=== PATIENT | female | born 1955 | race Caucasian/White ===

== ENCOUNTER 2019-11-13 14:15 | Outpatient (AMBR) | payer MEDICAID, SELFPAY ==
--- NOTE | 2019-11-13 14:25 | PT.OIERPT ---
PT OP Initial Eval Patient Information Visit Reasons: polyarthritis Medical Diagnosis: M13.0 Treatment Dx #1: B LE pain Start of Care: 11/13/19 Date of Onset: progressive Initial Assessment Subjective Pt is 63 yr old female with c/o multiple sites of pain R ankle and foot, L/S, R hip and neck pain. The L knee is numb and she reports B hand OA. The main concern are the back, R hip and foot. Increased pain with walking on uneven ground, prolonged standing, sitting and bending. Her balance feels off and she has trouble standing up from seated position. PMH: C-sections, HTN, allergies, thyroidism, Hx of falls with LOC, mini-stroke Imaging: in EMR Pt goal: to walk straighter with better balance, she would like to stand up easier. 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 Pt has R LE weakness compared to the L and difficulty with SLR attributed to bursitis and LBP. Pt has decreased R LE advancement and step length compared to the L and decreased foot clearance. Pt requires skilled therapy in order to improve R LE strength, decrease pain and she has fair rehab potential. 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 Ind with HEP 2. Improved R LE strength to at least 4-/5 quads and HS 3. Pt will SLR to at least 50 deg on R 4. Pt will ambulate with symmetrical step length and B feet will clear the floor for 100' Treatment Plan 1. Manual therapy 2. Therex 3. Modalities as indicated, moist heat, ice, estim Frequency and Duration 2x a week for 6 weeks Certification Dates: 11/13/19 to 02/13/20 Office Procedures PT Procedures PT Date of Service: 11/13/19 OP PT Eval Mod Complex 30 minutes: Yes
--- NOTE | 2019-11-18 17:32 | PT.ODAYNRPT ---
PT Outpatient Daily Note Date of Service: 11/18/19 OP Daily Note Visit Reasons: polyarthritis Outpatient Physical Therapy Treatment Date: 11/18/19 Subjective: Same as time of evaluation Objective: See F/S for therex MHP L knee x5' Assessment: Good response to therex with low tissue irritability and no significant increase in L knee pain or LBP. Plan: Continue per POC Length of Time (minutes) of Treatment: 30 Minutes Office Procedures PT Procedures PT Date of Service: 11/13/19 OP PT Eval Mod Complex 30 minutes: Yes PT Procedures PT Date of Service: 11/18/19 Therapeutic Exercise 30 minutes: Yes
--- NOTE | 2019-11-20 18:43 | PT.ODAYNRPT ---
PT Outpatient Daily Note Date of Service: 11/20/19 OP Daily Note Pediatric or Adult Patient: Adult PT >13 Visit Reasons: polyarthritis Outpatient Physical Therapy Treatment Date: 11/20/19 Subjective: My legs have been wanting to give out today she points to the L LE and says it cramps and then wants to give out Objective: See F/S for therex Assessment: Pt was not feeling like her LE's were strong today so she did supine therex instead. Pt has genu valgus knee biomechanics in standing and seems to be moving constantly nervously. Good response to supine therex with low tissue irritability and no significant increase in L knee pain or LBP. Plan: Continue per POC Length of Time (minutes) of Treatment: 30 Minutes Office Procedures PT Procedures PT Date of Service: 11/13/19 OP PT Eval Mod Complex 30 minutes: Yes PT Procedures PT Date of Service: 11/18/19 Therapeutic Exercise 30 minutes: Yes PT Procedures PT Date of Service: 11/20/19 Therapeutic Exercise 30 minutes: Yes
== END 2019-11-21 23:59 | disposition home or self-care (01) ==
PROVIDERS: PCP Physician Assistant; Referring Provider Physician Assistant; Visit Provider Physician Assistant
DX: M13.0 Polyarthritis, unspecified (principal); M25.571 Pain in right ankle and joints of right foot; M25.551 Pain in right hip; M54.2 Cervicalgia; M54.5 Low back pain; R53.1 Weakness; R20.0 Anesthesia of skin; I10 Essential (primary) hypertension
CPT/HCPCS: 97110; 97162

== ENCOUNTER 2019-12-03 14:40 | Outpatient (AMBR) | payer MEDICAID, SELFPAY ==
--- NOTE | 2019-12-03 15:53 | PT.ODAYNRPT ---
PT Outpatient Daily Note Date of Service: 12/03/19 OP Daily Note Visit Reasons: polyarthritis Outpatient Physical Therapy Treatment Date: 12/03/19 Subjective: Pt reports high LBP level on Sunday and Sunday this week with dizziness and unsteady balance that has resolved. Objective: See F/S for therex Assessment: Pt is sometimes impulsive with her movements and she rocks back and forth in standing. She stands with B knee valgus. Able to perform the therex in supine and the recumbent bike without significant pain. Plan: Continue per POC Length of Time (minutes) of Treatment: 30 Minutes Office Procedures PT Procedures PT Date of Service: 12/03/19 Therapeutic Exercise 30 minutes: Yes
== END 2019-12-22 23:59 | disposition home or self-care (01) ==
PROVIDERS: PCP Physician Assistant; Referring Provider Physician Assistant; Visit Provider Physician Assistant
DX: M13.0 Polyarthritis, unspecified (principal); M79.662 Pain in left lower leg; M79.661 Pain in right lower leg; M25.572 Pain in left ankle and joints of left foot; M25.571 Pain in right ankle and joints of right foot; M54.2 Cervicalgia; M54.5 Low back pain; M25.551 Pain in right hip; R20.0 Anesthesia of skin; I10 Essential (primary) hypertension
CPT/HCPCS: 97110

== ENCOUNTER 2019-12-26 13:29 | Outpatient (AMBR) | payer MEDICARE, MEDICAID, SELFPAY ==
--- NOTE | 2019-12-26 14:41 | PT.ODAYNRPT ---
PT Outpatient Daily Note Date of Service: 12/26/2019 OP Daily Note Visit Reasons: polyarthritis Outpatient Physical Therapy Treatment Date: 12/26/19 Subjective: pt stated she fell a weeks ago and landed on her buttocks and does have bruise on the L side. the fall has caused more pain and difficulty with sitting and laying down. Objective: see flow sheet. Assessment: pt needed extra time to adjust her sitting and supine position due to her pain of the buttocks. pt ambulates with antalgic gait pattern. her concern during therapy was to add balance exercises as she feels unsteady. assisted pt with bed mobility supine>sit. she was able to complete the exercises in supine with no complaints. Plan: continue POC per PT. add balance exercises next visit per pt request. Length of Time (minutes) of Treatment: 30 Minutes Office Procedures PT Procedures PT Date of Service: 12/26/19 Therapeutic Exercise 30 minutes: Yes
--- NOTE | 2020-01-08 16:23 | PT.ODAYNRPT ---
PT Outpatient Daily Note Date of Service: 01/08/20 OP Daily Note Visit Reasons: polyarthritis Outpatient Physical Therapy Treatment Date: 01/08/20 Subjective: Pt has variable LE pain that affects her balance. Objective: See F/S for therex Assessment: Balance challenged in tandem stance and on uneven surfaces. Plan: Continue per POC Length of Time (minutes) of Treatment: 30 Minutes Office Procedures PT Procedures PT Date of Service: 12/26/19 Therapeutic Exercise 30 minutes: Yes PT Procedures PT Date of Service: 01/08/20 Therapeutic Exercise 30 minutes: Yes
--- NOTE | 2020-01-20 19:03 | PT.ODAYNRPT ---
PT Outpatient Daily Note Date of Service: 01/20/20 OP Daily Note Pediatric or Adult Patient: Adult PT >13 Visit Reasons: polyarthritis Outpatient Physical Therapy Treatment Date: 01/20/20 Subjective: Pt has variable LE pain that affects her balance. Objective: See F/S for therex Assessment: Balance challenged in tandem stance and on uneven surfaces. Plan: Continue per POC Length of Time (minutes) of Treatment: 30 Minutes Office Procedures PT Procedures PT Date of Service: 01/20/20 Therapeutic Exercise 30 minutes: Yes PT Procedures PT Date of Service: 12/26/19 Therapeutic Exercise 30 minutes: Yes PT Procedures PT Date of Service: 01/08/20 Therapeutic Exercise 30 minutes: Yes
== END 2020-01-21 23:59 | disposition home or self-care (01) ==
PROVIDERS: PCP Physician Assistant; Referring Provider Physician Assistant; Visit Provider Physician Assistant
DX: M13.0 Polyarthritis, unspecified (principal); M25.572 Pain in left ankle and joints of left foot; M25.571 Pain in right ankle and joints of right foot; M54.5 Low back pain; M25.551 Pain in right hip; M54.2 Cervicalgia; R20.0 Anesthesia of skin; R53.1 Weakness; Z91.81 History of falling; I10 Essential (primary) hypertension
CPT/HCPCS: 97110

== ENCOUNTER 2024-03-20 16:27 | Inpatient (IN) | payer MEDICARE, MEDICAID, SELFPAY ==
[2024-03-20] VITALS (8 sets, daily range): BP systolic 117–178; BP diastolic 74–96; PULSE 82–100; RESP 16–23; TEMP 36.6–36.8; O2SAT 86–100; BMI 31.0
--- NOTE | 2024-03-20 16:29 | XR_ITS ---
Examination:Left hip AP, lateral, AP pelvis 3 views Technique: Hip AP lateral, AP pelvis, 3 views Exam date and time:The 24 1712 hrs. Indications: Patient fell today with into the left hip, left hip pain. Findings: Acute impacted fracture subcapital left hip Moderate to advanced bilateral hip osteoarthritis Severe osteopenia Right hip bones of the pelvis intact Impression: Acute impacted left subcapital hip fracture.
--- NOTE | 2024-03-20 16:32 | PD.EDLOWEX ---
Lower Extremity Injury RME/HPI General Chief Complaint: Fall Stated Complaint: FALL Time Seen by Provider: 03/20/24 16:28 Source: patient and EMS Arrival date/time: 03/20/24 16:27 Limitations: no limitations RME / HPI RME / HPI Narrative: History of Present Illness (HPI): The patient was brought in by ambulance (BIBA) after a ground-level fall (GLF). Her foot got tangled in a cord, causing her to fall onto her left hip. She did not sustain any other injuries from this fall. The patient was able to get up and walk despite experiencing pain. 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 The patient has a history of asthma and does not take any blood thinners. Related Data Home Medications ?Medication ?Instructions ?Recorded ?Confirmed amlodipine 5 mg tablet 5 mg PO QDAY 09/30/19 08/30/20 citalopram 40 mg tablet 40 mg PO QDAY 09/30/19 08/30/20 montelukast 10 mg tablet 10 mg PO QPM 09/30/19 08/30/20 omeprazole 20 mg tablet,delayed 20 mg PO QDAY 09/30/19 08/30/20 release oxybutynin chloride 5 mg tablet 5 mg PO TID 09/30/19 08/30/20 hydrochlorothiazide 12.5 mg capsule 12.5 mg PO QDAY 07/26/20 08/30/20 quetiapine 100 mg tablet (Seroquel) 100 mg PO HS 07/26/20 08/30/20 duloxetine 30 mg capsule,delayed 30 mg PO BID 08/30/20 08/30/20 release gabapentin 300 mg capsule 300 mg PO BID 08/30/20 08/30/20 valsartan 320 1 tab PO QDAY 08/30/20 08/30/20 mg-hydrochlorothiazide 25 mg tablet Previous Rx's ?Medication ?Instructions ?Recorded albuterol sulfate 90 mcg/actuation 2 puff inhalation Q6H PRN 07/28/20 aerosol inhaler shortness of breath or wheezing #8.5 grams amoxicillin 875 mg-potassium 1 tab PO BID #6 tabs 09/01/20 clavulanate 125 mg tablet prednisone 20 mg tablet 20 mg PO QDAY #2 tabs 09/01/20 Allergies Allergy/AdvReac Type Severity Reaction Status Date / Time Sulfa (Sulfonamide Allergy Unknown Verified 03/20/24 16:44 Antibiotics) Review of Systems Review of Systems Systems Reviewed: All systems reviewed, normal except as documented ED Exam General Limitations: Present no limitations General appearance: Present alert Head Head exam: Present atraumatic Eye Eye exam: Present normal appearance ENT ENT exam: Present normal exam Neck Neck exam: Present normal inspection Chest Chest inspection: Present normal inspection Respiratory Respiratory exam: Present normal lung sounds bilaterally Cardiovascular Cardiovascular exam: Present regular rate and normal rhythm Abdominal Exam Abdominal exam: Present soft and normal bowel sounds Rectal Exam Rectal exam: Present deferred External exam: Present other (Patient has diffuse tinea cruris ) Expanded Lower Extremity Exam Hip/Pelvis exam: Present normal inspection and tenderness (Diffuse L hip without bruise. Normal bony structure of the entire leg. distal neurovascular is intact) Leg image: 1. Back Exam Back exam: Present normal inspection Course Quality Measures none Orders Category Date Time Status COVID-19 Screening Questionnaire NOW Care 03/20/24 21:[address] Screening NOW Care 03/20/24 17:26 Active Receiver Stocker Q4H START 00 Care 03/20/24 18:37 Active Continuous Pulse Oximetry NOW Care 03/20/24 18:36 Completed Decision to Admit X1 Care 03/20/24 21:20 Completed EKG (ED ONLY) *Do not use* NOW Care 03/20/24 17:26 Completed Dorsey [Urinary Catheter] QS Care 03/20/24 18:33 Active Miscellaneous Nursing Order NOW Care 03/20/24 19:47 Completed NPO NOW Care 03/20/24 18:36 Active Consult to Cardiology Stat Cons 03/20/24 19:[address] angio chest Stat Exams 03/20/24 17:[address] pelvis wo con Stat Exams 03/20/24 17:27 Completed EKG (ED Only) Stat Exams 03/20/24 17:26 Draft XR chest 1V portable Stat Exams 03/20/24 20:48 Completed XR hip LT w pelvis 2-3V Stat Exams 03/20/24 16:29 Completed Alcohol, Blood Medical Stat Lab 03/20/24 18:49 Completed Arterial Blood Gas Stat Lab 03/20/24 18:37 Ordered B-Type Natriuretic Peptide Stat Lab 03/20/24 18:46 Completed Blood Culture (Lab) Stat Lab 03/20/24 18:49 Received CBC Stat Lab 03/20/24 16:48 Completed CMP [Comprehensive Metabolic Panel] Stat Lab 03/20/24 16:48 Completed Creatine Kinase Stat Lab 03/20/24 16:48 Completed Drug Screen,Urine Stat Lab 03/20/24 19:42 Completed LDH (Lactate Dehydrogenase) Stat Lab 03/20/24 18:49 Completed Lactate (Lactic Acid) Stat Lab 03/20/24 18:49 Completed Lipase Stat Lab 03/20/24 18:49 Completed Magnesium Stat Lab 03/20/24 18:49 Completed Partial Thromboplastin Time Stat Lab 03/20/24 18:49 Completed Phosphorous Stat Lab 03/20/24 18:49 Completed Procalcitonin Stat Lab 03/20/24 18:49 Completed Prothrombin Time with INR Stat Lab 03/20/24 18:49 Completed Troponin I Stat Lab 03/20/24 16:48 Completed UA, C/S IF [Urinalysis, C/S if Indicated] Stat Lab 03/20/24 19:42 Completed Urine Culture Stat Lab 03/20/24 19:42 Received Albuterol/Ipratr Rt Pooja [Duoneb Rt Pooja] Med 03/20/24 16:29 Discontinued 3 ml INH X1 ONE DiphenhydrAMINE INJ [Benadryl Inj] Med 03/20/24 22:08 Discontinued 25 mg IVP X1 ONE HYDROmorphone INJ [Dilaudid Inj] Med 03/20/24 18:29 Discontinued 1 mg IVP X1 ONE LORazepam [Ativan Inj] Med 03/20/24 18:29 Discontinued 0.5 mg IVP X1 ONE LORazepam [Ativan Inj] Med 03/20/24 21:57 Discontinued 1 mg IVP X1 ONE Morphine Inj Med 03/20/24 21:55 Discontinued 2 mg IVP X1 ONE Morphine Inj Med 03/20/24 17:15 Discontinued 4 mg IV X1 ONE Ondansetron Inj [Zofran Inj] Med 03/20/24 18:29 Discontinued 4 mg IV X1 ONE Sodium Chloride 0.9% 500 ml [Ns] 500 ml Med 03/20/24 18:36 Discontinued IV 999 mls/hr cefTRIAXone/D5w 1gm IV premix [Rocephin/D5w 1gm IV Med 03/20/24 20:38 Discontinued premix] 50 ml IV X1 Oxygen Delivery NOW RT 03/20/24 17:32 Active Oxygen Delivery NOW RT 03/20/24 18:36 Completed Vital Signs Vital signs: Vital Signs Temperature 98.2 F 03/20/24 16:32 Pulse Rate 96 03/20/24 16:32 Respiratory Rate 17 03/20/24 16:32 Blood Pressure 178/85 H 03/20/24 16:32 Pulse Oximetry (%) 86 L 03/20/24 16:32 Oxygen Delivery Method Room Air 03/20/24 16:32 Extremity Injury, Lower MDM Narrative MDM Narrative:: The preliminary x-ray showed a compacted fracture of the left hip. The patient was discussed with Dr. Craven, who will see the patient here in the emergency department. Also, patient is hypoxic and the cardiac workup including his CT angiogram was ordered. My shift has ended and the patient's care is transitioned to Dr. Headley Patient data External records reviewed:: [facility] previous records and EMS form Clinical information provided by:: patient Social determinants that could affect healthcare access:: none Patient has the following chronic illnesses:: COPD How is presenting disease/condition affected by chronic disease/condition?: no chronic disease Evaluation data The following diagnostics were reviewed and interpreted by me:: other (specify) Lab and/or radiology exams considered but not ordered:: not applicable Interpretation Summary: Not applicable Medications / Prescriptions Medications or Prescriptions considered but not ordered:: Not applicable Medication administrations:: Medication Administration History Acetaminophen (Acetaminophen 325 Mg Tablet) 650 mg PO Q6H PRN PRN Reason: PAIN OR FEVER > 101 Stop: 04/19/24 22:10 Albuterol/Ipratropium (Albuterol/Ipratropium (Duoneb) Rt Pooja 3 Ml Nebu) 3 ml INH Q4HR MARY BETH Stop: 04/20/24 03:44 Last Admin: 03/21/24 03:57 Dose: 3 ml Documented By: GB Furosemide (Furosemide Inj 10 Mg/Ml 4ml Vial) 40 mg IVP QDAY MARY BETH Stop: 04/20/24 08:59 Piperacillin/Tazobactam/Dextrose (Zosyn) 3.375 gm in 50 mls @ 12.5 mls/hr IV Q8HR MARY BETH Stop: 03/28/24 04:03 Last Admin: 03/21/24 04:12 Dose: 12.5 mls/hr Documented By: RB Potassium Chloride (Kcl Ivpb) 10 meq in 100 mls @ 100 mls/hr IV Q1H MARY BETH Stop: 03/21/24 08:15 Last Admin: 03/21/24 04:29 Dose: 75 mls/hr Documented By: JOSE Lorazepam (Lorazepam 2 Mg/Ml Vial) 2 mg IVP X1 PRN PRN Reason: AGITATION (MODERATE) Stop: 03/26/24 03:36 Last Admin: 03/21/24 03:50 Dose: 2 mg Documented By: JOSE Morphine Sulfate (Morphine Sulf Inj 10 Mg/Ml Vial) 2 mg IVP Q3H PRN PRN Reason: PAIN SCALE 7-10 (Severe Stop: 03/25/24 22:10 Last Admin: 03/21/24 01:21 Dose: 2 mg Documented By: JEREMY Ondansetron HCl (Ondansetron Inj 2 Mg/Ml Inj 2 Ml) 4 mg IV Q6H PRN; Protocol PRN Reason: NAUSEA OR VOMITING Stop: 04/19/24 22:10 Last Admin: 03/21/24 01:22 Dose: 4 mg Documented By: JEREMY Oxycodone/Acetaminophen (Oxycodone/Apap 5/325 Tablet) 1 tab PO Q6H PRN PRN Reason: PAIN SCALE 4-6 (Moderate Stop: 03/25/24 22:10 Pantoprazole Sodium (Pantoprazole 40 Mg Tablet) 40 mg PO QDAY [facility] Stop: 04/20/24 08:59 Prednisone (Prednisone 20 Mg Tablet) 40 mg PO QDAY [facility] Stop: 03/28/24 03:39 Discontinued Medications Albuterol/Ipratropium (Albuterol/Ipratropium (Duoneb) Rt Pooja 3 Ml Nebu) 3 ml INH X1 ONE Stop: 03/20/24 16:30 Last Admin: 03/20/24 17:22 Dose: 3 ml Documented By: MARIANNE Albuterol/Ipratropium (Albuterol/Ipratropium (Duoneb) Rt Pooja 3 Ml Nebu) 3 ml INH Q4H PRN PRN Reason: SHORTNESS OF BREATH OR WHEEZE Stop: 04/19/24 22:14 Last Admin: 03/20/24 23:00 Dose: 3 ml Documented By: TRAVIS Diphenhydramine HCl (Diphenhydramine Inj 50 Mg/Ml Vial) 25 mg IVP X1 ONE Stop: 03/20/24 22:09 Last Admin: 03/20/24 22:12 Dose: 25 mg Documented By: JEREMY Furosemide (Furosemide Inj 10 Mg/Ml 4ml Vial) 40 mg IVP X1 ONE Stop: 03/21/24 00:56 Last Admin: 03/21/24 01:17 Dose: 40 mg Documented By: JEREMY Haloperidol Lactate (Haloperidol Lact Inj 5 Mg/Ml Vial) 2 mg IV X1 ONE Stop: 03/21/24 00:57 Last Admin: 03/21/24 01:16 Dose: 2 mg Documented By: JEREMY Hydromorphone HCl (Hydromorphone Inj 2 Mg/Ml Vial) 1 mg IVP X1 ONE Stop: 03/20/24 18:30 Last Admin: 03/20/24 18:36 Dose: 1 mg Documented By: REY Sodium Chloride (Ns) 500 mls @ 999 mls/hr IV .Q31M ONE Stop: 03/20/24 19:06 Last Infusion: 03/20/24 21:02 Dose: Infused Documented By: Admin: 03/20/24 18:45 Dose: 999 mls/hr Documented By: ALICIA Ceftriaxone Sodium/Dextrose (Rocephin/D5w 1gm Iv Premix) 50 mls @ 100 mls/hr IV X1 ONE Stop: 03/20/24 21:07 Last Infusion: 03/20/24 21:52 Dose: Infused Documented By: Admin: 03/20/24 21:04 Dose: 100 mls/hr Documented By: JEREMY Sodium Chloride (Ns) 1,000 mls @ 75 mls/hr IV .[id number] MARY BETH Stop: 03/21/24 11:34 Last Admin: 03/20/24 22:21 Dose: 75 mls/hr Documented By: JEREMY Ceftriaxone Sodium/Dextrose (Rocephin/D5w 1gm Iv Premix) 50 mls @ 100 mls/hr IV QDAY MARY BETH Stop: 03/28/24 08:59 Magnesium Sulfate (Magnesium Sulfate Ivpb) 2 gm in 50 mls @ 25 mls/hr IV X1 ONE Stop: 03/21/24 02:55 Last Admin: 03/21/24 01:25 Dose: 25 mls/hr Documented By: JEREMY Lorazepam (Lorazepam 2 Mg/Ml Vial) 0.5 mg IVP X1 ONE Stop: 03/20/24 18:30 Last Admin: 03/20/24 18:37 Dose: 0.5 mg Documented By: GM Lorazepam (Lorazepam 2 Mg/Ml Vial) 1 mg IVP X1 ONE Stop: 03/20/24 21:58 Last Admin: 03/20/24 22:05 Dose: 1 mg Documented By: JE Lorazepam (Lorazepam 2 Mg/Ml Vial) 2 mg IVP X1 ONE Stop: 03/21/24 03:34 Methylprednisolone Sodium Succinate (Methylprednisolone Sod Succ 40 Mg Vial) 125 mg IVP X1 ONE Stop: 03/21/24 03:37 Last Admin: 03/21/24 03:45 Dose: 125 mg Documented By: RB Morphine Sulfate (Morphine Sulf Inj 10 Mg/Ml Vial) 4 mg IV X1 ONE Stop: 03/20/24 17:16 Last Admin: 03/20/24 17:21 Dose: 4 mg Documented By: RD Morphine Sulfate (Morphine Sulf Inj 10 Mg/Ml Vial) 2 mg IVP X1 ONE Stop: 03/20/24 21:56 Last Admin: 03/20/24 22:04 Dose: 2 mg Documented By: JEREMY Morphine Sulfate (Morphine Sulf Inj 10 Mg/Ml Vial) 2 mg IVP Q4H PRN PRN Reason: PAIN SCALE 7-10 (Severe Stop: 03/25/24 22:10 Ondansetron HCl (Ondansetron Inj 2 Mg/Ml Inj 2 Ml) 4 mg IV X1 ONE; Protocol Stop: 03/20/24 18:30 Last Admin: 03/20/24 18:44 Dose: 4 mg Documented By: TM Noted Consultations Consultation(s) initiated? (list below): Yes Consultation #1 (Physician, Specialty, Details): Orthopedic surgery Diagnosis Extremity Injury, Lower Differential Diagnosis: other Most likely diagnosis given after review of the tests above:: Fracture of L hip Admission Indicated Admission indicated?: indicated Explain why admission is indicated or not indicated:: Evaluation is pending Admission Request Was there a request for admission?: Yes Admission Attestation Admission request attestation: Discussed case with [] from Hospitalist service regarding admission. Discussed patients ED course, exam findings, labs, and radiology results. The Hospitalist [agrees,declines] to accept the patient for admission. Disposition Plan Disposition Plan: Admit Discharge Plan Plan Patient Disposition: Admit Acute Care w/in Hospital Disposition Comment: med/surg Patient condition on transfer: Stable Problem List Clinical Impression: Fracture of hip, left, closed, Hypoxia
[2024-03-20] MEDS: MORPHINE SULF INJ 10 MG/ML VIAL 4 MG IV (17:21)
[2024-03-20] MEDS: ALBUTEROL/IPRATROPIUM (Duoneb) RT SOL 3 ML NEBU INH ×2 (17:22→23:00)
--- NOTE | 2024-03-20 17:26 | EKG_ITS ---
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
--- NOTE | 2024-03-20 17:26 | XR_ITS ---
Examination: CTA chest with intravenous contrast 2-D reconstructions 3-D reconstructions, vascular Date and time of exam: March 20, 2024 at 2040 hrs. Indications: Dyspnea hypoxia chest pain today, clinical diagnosis pulmonary emboli CTDI: vol (mGy) 12.3 DLP: (mGycm) 430 Technique: Multiple axial sections of the thorax have been obtained. 3 mm slice thickness, from below the hemidiaphragms to above the apices of the lungs. Mediastinal and lung density settings have been obtained. 2-D sagittal and coronal reconstructions. 3-D angiographic renderings, 3-D volume renderings, 3D post processing, vascular maximum intensity projections obtained. Contrast administered is 100 cc Isovue-370 intravenous. Low dose protocols were performed. One or more of the following dose reduction techniques were used; automated exposure control, adjustment of the mA and/or KV according to patient size, use of iterative reconstruction technique. Findings: No thoracic aortic aneurysmal dilatation Pulmonary artery segments are not enlarged No pulmonary artery emboli Enlarged cardiac contour with prominent vascular congestion and bilateral significant septal pulmonary edema No focal liver or splenic lesions No definite gallstones No pancreatic or adrenal mass No hydronephrosis Impression: Negative for pulmonary artery emboli Moderate CHF
--- NOTE | 2024-03-20 17:27 | XR_ITS ---
Examination: CT pelvis without intravenous contrast. 2-D sagittal and coronal reconstructions. Date and time of exam:March 18, 2024 2037 hrs. Indications: Patient fell today with injury to the left hip, left hip pain CTDI: vol (mGy) :11.6 DLP: (mGycm) : 428 Technique: Multiple 3 mm axial sections of the pelvis have been obtained with the 64 slice high resolution scanner. 2-D sagittal and coronal reconstructions. Low dose protocols were performed. One or more of the following dose reduction techniques were used; automated exposure control, adjustment of the mA and/or KV according to patient size, use of iterative reconstruction technique. Findings: Prominent osteopenia All of these images are severely degraded by patient motion The plain films left hip examination demonstrates an impacted left subcapital hip fracture Impression: The CT examination is essentially a nondiagnostic study
[2024-03-20 17:59] LABS: Basophils # (Auto) 0.1 Thou/mm3 (0.0-0.2); Basophils % (Auto) 0 % (0-2.5); Eosinophils # (Auto) 0.1 Thou/mm3 (0.0-0.5); Eosinophils % (Auto) 1 % (0-10); Hematocrit 37.9 % (36.0-46.0); Hemoglobin 12.8 g/dL (12.0-16.0); Immature Granulocytes % (Auto) 0 % (0-0); Immature Granulocytes Auto 0.07 Thou/mm3 (0.00-0.00); Lymphocytes # (Auto) 1.2 Thou/mm3 (1.0-4.8); Lymphocytes % (Auto) 7 % (10-50); Mean Corpuscular HGB Conc 33.8 g/dl (31.0-37.0); Mean Corpuscular Hemoglobin 30.1 pg (25.0-35.0); Mean Corpuscular Volume 89 fL (80-100); Monocytes # (Auto) 0.9 Thou/mm3 (0.0-0.8); Monocytes % (Auto) 5 % (0-12); Neutrophils # (Auto) 14.6 Thou/mm3 (1.8-7.7); Neutrophils % (Auto) 86 % (37-80); Nucleated Red Blood Cell % 0 /100 WBC (0); Platelet Count 321 Thou/mm3 (140-440); RDW Standard Deviation 42.6 fL (36.4-46.3); Red Blood Count 4.25 Miln/mm3 (4.00-5.20); White Blood Count 16.9 Thou/mm3 (3.6-11.0)
[2024-03-20 18:17] LABS: Alanine Aminotransferase 14 U/L (10-49); Albumin, Serum 4.2 gm/dL (3.4-4.8); Albumin/Globulin Ratio 1.7 (1.2-2.2); Alkaline Phosphatase 70 U/L (46-116); Anion Gap 6 (7-16); Aspartate Amino Transferase 19 U/L (0-34); BUN/Creatinine Ratio 23 Ratio (12-20); Bilirubin,Total 0.5 mg/dL (0.3-1.2); Blood Urea Nitrogen 21 mg/dL (9-23); Calcium 9.4 mg/dL (8.3-10.6); Calcium (Corrected) 9.4 mg/dL (8.5-10.1); Chloride 103 mMol/L (98-107); Creatinine (Component) 0.9 mg/dL (0.6-1.3); Estimated Creatinine Clearance 61.2 mL/min (>60); Globulin 2.5 gm/dL (2.3-3.5); Glucose 105 mg/dL (74-106); Osmolality,Calculated 274 (275-295); Potassium 3.2 mMol/L (3.4-5.1); Sodium 136 mMol/L (136-145); Total Protein 6.7 gm/dL (5.7-8.2); eGFR > 60 See Note
[2024-03-20 18:20] LABS: Troponin I < 0.020 ng/mL (0.0-0.045)
[2024-03-20] MEDS: HYDROmorphone INJ 2 MG/ML VIAL 1 MG IVP (18:36)
[2024-03-20] MEDS: LORazepam 2 MG/ML VIAL 0.5 MG IVP (18:37)
--- NOTE | 2024-03-20 18:40 | PD.EDFALL ---
ED Fall Injury RME/HPI General Chief Complaint: Fall Stated Complaint: FALL Time Seen by Provider: 03/20/24 16:28 Source: patient and EMS Arrival date/time: 03/20/24 16:27 Limitations: no limitations RME / HPI RME / HPI Narrative: History of Present Illness (HPI): The patient was brought in by ambulance (BIBA) after a ground-level fall (GLF). Her foot got tangled in a cord, causing her to fall onto her left hip. She did not sustain any other injuries from this fall. The patient was able to get up and walk despite experiencing pain. Emergency Medical Services (EMS) administered 1 gram of acetaminophen prior to arrival (POLICE ARTIST). The patient has a history of asthma and does not take any blood thinners. 0 Took over care of the patient from Dr. Gibbons at 1800. Patient is a 68-year-old female who presented to the emergency department via EMS after ground-level fall at home. Patient states that her feet became tangled in the tubing from an oxygen tank and she tripped and fell off of a porch. Patient states she fell onto her left side and had immediate severe left hip pain. She was able to stand and walk although had severe pain to the left hip area. Patient denies striking head, LOC, symptoms before the stumble and fall such as lightheadedness, dizziness, chest pain. She denies neck pain, focal neurologic complaints. Patient denies abdominal pain, entire back pain, upper extremities pain, right lower extremity pain. Patient denies prior diarrhea, nausea, vomiting, diaphoresis. And route the patient received a gram of Ofirmev but arrived in 10/10 pain. Patient arrived with mild hypertension and a pulse ox of she was given 4 mg of morphine. When I arrived she stated that she was very much still in pain. She had severe choreoathetotic movements and states that she has a significant diagnosis secondary to taking psychiatric medications over a long number of years. She states she is on some kind of medicine for that but she does not remember the name. Patient stating she is in a lot of pain. I ordered 1 of Dilaudid, 0.5 Ativan, 4 of Zofran. Patient taken to CT EKG 18:30 sinus tachycardia at 103. Right axis deviation but T wave inversions in II, III and aVF no ectopy. No STEMI 1931 patient was brought over to the CT suite but her choreoathetotic movements were so severe they were unable to perform the study. I been informed by nursing staff that just prior to my arrival the patient was resting comfortably and playing on her phone. They did not note any movement disorder whatsoever. When I spoke to the patient about this and asked her why she was moving so severely now but was not just prior to my arrival she stated that she been moving like this since she was a kid . 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 I let her know that we would not be medicating her further with Ativan or narcotics as she has had a large dose. I asked her if she thought she can hold still for 60 seconds in order to get the CT of her chest to rule out a very serious lung problem and she stated that she thought she would be able to do so. Urine still has not been collected but I spoke with the nurse and asked him to use straight cath and send the urine TRACY. Will try to obtain the CT again and if unsuccessful will admit the patient [address] suite again. I called the equipment maintenance technician and he states that the patient was moving but they were able to get a suboptimal CT. Patient's labs are back now. She is positive for methamphetamine. This explains her extreme choreoathetotic movements. Unfortunately a chest x-ray was never ordered and I have added that. I doubt the CT chest is going to be of high enough quality for us to rule out infiltrate. Patient does have a urinary tract infection. Patient's leukocytosis and her initial heart rate of 96 represent 2 SIRS criteria. With her infection patient meets simple sepsis criteria. I spoke with Dr. Salazar and his residents who were here in the emergency department. We discussed patient's case in detail and they kindly agreed to admit the patient to the hospital. CTA chest is still pending Related Data Home Medications ?Medication ?Instructions ?Recorded ?Confirmed amlodipine 5 mg tablet 5 mg PO QDAY 09/30/19 08/30/20 citalopram 40 mg tablet 40 mg PO QDAY 09/30/19 08/30/20 montelukast 10 mg tablet 10 mg PO QPM 09/30/19 08/30/20 omeprazole 20 mg tablet,delayed 20 mg PO QDAY 09/30/19 08/30/20 release oxybutynin chloride 5 mg tablet 5 mg PO TID 09/30/19 08/30/20 hydrochlorothiazide 12.5 mg capsule 12.5 mg PO QDAY 07/26/20 08/30/20 quetiapine 100 mg tablet (Seroquel) 100 mg PO HS 07/26/20 08/30/20 duloxetine 30 mg capsule,delayed 30 mg PO BID 08/30/20 08/30/20 release gabapentin 300 mg capsule 300 mg PO BID 08/30/20 08/30/20 valsartan 320 1 tab PO QDAY 08/30/20 08/30/20 mg-hydrochlorothiazide 25 mg tablet Previous Rx's ?Medication ?Instructions ?Recorded albuterol sulfate 90 mcg/actuation 2 puff inhalation Q6H PRN 07/28/20 aerosol inhaler shortness of breath or wheezing #8.5 grams amoxicillin 875 mg-potassium 1 tab PO BID #6 tabs 09/01/20 clavulanate 125 mg tablet prednisone 20 mg tablet 20 mg PO QDAY #2 tabs 09/01/20 Allergies Allergy/AdvReac Type Severity Reaction Status Date / Time Sulfa (Sulfonamide Allergy Unknown Verified 03/20/24 16:44 Antibiotics) ED Exam General Limitations: Present no limitations General appearance: Present alert Course Orders Category Date Time Status CT Screening NOW Care 03/20/24 17:26 Active Timber Sizer NOW Care 03/20/24 18:37 Active Continuous Pulse Oximetry NOW Care 03/20/24 18:36 Active EKG (ED ONLY) *Do not use* NOW Care 03/20/24 17:26 Completed Dorsey [Urinary Catheter] QS Care 03/20/24 18:33 Active Miscellaneous Nursing Order NOW Care 03/20/24 19:47 Active NPO NOW Care 03/20/24 18:36 Active Consult to Cardiology Stat Cons 03/20/24 19:[address] angio chest Stat Exams 03/20/24 17:[address] pelvis wo con Stat Exams 03/20/24 17:27 Ordered EKG (ED Only) Stat Exams 03/20/24 17:26 Draft XR chest 1V portable Stat Exams 03/20/24 20:48 Ordered XR hip LT w pelvis 2-3V Stat Exams 03/20/24 16:29 Completed Alcohol, Blood Medical Stat Lab 03/20/24 18:49 Completed Arterial Blood Gas Stat Lab 03/20/24 18:37 Ordered B-Type Natriuretic Peptide Stat Lab 03/20/24 20:51 Ordered Blood Culture (Lab) Stat Lab 03/20/24 20:39 Ordered CBC Stat Lab 03/20/24 16:48 Completed CMP [Comprehensive Metabolic Panel] Stat Lab 03/20/24 16:48 Completed Creatine Kinase Stat Lab 03/20/24 16:48 Completed Drug Screen,Urine Stat Lab 03/20/24 19:42 Completed LDH (Lactate Dehydrogenase) Stat Lab 03/20/24 20:51 Ordered Lactate (Lactic Acid) Stat Lab 03/20/24 18:49 Completed Lipase Stat Lab 03/20/24 18:49 Completed Magnesium Stat Lab 03/20/24 20:51 Ordered Partial Thromboplastin Time Stat Lab 03/20/24 18:49 Completed Phosphorous Stat Lab 03/20/24 20:51 Ordered Procalcitonin Stat Lab 03/20/24 20:51 Ordered Prothrombin Time with INR Stat Lab 03/20/24 18:49 Completed Troponin I Stat Lab 03/20/24 16:48 Completed UA, C/S IF [Urinalysis, C/S if Indicated] Stat Lab 03/20/24 19:42 Completed Urine Culture Stat Lab 03/20/24 19:42 Received Urine Culture Stat Lab 03/20/24 20:51 Ordered Albuterol/Ipratr Rt Pooja [Duoneb Rt Pooja] Med 03/20/24 16:29 Discontinued 3 ml INH X1 ONE HYDROmorphone INJ [Dilaudid Inj] Med 03/20/24 18:29 Discontinued 1 mg IVP X1 ONE LORazepam [Ativan Inj] Med 03/20/24 18:29 Discontinued 0.5 mg IVP X1 ONE Morphine Inj Med 03/20/24 17:15 Discontinued 4 mg IV X1 ONE Ondansetron Inj [Zofran Inj] Med 03/20/24 18:29 Discontinued 4 mg IV X1 ONE Sodium Chloride 0.9% 500 ml [Ns] 500 ml Med 03/20/24 18:36 Discontinued IV 999 mls/hr cefTRIAXone/D5w 1gm IV premix [Rocephin/D5w 1gm IV Med 03/20/24 20:38 Active premix] 50 ml IV X1 Oxygen Delivery NOW RT 03/20/24 17:32 Active Oxygen Delivery NOW RT 03/20/24 18:36 Active Vital Signs Vital signs: Vital Signs Temperature 98.2 F 03/20/24 16:32 Pulse Rate 96 03/20/24 16:32 Respiratory Rate 17 03/20/24 16:32 Blood Pressure 178/85 H 03/20/24 16:32 Pulse Oximetry (%) 86 L 03/20/24 16:32 Oxygen Delivery Method Room Air 03/20/24 16:32 Fall Medications / Prescriptions Medication administrations:: Medication Administration History Ceftriaxone Sodium/Dextrose (Rocephin/D5w 1gm Iv Premix) 50 mls @ 100 mls/hr IV X1 ONE Stop: 03/20/24 21:07 Discontinued Medications Albuterol/Ipratropium (Albuterol/Ipratropium (Duoneb) Rt Pooja 3 Ml Nebu) 3 ml INH X1 ONE Stop: 03/20/24 16:30 Last Admin: 03/20/24 17:22 Dose: 3 ml Documented By: BJ Hydromorphone HCl (Hydromorphone Inj 2 Mg/Ml Vial) 1 mg IVP X1 ONE Stop: 03/20/24 18:30 Last Admin: 03/20/24 18:36 Dose: 1 mg Documented By: GM Sodium Chloride (Ns) 500 mls @ 999 mls/hr IV .Q31M ONE Stop: 03/20/24 19:06 Last Admin: 03/20/24 18:45 Dose: 999 mls/hr Documented By: TM Lorazepam (Lorazepam 2 Mg/Ml Vial) 0.5 mg IVP X1 ONE Stop: 03/20/24 18:30 Last Admin: 03/20/24 18:37 Dose: 0.5 mg Documented By: GM Morphine Sulfate (Morphine Sulf Inj 10 Mg/Ml Vial) 4 mg IV X1 ONE Stop: 03/20/24 17:16 Last Admin: 03/20/24 17:21 Dose: 4 mg Documented By: RD Ondansetron HCl (Ondansetron Inj 2 Mg/Ml Inj 2 Ml) 4 mg IV X1 ONE; Protocol Stop: 03/20/24 18:30 Last Admin: 03/20/24 18:44 Dose: 4 mg Documented By: ALICIA Discharge Plan Prescriptions/Referrals Prescriptions/Med Rec: No Action citalopram 40 mg Tablet 40 mg PO QDAY amlodipine 5 mg Tablet 5 mg PO QDAY montelukast 10 mg Tablet 10 mg PO QPM oxybutynin chloride 5 mg Tablet 5 mg PO TID omeprazole 20 mg Tablet,Delayed Release (Dr/Ec) 20 mg PO QDAY gabapentin 300 mg capsule 300 mg PO BID duloxetine 30 mg capsule,delayed release(DR/EC) 30 mg PO BID valsartan-hydrochlorothiazide 320-25 mg tablet 1 tab PO QDAY amoxicillin-pot clavulanate 875-125 mg tablet 1 tab PO BID Qty: 6 0RF prednisone 20 mg tablet 20 mg PO QDAY Qty: 2 0RF quetiapine [Seroquel] 100 mg Tablet 100 mg PO HS hydrochlorothiazide 12.5 mg Capsule 12.5 mg PO QDAY albuterol sulfate 90 mcg/actuation HFA aerosol inhaler 2 puff inhalation Q6H PRN (Reason: shortness of breath or wheezing) Qty: 8.5 0RF Referrals: Richi Abreu MD [Primary Care Provider] - In 1 week Patient/Caregiver Discharge Instructions Print Language: Uzbek
[2024-03-20] MEDS: ONDANSETRON INJ 2 MG/ML INJ 2 ML 4 MG IV (18:44)
[2024-03-20] MEDS: SODIUM CHLORIDE 0.9% 500 ML 500 ML 999 ML IV (18:45)
[2024-03-20 18:54] LABS: Creatine Kinase 53 U/L (34-171)
--- NOTE | 2024-03-20 19:25 | ESCONSULT_ITS ---
HPI Consult details Reason for consultation narrative: Pain left hip History of present illness: Patient was at her house and fell. After the fall she had pain in her left hip. She was able to ambulate with a cane. She had Thanksgiving with her daughter and was brought to the emergency room with severe pain left hip. No pain in her upper extremities left lower extremities. She does have pain in her left hip no pain left knee left ankle or foot Past Medical History Past Medical History NEUROLOGIC: Positive Neurological Disorders and Cerebrovascular Accident; Negative Alzheimer's Disease or Spinal Cord Injury CARDIAC: Positive Hypertension; Negative Cardiac Disorders, Myocardial Infarction, Congestive Heart Failure or Valvular Heart Disease RESPIRATORY: Positive Asthma, Pneumonia, Smoking and Tobacco Use; Negative Chronic Obstructive Pulmonary Disease (COPD) GASTROINTESTINAL: Negative Gastrointestinal Disorders GENITOURINARY: Negative Genitourinary Disorders or Renal Disease MUSCULOSKELETAL: Positive Musculoskeletal Disorders, Arthritis and Carpal Tunnel Syndrome; Negative Bone Cancer ENT: Positive Deafness; Negative Blind ENDOCRINE: Positive Endocrine Disorders, Hyperthyroidism, Hypothyroidism and Graves' Disease; Negative Diabetes Mellitus Type 1 or Diabetes Mellitus Type 2 HEMATOLOGIC: Negative Sickle Cell Disease PSYCHO/SOCIAL: Positive Psychiatric Problems, Bipolar Disorder, Depression and Anxiety OTHER HISTORY: Positive Falls; Negative Down Syndrome, Developmental Delay or Cancer Surgical History SURGICAL: Positive Abdominal Surgery, Hysterectomy and Section Social History SMOKING STATUS: Former smoker SUBSTANCE USE: former substance user, marijuana (current) and methamphetamine (former) Meds Home Medications and Allergies Home Medications ?Medication ?Instructions ?Recorded ?Confirmed ?Type amlodipine 5 mg tablet 5 mg PO QDAY 09/30/19 08/30/20 History citalopram 40 mg tablet 40 mg PO QDAY 09/30/19 08/30/20 History montelukast 10 mg tablet 10 mg PO QPM 09/30/19 08/30/20 History omeprazole 20 mg tablet,delayed 20 mg PO QDAY 09/30/19 08/30/20 History release oxybutynin chloride 5 mg tablet 5 mg PO TID 09/30/19 08/30/20 History hydrochlorothiazide 12.5 mg capsule 12.5 mg PO QDAY 07/26/20 08/30/20 History quetiapine 100 mg tablet (Seroquel) 100 mg PO HS 07/26/20 08/30/20 History duloxetine 30 mg capsule,delayed 30 mg PO BID 08/30/20 08/30/20 History release gabapentin 300 mg capsule 300 mg PO BID 08/30/20 08/30/20 History valsartan 320 1 tab PO QDAY 08/30/20 08/30/20 History mg-hydrochlorothiazide 25 mg tablet Allergies Allergy/AdvReac Type Severity Reaction Status Date / Time Sulfa (Sulfonamide Allergy Unknown Verified 03/20/24 16:44 Antibiotics) Exam Vital Signs Temp Pulse Resp BP Pulse Ox O2 Del Method O2 Flow Rate 98 F 100 16 144/81 H 96 Room Air 10 03/20/24 18:11 03/20/24 18:11 03/20/24 18:11 03/20/24 18:11 03/20/24 18:11 03/20/24 16:32 03/20/24 17:33 Vital signs blood pressure 144/81, pulse 100 Narrative Exam Patient is alert. Constantly moving both upper and lower extremities. She says this is normal for her and when I talked to her daughter this has been going on for a number of years. Daughter attributes this to her chronic methamphetamine use which she stopped in June of this year. Moving shoulders elbows wrist hands and fingers bilaterally without pain and without any restriction Noted to constantly being moving upper extremities and both lower extremities this is secondary to Thank movement disorder. No swelling or effusion of either right or left knee. No swelling ecchymosis of either right or left ankle with good active flexion extension of toes and feet bilaterally Results - Ortho Labs 03/20/24 16:48 03/20/24 16:48 Labs: Short CBC 03/20/24 Range/Units 16:48 WBC 16.9 H (3.6-11.0) Thou/mm3 Hgb 12.8 (12.0-16.0) g/dL Hct 37.9 (36.0-46.0) % Plt Count 321 (140-440) Thou/mm3 BMP 03/20/24 16:48 Sodium 136 Potassium 3.2 L Chloride 103 Carbon Dioxide 27.0 BUN 21 Creatinine 0.9 Glucose 105 Calcium 9.4 Cardiac Enzymes 03/20/24 Range/Units 16:48 Total Creatine Kinase 53 (34-171) U/L Troponin I < 0.020 (0.0-0.045) ng/mL Liver Function 03/20/24 Range/Units 16:48 Total Bilirubin 0.5 (0.3-1.2) mg/dL AST 19 (0-34) U/L ALT 14 (10-49) U/L Alkaline Phosphatase 70 (46-116) U/L Albumin 4.2 (3.4-4.8) gm/dL Potassium 3.2 Assessment & Plan Additional Assessment Additional comments: Patient has impacted left femoral neck fracture. It is in good position. Does have COPD secondary to chronic marijuana smoking. 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 Presently smoking marijuana. Plan Needs cardiology consult. Would have dissipate surgery Sunday morning if everything checks out okay tomorrow. I called her daughter Taryn Galarza and told her that her mother would need surgery. Her mother lives with friends and they will not be in a position of caring for her postoperatively. I told her daughter that she would need postoperative care in a detention facility. Her daughter works in our rehab center at [facility]
[2024-03-20 19:29] LABS: Partial Thromboplastin Time 27.3 Seconds (22.0-36.0); Prothrombin Time 10.9 Seconds (9.0-12.2)
[2024-03-20 19:31] LABS: Alcohol, Blood Medical < 3.0 mg/dL (0-10.0); Lipase 28 U/L (12-53)
[2024-03-20 20:03] LABS: Collection Type, Urine Clean Catch
[2024-03-20 20:13] LABS: Amphetamine/Methamp Scrn,U Positive (Negative); Barbiturate Screen,Urine Negative (Negative); Benzodiazepines Screen,Urine Negative (Negative); Benzoylecgonine Screen, Ur Negative (Negative); Fentanyl Screen,Urine Negative (Negative); Opiate Screen,Urine Positive (Negative); THC Screen,Urine Positive (Negative)
[2024-03-20 20:25] LABS: Bacteria,Urine Rare; Bilirubin,Urine Negative (Negative); Blood,Urine Negative (Negative); Clarity,Urine Turbid (Clear/Hazy); Color,Urine Yellow (Lt Yel-Yel); Glucose, Urine Negative (Negative); Ketones,Urine Negative (Negative); Leukocyte Esterase,Urine Negative (Negative); Nitrite,Urine Positive (Negative); Protein,Urine Negative (Neg - Trace); RBC,Urine 2 /hpf (0-3); Specific Gravity,Urine 1.027 (1.001-1.035); Squamous Epithelial Cell,Urine < 1 /hpf (0-5); Urobilinogen,Urine Negative mg/dL (0.0-1.0); WBC,Urine 4 /hpf (0-5)
[2024-03-20 20:26] LABS: Culture Indicated,Urine Yes
--- NOTE | 2024-03-20 20:48 | XR_ITS ---
Examination: AP chest single view Technique one AP portable semiupright chest single view Exam date and time: March 20, 20242053 hrs. Comparison May 03, 2021 Indications: Coughing today. Findings: Normal heart size Marked abnormal interstitial disease throughout the lungs with prominent central vascular engorgement Old fracture right clavicle Impression: Findings most consistent with heart failure with pulmonary edema, in spite of the normal heart size, clinical correlation advised
[2024-03-20] MEDS: cefTRIAXone/D5w 1gm IV premix 50 ML IV (21:04)
[2024-03-20 21:26] LABS: B-Type Natriuretic Peptide 68 pg/mL (0-100)
[2024-03-20 21:37] LABS: LDH (Lactate Dehydrogenase) 289 U/L (120-246); Magnesium 1.8 mg/dL (1.6-2.6); Phosphorous 3.3 mg/dL (2.4-5.1)
--- NOTE | 2024-03-20 21:38 | PC.NURSE ---
Pt is extreamly restless. Since my arrival, pt has been very restless, thrashing about in bed. is aware.
[2024-03-20 21:57] LABS: Procalcitonin < 0.04 ng/ml (0.0-0.49)
[2024-03-20] MEDS: MORPHINE SULF INJ 10 MG/ML VIAL 2 MG IVP (22:04)
[2024-03-20] MEDS: LORazepam 2 MG/ML VIAL 1 MG IVP (22:05)
[2024-03-20] MEDS: DiphenhydrAMINE INJ 50 MG/ML VIAL 25 MG IVP (22:12)
--- NOTE | 2024-03-20 22:15 | EDNOTE_ITS ---
Emergency Room Addendum Addendum Narrative: 1800: Care assumed from Dr. Gibbons. Past medical, surgical, social and family history reviewed. Vitals and home medications reviewed. Results and treatment plan discussed. I will assume the care of the patient at this time. Patient is a 68-year-old female who presented to the emergency department via EMS after ground-level fall at home. Patient states that her feet became tangled in the tubing from an oxygen tank and she tripped and fell off of a porch. Patient states she fell onto her left side and had immediate severe left hip pain. She was able to stand and walk although had severe pain to the left hip area. Patient denies striking head, LOC, symptoms before the stumble and fall such as lightheadedness, dizziness, chest pain. She denies neck pain, focal neurologic complaints. Patient denies abdominal pain, entire back pain, upper extremities pain, right lower extremity pain. Patient denies prior diarrhea, nausea, vomiting, diaphoresis. And route the patient received a gram of Ofirmev but arrived in 10/10 pain. Patient arrived with mild hypertension and a pulse ox of she was given 4 mg of morphine. When I arrived she stated that she was very much still in pain. She had severe choreoathetotic movements and states that she has a significant diagnosis secondary to taking psychiatric medications over a long number of years. She states she is on some kind of medicine for that but she does not remember the name. Patient stating she is in a lot of pain. I ordered 1 of Dilaudid, 0.5 Ativan, 4 of Zofran. Patient taken to CT EKG 18:30 sinus tachycardia at 103, right axis deviation, T wave inversions in II, III and aVF, no ectopy, no STEMI, according to my interpretation. COURSE: 193: Patient was brought over to the CT suite but her choreoathetotic movements were so severe that they were unable to perform the study. I was then informed by nursing staff that just prior to my arrival the patient was resting comfortably and playing on her phone. They did not note any movement disorder whatsoever. When I spoke to the patient about this and asked her why she was moving so severely now but was not just prior to my arrival she stated that she been moving like this since she was a kid . 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 I let her know that we would not be medicating her further with Ativan or narcotics as she has had a large dose. I asked her if she thought she can hold still for 60 seconds in order to get the CT of her chest to rule out a very serious lung problem and she stated that she thought she would be able to do so. Urine still has not been collected but I spoke with the nurse and asked him to use straight cath and send the urine TRACY. Will try to obtain the CT again and if unsuccessful will admit the patient 2046: Patient went to the CT suite again. I called the ophthalmic technician apprentice and he states that the patient was moving but they were able to get a suboptimal CT. Patient's labs are back now. She is positive for methamphetamine. This explains her extreme choreoathetotic movements. Unfortunately a chest x-ray was never ordered and I have added that. I doubt the CT chest is going to be of high enough quality for us to rule out infiltrate. Patient does have a urinary tract infection. Patient's leukocytosis and her initial heart rate of 96 represent 2 SIRS criteria. With her infection patient meets simple sepsis criteria. I spoke with Dr. Bergman and his residents who were here in the emergency department. We discussed patient's case in detail and they kindly agreed to admit the patient to the hospital. CTA chest is still pending. ------- RADIOLOGY RESULTS: [place] [facility] Report Signed Patient: MASOUD EDGE [facility]. Record#: [id number] Birthdate: 1955 Age/Sex: 68 / F Location: [facility] Attending Dr: Ordering Physician: Kiran Headley MD Date of Service: 03/20/24 Procedure(s): XR chest 1V portable Accession Number(s): [id number] cc: Richi Abreu MD; Pietro Araiza MD; Kiran Headley MD~ Examination: AP chest single view Technique one AP portable semiupright chest single view Exam date and time: March 20, 2024 2054 hrs. Comparison May 03, 2021 Indications: Coughing today. Findings: Normal heart size Marked abnormal interstitial disease throughout the lungs with prominent central vascular engorgement Old fracture right clavicle Impression: Findings most consistent with heart failure with pulmonary edema, in spite of the normal heart size, clinical correlation advised Dictated By: Pietro Araiza MD Signed By: <Electronically signed by Pietro Araiza MD in OV> 03/20/242136 ------ [place] [facility] Report Signed Patient: MASOUD EDGE. Record#: [id number] Birthdate: 1955 Age/Sex: 68 / F [facility] Attending Dr: Ordering Physician: Shan Gibbons MD Date of Service: 03/20/24 Procedure(s): CT pelvis wo con Accession Number(s): [id number] cc: Richi Abreu MD; Shan Gibbons MD; Pietro Araiza MD~ Examination: CT pelvis without intravenous contrast. 2-D sagittal and coronal reconstructions. Date and time of exam:March 18, 20242036 hrs. Indications: Patient fell today with injury to the left hip, left hip pain CTDI: vol (mGy) :11.6 DLP: (mGycm) : 428 Technique: Multiple 3 mm axial sections of the pelvis have been obtained with the 64 slice high resolution scanner. 2-D sagittal and coronal reconstructions. Low dose protocols were performed. One or more of the following dose reduction techniques were used; automated exposure control, adjustment of the mA and/or KV according to patient size, use of iterative reconstruction technique. Findings: Prominent osteopenia All of these images are severely degraded by patient motion The plain films left hip examination demonstrates an impacted left subcapital hip fracture Impression: The CT examination is essentially a nondiagnostic study Dictated By: Pietro Araiza MD Signed By: <Electronically signed by Pietro Araiza MD in OV> 03/20/242121 CRITICAL CARE TIME: 35 Minutes The high probability of sudden, clinically significant deterioration in the patient?s condition required the highest level of my preparedness to intervene urgently. The services I provided to this patient were to treat and/or prevent clinically significant deterioration. Services included the following: chart data review, reviewing nursing notes and/or old charts, documentation time, continuous improvement consultant collaboration regarding findings and treatment options, medication orders and management, direct patient care, vital sign assessments and ordering, interpreting and reviewing diagnostic studies and lab tests. Aggregate critical care time includes only time during which I was engaged in work directly related to the patient?s care, as described above, whether at bedside or elsewhere in the Emergency Department. It did not include time spent performing other reported procedures or the services of residents, students, nurses or physician assistants.
[2024-03-20] MEDS: SODIUM CHLORIDE 0.9% 1000 ML 1,000 ML 75 ML IV (22:21)
--- NOTE | 2024-03-20 22:29 | ESHP_ITS ---
Documentation for date of: 03/20/24 [facility] History of Present Illness History of present illness: The patient is a 68-year-old female with a history of methamphetamine use, hx of Asthma who presented to the emergency department via EMS after a ground-level fall at home. Per ED sign out the patient reports tripping on tubing and falling off a porch onto her left side, resulting in immediate severe left hip pain. Despite the injury, she was able to stand and walk but has since experienced severe, constant pain rated at 10/10. She denied head trauma, loss of consciousness, dizziness, lightheadedness, chest pain, abdominal pain, back pain, or focal neurological deficits. She also denied any associated symptoms such as nausea, vomiting, or diarrhea. The patient has a psychiatric history and has been on long-term antipsychotic medication, though she was unable to provide specific details. 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 upon my evaluation, patient was restless having choreiform movement, was nor able to focus and answer to questions.however she is AxOx4 On Presentation: she was hypertensive with BP of 178/85, Oxygen Saturation: 86% on room air, improved to 92% on 10 L via oxygen mask however she was moving a lot and O2 reading was not accurate. Significant Findings:Elevated leukocytosis: WBC 16.9 (left shift),Hypokalemia: Potassium 3.2, Urinalysis: Positive for urinary tract infection, Urine Toxicology: Positive for methamphetamine and marijuana. X-ray of the hip/pelvis: Acute impacted left subcapital hip fracture Orthopedic Surgery (Dr. Lr): Recommended cardiology consultation for surgical clearance. Surgery is planned for Sunday if the patient remains monisha, Of note Dr. Lr discussed the case and treatment options with the patient?s daughter Patient will be admitted for acute impacted left subcapital hip fracture, Sepsis and UtI treatment and management. Review of Systems Review of Systems ROS Unobtainable: unobtainable due to mental status and unobtainable due to medical condition Exam Vital Signs Temp Pulse Resp BP Pulse Ox O2 Del Method O2 Flow Rate 98 F 82 20 150/96 H 93 L Oxy Mask 4 03/20/24 18:11 03/20/24 21:34 03/20/24 21:34 03/20/24 21:34 03/20/24 21:34 03/20/24 21:34 03/20/24 21:34 Narrative Exam GENERAL: no acute distress, AAO x4, well nourished.restless, anable to focus, complaining of sever pain and involuntary movement. HEENT: Head AT/ NC. Mucous membranes dry NECK: Supple, no lymphadenopathy, no carotid bruits. CARDIOVASCULAR: No m/r/g. 1+ pitting edema of bilateral LEs. RESPIRATORY: mild wheezing,however limited due to patient was not cooperative with PE GASTROINTESTINAL: Abdomen soft, non tender no palpable masses. Bowel sounds present in all 4 quadrants. MUSCULOSKELETAL:? No cyanosis or edema, no visible joint swelling.sever pain and tenderness onlateral aspect of the Left hip NEUROLOGICAL: was not able to perform, no focal deficit noted INTEGUMENTARY: No obvious rashes, no jaundice, normal turgor. Results: Labs 03/20/24 16:48 03/20/24 16:48 Labs: Short CBC 03/20/24 Range/Units 16:48 WBC 16.9 H (3.6-11.0) Thou/mm3 Hgb 12.8 (12.0-16.0) g/dL Hct 37.9 (36.0-46.0) % Plt Count 321 (140-440) Thou/mm3 BMP 03/20/24 16:48 Sodium 136 Potassium 3.2 L Chloride 103 Carbon Dioxide 27.0 BUN 21 Creatinine 0.9 Glucose 105 Calcium 9.4 Cardiac Enzymes 03/20/24 Range/Units 16:48 Total Creatine Kinase 53 (34-171) U/L Troponin I < 0.020 (0.0-0.045) ng/mL Liver Function 03/20/24 Range/Units 16:48 Total Bilirubin 0.5 (0.3-1.2) mg/dL AST 19 (0-34) U/L ALT 14 (10-49) U/L Alkaline Phosphatase 70 (46-116) U/L Albumin 4.2 (3.4-4.8) gm/dL Urine 03/20/24 Range/Units 19:42 Urine Color Yellow (Lt Yel-Yel) Urine Clarity Turbid A (Clear/Hazy) Urine pH 6.0 (5.0-7.0) Ur Specific [place] 1.027 (1.001-1.035) Urine Protein Negative (Neg - Trace) Urine Glucose (UA) Negative (Negative) Quality Measures Quality Measures VTE prophylaxis Advance care planning discussed with:: patient Medications Home Medications and Allergies Home Medications ?Medication ?Instructions ?Recorded ?Confirmed ?Type amlodipine 5 mg tablet 5 mg PO QDAY 09/30/19 08/30/20 History citalopram 40 mg tablet 40 mg PO QDAY 09/30/19 08/30/20 History montelukast 10 mg tablet 10 mg PO QPM 09/30/19 08/30/20 History omeprazole 20 mg tablet,delayed 20 mg PO QDAY 09/30/19 08/30/20 History release oxybutynin chloride 5 mg tablet 5 mg PO TID 09/30/19 08/30/20 History hydrochlorothiazide 12.5 mg capsule 12.5 mg PO QDAY 07/26/20 08/30/20 History quetiapine 100 mg tablet (Seroquel) 100 mg PO HS 07/26/20 08/30/20 History duloxetine 30 mg capsule,delayed 30 mg PO BID 08/30/20 08/30/20 History release gabapentin 300 mg capsule 300 mg PO BID 08/30/20 08/30/20 History valsartan 320 1 tab PO QDAY 08/30/20 08/30/20 History mg-hydrochlorothiazide 25 mg tablet Allergies Allergy/AdvReac Type Severity Reaction Status Date / Time Sulfa (Sulfonamide Allergy Unknown Verified 03/20/24 16:44 Antibiotics) Visit Medications Acetaminophen (Acetaminophen 325 Mg Tablet) 650 mg PO Q6H PRN PRN Reason: PAIN OR FEVER > 101 Stop: 04/19/24 22:10 Albuterol/Ipratropium (Albuterol/Ipratropium (Duoneb) Rt Pooja 3 Ml Nebu) 3 ml INH Q4H PRN PRN Reason: SHORTNESS OF BREATH OR WHEEZE Stop: 04/19/24 22:14 Sodium Chloride (Ns) 1,000 mls @ 75 mls/hr IV .[id number] [facility] Stop: 03/21/24 11:34 Last Admin: 03/20/24 22:21 Dose: 75 mls/hr Ceftriaxone Sodium/Dextrose (Rocephin/D5w 1gm Iv Premix) 50 mls @ 100 mls/hr IV QDAY [facility] Stop: 03/28/24 08:59 Morphine Sulfate (Morphine Sulf Inj 10 Mg/Ml Vial) 2 mg IVP Q4H PRN PRN Reason: PAIN SCALE 7-10 (Severe Stop: 03/25/24 22:10 Ondansetron HCl (Ondansetron Inj 2 Mg/Ml Inj 2 Ml) 4 mg IV Q6H PRN; Protocol PRN Reason: NAUSEA OR VOMITING Stop: 04/19/24 22:10 Oxycodone/Acetaminophen (Oxycodone/Apap 5/325 Tablet) 1 tab PO Q6H PRN PRN Reason: PAIN SCALE 4-6 (Moderate Stop: 03/25/24 22:10 Pantoprazole Sodium (Pantoprazole 40 Mg Tablet) 40 mg PO QDAY WINNIE Stop: 04/20/24 08:59 Discontinued Medications Albuterol/Ipratropium (Albuterol/Ipratropium (Duoneb) Rt Pooja 3 Ml Nebu) 3 ml INH X1 ONE Stop: 03/20/24 16:30 Last Admin: 03/20/24 17:22 Dose: 3 ml Diphenhydramine HCl (Diphenhydramine Inj 50 Mg/Ml Vial) 25 mg IVP X1 ONE Stop: 03/20/24 22:09 Last Admin: 03/20/24 22:12 Dose: 25 mg Hydromorphone HCl (Hydromorphone Inj 2 Mg/Ml Vial) 1 mg IVP X1 ONE Stop: 03/20/24 18:30 Last Admin: 03/20/24 18:36 Dose: 1 mg Sodium Chloride (Ns) 500 mls @ 999 mls/hr IV .Q31M ONE Stop: 03/20/24 19:06 Last Infusion: 03/20/24 21:02 Dose: Infused Ceftriaxone Sodium/Dextrose (Rocephin/D5w 1gm Iv Premix) 50 mls @ 100 mls/hr IV X1 ONE Stop: 03/20/24 21:07 Last Infusion: 03/20/24 21:52 Dose: Infused Lorazepam (Lorazepam 2 Mg/Ml Vial) 0.5 mg IVP X1 ONE Stop: 03/20/24 18:30 Last Admin: 03/20/24 18:37 Dose: 0.5 mg Lorazepam (Lorazepam 2 Mg/Ml Vial) 1 mg IVP X1 ONE Stop: 03/20/24 21:58 Last Admin: 03/20/24 22:05 Dose: 1 mg Morphine Sulfate (Morphine Sulf Inj 10 Mg/Ml Vial) 4 mg IV X1 ONE Stop: 03/20/24 17:16 Last Admin: 03/20/24 17:21 Dose: 4 mg Morphine Sulfate (Morphine Sulf Inj 10 Mg/Ml Vial) 2 mg IVP X1 ONE Stop: 03/20/24 21:56 Last Admin: 03/20/24 22:04 Dose: 2 mg Ondansetron HCl (Ondansetron Inj 2 Mg/Ml Inj 2 Ml) 4 mg IV X1 ONE; Protocol Stop: 03/20/24 18:30 Last Admin: 03/20/24 18:44 Dose: 4 mg Assessment & Plan Plan 68-year-old female with past medical history of asthma and methamphetamine use, history of movement disorder on multiple antipsychotic medication pe patient was admitted for acute impacted left subcapital hip fracture requiring surgical intervention as well as for UTI treatment and management. #Acute impacted left subcapital hip fracture status post mechanical fall #History of multiple falls Patient stated that she had a ground-level fall at home and experienced severe left hip pain after rice X-ray of hip/pelvis revealed acute impacted left subcapital hip fracture -Admit to [facility] -Hold chemical anticoagulation -IVF and pain management -cardio consult for surgical clearance -Ortho is on board, plan to do surgery on Sunday -Consider PT after surgery -Continue monitor signs symptoms #AHRF 2/2 possible asthma exacerbation vs PNA vs CHF exacerbation after a couple hours of admission patient started desaturating, also she was very restless was not able to keep oxy mask on, ABG was done wich showed hypoxia with pO2 of 59 given the X ray findings patient was given -lasix 40 x1, start lasix 40 IVP qday start day (03/21- -solumedrol 125 -prednisone 40 qday -duobed treatment Winnie -was given Ativan so she can be placed on Oxy mask 15 , and if needed on hi flow -will repeat ABG and CXR -will follow with the results, future plan as per findings. -at 4:07 ABG: pO2 110, PH 7.38, pCo2 52 -repeat cxr showed worsening vasular congestion and probable PNA , final read still pending -will broaden abx to zosyn -currently she saturates 99 on 6L oxy mask -will follow with Echo -pt was transferred to telemetry for close abservation #Sepsis 2/2 UTI and/or ?PNA #SIRS positive 2 out of 4 #UTI UA + UTI, in ED patient recieved rocephin and IVF per sepsis protocol -Follows urine culture -follow blood culture -antibiotics -Dorsey #Choreiform movement Patient stated that she has been having this movement for a long time and endorses that this is side effect of the antipsychotic medication that he is taking at home Patient is not aware, and does not have a list of home medication However U tox is positive for methamphetamine which can also cause choreiform movement In ED patient was given Ativan, Benadryl which slightly revealed the symptoms DDx would include neurological disorder such as [place]'s disease, [place] chorea, Zoltan's disease versus metabolic or toxic causes such as hypothyroidism, medication induced, toxic exposure. in ED patient was given ativan , benadril, haldol. She is still restless -Close review home medication -further testing once patient is more stable # hypokalemia replaced -monitor , replace PRN #Methamphetamine use U tox positive -Consider social media specialist Disposition:tele DVT prophylaxis: scds, pending surgery GI prophylaxis: PPI Diet: NPO, currently patient is restless Lines: PIV CODE STATUS:Full code Patient care was discussed with attending physician Dr. Pacheco Vera MD PGY-2 I have carefully reviewed this document. Due to imperfections in the voice software, there could be grammatical errors including phonetic/typographic errors. This in no way compromises the medical care the patient is receiving Attending Provider Attestation/Addendum I reviewed labs, imaging, EKG, home medications and prior available records. Face to face evaluation was performed by me. I have personally examined the patient and discussed assessment and plan with the IM team. I reviewed the resident note and agree with the plan with exceptions as below. 68-year-old female with history of hypertension and polysubstance abuse who presented with a chief complaint of ground-level fall. She was found to have left hip impacted subcapital fracture. Left hip subcapital impacted fracture: In the setting of ground-level fall. Consulted orthopedic surgery: Will plan for OR. Consulted cardiology for clearance. Management of pain as needed. Acute hypoxic respiratory failure: Requiring oxygen via nasal cannula/oxygen mask. Possibly due to pulmonary edema from new onset CHF in the setting of methamphetamine use. Started IV diuresis. Monitor I's and O's. Ordered echocardiogram. Cardiology consulted. New onset CHF: Management as above. Methamphetamine abuse: Counseled the patient regarding the importance of stopping methamphetamine.
[2024-03-21] VITALS (19 sets, daily range): BP systolic 119–179; BP diastolic 67–85; PULSE 73–97; RESP 17–24; TEMP 36.1–37.3; O2SAT 94–100; BMI 31.7
--- NOTE | 2024-03-21 00:26 | ECHO_ITS ---
Transthoracic Echo Report Ht (in): 64 Wt (lb): 181 Exam Location: Portable Status: Inpatient Dramatic Coach: Elizabeth Pinon Indications: Procedure Performed: BP: 122 / 67 HR: 90 Rhythm: Sinus Technical Quality: Fair MEASUREMENTS (Male / Female) Normal Values 2D ECHO LV Diastolic Diameter PLAX 4.2 cm 4.2 - 5.9 / 3.9 - 5.3 cm LV Systolic Diameter PLAX 3.1 cm IVS Diastolic Thickness 0.8 cm 0.6 - 1.0 / 0.6 - 0.9 cm LVPW Diastolic Thickness 0.9 cm 0.6 - 1.0 / 0.6 - 0.9 cm LV Relative Wall Thickness 0.4 LVOT Diameter 1.6 cm LA Volume Index 23.9 cm?/m? 16 - 28 cm?/m? Ascending Aorta Diameter 2.5 cm M-MODE Aortic Root Diameter MM 2.7 cm LA Systolic Diameter MM 3.5 cm LA Ao Ratio MM 1.3 AV Cusp Separation MM 2.2 cm DOPPLER AV Peak Velocity 135.0 cm/s AV Peak Gradient 7.3 mmHg AV Mean Gradient 4.0 mmHg AV Velocity Time Integral 27.9 cm LVOT Peak Velocity 92.4 cm/s LVOT Peak Gradient 3.4 mmHg LVOT Velocity Time Integral 20.2 cm LVOT Cardiac Index 1870.5 cm?/min?m? AV Area Cont Eq vti 1.5 cm? AV Area Cont Eq pk 1.4 cm? MV Peak Velocity 86.1 cm/s MV Peak Gradient 3.0 mmHg MV Mean Velocity 55.4 cm/s MV Mean Gradient 1.0 mmHg MV Area PHT 4.6 cm? Mitral E Point Velocity 81.5 cm/s Mitral A Point Velocity 66.9 cm/s Mitral E to A Ratio 1.2 LV E' Lateral Velocity 12.7 cm/s Mitral E to LV E' Lateral Ratio 6.4 LV E' Septal Velocity 5.7 cm/s Mitral E to LV E' Septal Ratio 14.4 FINDINGS Left Ventricle Normal left ventricular size, wall thickness, systolic function. Mid anterior septal bounce. The ej ection fraction is visually estimated at 55%. Right Ventricle The right ventricle is normal in size and systolic function. Left Atrium The left atrium is normal by two-dimensional, color flow and Doppler imaging with no structural abnormalities, no thrombus formation present. Right Atrium The right atrium is normal by two-dimensional imaging, color flow and Doppler imaging with no struct ural abnormalities, no thrombus formation present. Atrial Septum The interatrial septum appears normal with no evidence of a shunt. Aorta The aorta is normal by two-dimensional, color flow and Doppler interrogation. Mitral Valve The mitral valve is normal by two-dimensional, color flow and Doppler interrogation. There is trace mitral valve regurgitation. Aortic Valve The aortic valve is trileaflet and normal by two-dimensional, color flow and Doppler interrogation. There is no significant aortic valve regurgitation. Tricuspid Valve The tricuspid valve is normal by two-dimensional, color flow and Doppler interrogation. There is tra ce tricuspid valve regurgitation. Pulmonic Valve The pulmonic valve is not well visualized. There is no significant pulmonic valve regurgitation. Vessels The pulmonary artery appears normal. The inferior vena cava pulmonary and hepatic veins appear shea l. Pericardium The pericardium is normal by two-dimensional imaging. There is no significant pericardial effusion. CONCLUSIONS Normal LV size and function. Mid anterior septal bounce. Estimated EF 55% Normal RV size and function. Trace MR, TR. Saige Smiley (Electronically Signed) Final Date: 23 March 2024 10:05
[2024-03-21 01:08] LABS: Base Excess 2 (-3-3); HCO3 28 mEq/L (20-26); Inspired O2, VO2 Liters 6 L/min; O2 Saturation 90 % (91-98); PCO2 48 mmHg (32.0-48.0); pH, Arterial 7.38 (7.35-7.45)
[2024-03-21 01:13] LABS: Allen Test Performed/OK; Puncture Site Right Radial
[2024-03-21] MEDS: HALOPERIDOL LACT INJ 5 MG/ML VIAL 2 MG IV (01:16)
[2024-03-21] MEDS: FUROSEMIDE INJ 10 MG/ML 4ML VIAL 40 MG IVP ×2 (01:17→08:49)
[2024-03-21] MEDS: MORPHINE SULF INJ 10 MG/ML VIAL 2 MG IVP (01:21)
[2024-03-21] MEDS: ONDANSETRON INJ 2 MG/ML INJ 2 ML 4 MG IV (01:22)
[2024-03-21 01:23] LABS: PO2 59 mmHg (83-108)
[2024-03-21] MEDS: Magnesium Sulfate 2 GM Ivpb 2 GM/50 ML BAG IV (01:25)
--- NOTE | 2024-03-21 01:30 | PC.NURSE ---
pt has been very restless thrashing about in bed since my arrival. mumbling and moaning. Pt responds imediatly to verbal commands, however her attention span has been very short. After several attempts at calming her by giveing her pain meds and ativan she continued the very restless behavior. When pt was given haldol, morphine, and ativan she finally was able to relax. was able to keep oxy mask oon at 4L. sats went up to 97%. and pt was able to fall asleep.
--- NOTE | 2024-03-21 02:19 | PC.NURSE ---
REPORT GIVEN TO TATIANNA NGUYỄN AT [facility].
--- NOTE | 2024-03-21 02:36 | PC.NURSE ---
KL02 sats throught the evening have been unreliable due to constant moveing about.
--- NOTE | 2024-03-21 03:34 | XR_ITS ---
Examination: AP chest single view Technique: AP portable semiupright chest single view Exam date and time: March 21, 2020 4053 hrs. Comparison March 20, 2024 Indications: Hypoxia today. Findings: Mild enlargement cardiac contour Extensive bilateral lung opacity Prominent osteopenia with old fracture right clavicle Impression: Worsening extensive bilateral pneumonia and possibly pulmonary edema
[2024-03-21 03:44] LABS: Base Excess 4 (-3-3); HCO3 31 mEq/L (20-26); Inspired Oxygen, FIO2 100 %; O2 Saturation 99 % (91-98); PCO2 52 mmHg (32.0-48.0); PO2 110 mmHg (83-108); pH, Arterial 7.38 (7.35-7.45)
[2024-03-21 03:46] LABS: Allen Test Performed/OK; Puncture Site Right Radial
[2024-03-21] MEDS: LORazepam 2 MG/ML VIAL IVP (03:50)
[2024-03-21] MEDS: ALBUTEROL/IPRATROPIUM (Duoneb) RT SOL 3 ML NEBU INH ×5 (03:57→22:08)
[2024-03-21] MEDS: PIPER/TAZO 3.375 GM 3.375 GM/50 ML BAG IV (04:12)
[2024-03-21] MEDS: POTASSIUM CHL 10 mEq IVPB 10 MEQ/100 ML BAG 75 MEQ IV ×4 (04:29→08:48)
[2024-03-21 05:03] LABS: Influenza A Ag Negative; Influenza B Ag Negative
[2024-03-21 05:23] LABS: COVID-19 Antigen (In-House) Negative (Negative)
[2024-03-21 06:55] LABS: Basophils # (Auto) 0.1 Thou/mm3 (0.0-0.2); Basophils % (Auto) 1 % (0-2.5); Eosinophils # (Auto) 0.2 Thou/mm3 (0.0-0.5); Eosinophils % (Auto) 2 % (0-10); Hematocrit 37.8 % (36.0-46.0); Hemoglobin 12.5 g/dL (12.0-16.0); Immature Granulocytes % (Auto) 1 % (0-0); Immature Granulocytes Auto 0.08 Thou/mm3 (0.00-0.00); Lymphocytes # (Auto) 0.4 Thou/mm3 (1.0-4.8); Lymphocytes % (Auto) 3 % (10-50); Mean Corpuscular HGB Conc 33.1 g/dl (31.0-37.0); Mean Corpuscular Volume 91 fL (80-100); Monocytes # (Auto) 0.5 Thou/mm3 (0.0-0.8); Monocytes % (Auto) 3 % (0-12); Neutrophils % (Auto) 92 % (37-80); Nucleated Red Blood Cell % 0 /100 WBC (0); Platelet Count 274 Thou/mm3 (140-440); RDW Standard Deviation 43.6 fL (36.4-46.3); Red Blood Count 4.17 Miln/mm3 (4.00-5.20); White Blood Count 16.4 Thou/mm3 (3.6-11.0)
[2024-03-21 07:15] LABS: Alanine Aminotransferase 13 U/L (10-49); Albumin, Serum 4.2 gm/dL (3.4-4.8); Albumin/Globulin Ratio 1.6 (1.2-2.2); Alkaline Phosphatase 68 U/L (46-116); Anion Gap 7 (7-16); Aspartate Amino Transferase 20 U/L (0-34); BUN/Creatinine Ratio 17 Ratio (12-20); Bilirubin,Total 0.9 mg/dL (0.3-1.2); Blood Urea Nitrogen 17 mg/dL (9-23); Calcium 9.1 mg/dL (8.3-10.6); Calcium (Corrected) 9.1 mg/dL (8.5-10.1); Carbon Dioxide 28.9 mMol/L (20.0-31.0); Cardiac Risk Estimate 2.7 RATIO (3.7-5.6); Chloride 100 mMol/L (98-107); Cholesterol 189 mg/dL (132-200); Estimated Creatinine Clearance 55.7 mL/min (>60); Globulin 2.6 gm/dL (2.3-3.5); Glucose 129 mg/dL (74-106); HDL Cholesterol 69 mg/dL (40-60); LDL Cholesterol,Calculated 110 mg/dL (0-130); Magnesium 1.9 mg/dL (1.6-2.6); Osmolality,Calculated 275 (275-295); Phosphorous 2.9 mg/dL (2.4-5.1); Potassium 3.4 mMol/L (3.4-5.1); Sodium 136 mMol/L (136-145); Total Protein 6.8 gm/dL (5.7-8.2); Triglycerides 49 mg/dL (30-150); eGFR > 60 See Note
[2024-03-21 07:32] LABS: Thyroid Stimulating Hormone 1.69 uIU/mL (0.55-4.78)
[2024-03-21] MEDS: PANTOPRAZOLE 40 MG TABLET PO (08:49)
[2024-03-21] MEDS: predniSONE 20 MG TABLET 40 MG PO (08:49)
--- NOTE | 2024-03-21 10:20 | PC.SS ---
Patient Luz Finnegan is a 68 Year old female admitted for Fall, Hip Fracture. SS spoke to patient's daughter Taryn Galarza via phone, she was able to confirm demographic information and reported patient lives at home with roommates. Taryn reports she is patients surrogate decision maker [phone]. She reports that prior to admission patient was ambulating with a Rollator walker and cane and was able to drive herself to her PCP appointments. Patient's PCP is Richi Abreu. At time of discharge Taryn reports patient will need SNF for PT. SS submitted SNF inquiry through [facility] plat form. First choice of facility is [facility]. SS will contact [facility] and see if they are able to accept patient. Discharge Plan: SNF Next of Kin: Daughter,Taryn Galarza [phone] PCP: Richi Abreu
--- NOTE | 2024-03-21 10:36 | XR_ITS ---
Examination: CT brain head without contrast. 2-D sagittal coronal reconstructions Date and time of exam:March 21, 2024 11:00 AM Comparison November 26, 2023 Indications: Patient fell today with injury to the head, head pain CTDI: vol (mGy):46.7 DLP: (mGycm):1043 Technique: Multiple CT axial sections of the brain have been obtained, 5 mm slice thickness. Contrast has not been administered. 2-D sagittal, coronal reconstructions have been obtained Low dose protocols were performed. One or more of the following dose reduction techniques were used; automated exposure control, adjustment of the mA and/or KV according to patient size, use of iterative reconstruction technique. Findings: No significant ventricular enlargement. 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 No mass effect or midline shift Basal cisterns are not remarkable. Fourth ventricle is midline. Cranial vault intact. Significant polypoid sphenoid sinus disease Impression: Negative for acute hemorrhage, mass effect or midline shift
[2024-03-21 10:40] LABS: Base Excess, Venous 5 (-3-3); O2 Saturation, Venous 97 % (96-97); PCO2, Venous 41 mmHg (36-56); PO2, Venous 87 mmHg (15-58); pH, Venous 7.47 (7.33-7.66)
--- NOTE | 2024-03-21 11:44 | PC.SS ---
SS was contacted by Taryn and she informed SS that she spoke to Clara from [facility] and patient's insurance is not contracted with [facility]. only facility in [place] that has accepted patient is [facility]. Patient's daughter agreeable to have patient discharge to [facility]. SS sent message through ralali to Karla from [facility]. SS will complete PASSR and sent to [facility].
[2024-03-21] MEDS: cefTRIAXone/D5w 1gm IV premix 50 ML IV (12:39)
[2024-03-21] MEDS: CITALOPRAM 20 MG TABLET 40 MG PO (12:39)
--- NOTE | 2024-03-21 13:10 | PD.RESPRO ---
Documentation for date of: 03/21/24 Subjective Subjective Interval history: Patient was seen at bedside this morning. Patient was very somnolent in the morning likely medication induced, but was able to respond to questions and follow commands. She was AO x 3. Did notice some abnormal movements in patient's extremities as well as face. She was complaining of some pain in her left hip. Orthopedic surgeon stated that they needed cardiac clearance for possible surgery on Sunday, cardiology was consulted and we are pending cardiac clearance as well as further orthopedic surgeons recommendations. Exam Vital Signs Temp Pulse Resp BP Pulse Ox O2 Del Method O2 Flow Rate 97.2 F 79 18 171/80 H 95 Oxy Mask 4 03/21/24 12:00 03/21/24 12:00 03/21/24 12:00 03/21/24 12:00 03/21/24 12:00 03/21/24 12:00 03/21/24 12:00 Narrative Exam General: A/O x3, somnolent Eyes: PERRL, EOMI. Anicteric, patient had eyes closed throughout assessment. Ears: No ear pain, no ear discharge, Hearing grossly intact. Nose: No nasal discharge. Mouth/Throat: dry mucous membranes, no redness, no lesions. Neck: Neck supple, non-tender, no cervical lymphadenopathy. Lungs: Clear NIKA to auscultation and percussion, No accessory muscle use. Cardio: Normal S1/S2, regular rhythm, no murmurs, no JVD Abdomen: Soft, non-tender, no palpable masses, peristalsis present, no guarding or rebound. Extremities: Symmetrical, no significant deformities, no peripheral edema , non-tender, peripheral pulses presents, slow unintentional movements of UE and LE. Skin: No rashes, no lesions, warm to touch. Neuro: Somnolent A/O x3, able to follow commands and able to move all extremities. Psych: somnolent Objective Labs 03/21/24 05:55 03/21/24 05:55 Labs: Laboratory Results - last 24 hr 03/20/24 03/20/24 03/20/24 16:48 18:46 18:49 WBC 16.9 H RBC 4.25 Hgb 12.8 Hct 37.9 MCV 89 MCH 30.1 MCHC 33.8 RDW Std Deviation 42.6 Plt Count 321 Neut % (Auto) 86 H Lymph % (Auto) 7 L [place] % (Auto) 5 Eos % (Auto) 1 Baso % (Auto) 0 Neut # (Auto) 14.6 H Lymph # (Auto) 1.2 [place] # (Auto) 0.9 H Eos # (Auto) 0.1 Baso # (Auto) 0.1 Immature Gran # (Auto) 0.07 H Absolute Nucleated RBC 0.00 Immature Gran % 0 Nucleated RBC % 0 PT 10.9 INR 1.0 APTT 27.3 Puncture Site ABG pH ABG pCO2 ABG pO2 ABG HCO3 ABG O2 Saturation ABG Base Excess VBG pH VBG pCO2 VBG pO2 VBG O2 Sat (Mihaela) VBG Base Excess Oxygen Liter Flow FiO2 Sodium 136 Potassium 3.2 L Chloride 103 Carbon Dioxide 27.0 Anion Gap 6 L BUN 21 Creatinine 0.9 Estim Creat Clear Calc 61.2 eGFR > 60 BUN/Creatinine Ratio 23 H Glucose 105 Calculated Osmolality 274 L Lactic Acid 1.0 Calcium 9.4 Corrected Calcium 9.4 Phosphorus 3.3 Magnesium 1.8 Total Bilirubin 0.5 AST 19 ALT 14 Alkaline Phosphatase 70 Lactate Dehydrogenase 289 H Total Creatine Kinase 53 Troponin I < 0.020 B-Natriuretic Peptide 68 Total Protein 6.7 Albumin 4.2 Globulin 2.5 Albumin/Globulin Ratio 1.7 Triglycerides Cholesterol LDL Cholesterol, Calc HDL Cholesterol Cholesterol/HDL Ratio Lipase 28 Procalcitonin < 0.04 TSH Ur Collection Type Urine Color Urine Clarity Urine pH Ur Specific [place] Urine Protein Urine Glucose (UA) Urine Ketones Urine Blood Urine Nitrite Urine Bilirubin Urine Urobilinogen (Auto) Ur Leukocyte Esterase Urine RBC Urine WBC Ur Squamous Epith Cells Urine Bacteria Ur Culture Indicated? Urine Opiates Screen Urine Fentanyl Screen Ur Barbiturates Screen U Amphetamin/Meth Scrn U Benzodiazepines Scrn U Cocaine Metab Screen U Marijuana (THC) Screen Ethyl Alcohol < 3.0 Influenza A (Rapid) Influenza B (Rapid) SARS-CoV-2 Ag (Rapid) 03/20/24 03/21/24 03/21/24 19:42 01:04 03:37 WBC RBC Hgb Hct MCV MCH MCHC RDW Std Deviation Plt Count Neut % (Auto) Lymph % (Auto) [place] % (Auto) Eos % (Auto) Baso % (Auto) Neut # (Auto) Lymph # (Auto) [place] # (Auto) Eos # (Auto) Baso # (Auto) Immature Gran # (Auto) Absolute Nucleated RBC Immature Gran % Nucleated RBC % PT INR APTT Puncture Site Right Radial Right Radial ABG pH 7.38 7.38 ABG pCO2 48 52 H ABG pO2 59 L* 110 H D ABG HCO3 28 H 31 H ABG O2 Saturation 90 L 99 H ABG Base Excess 2 4 H VBG pH VBG pCO2 VBG pO2 VBG O2 Sat (Mihaela) VBG Base Excess Oxygen Liter Flow 6 FiO2 100 Sodium Potassium Chloride Carbon Dioxide Anion Gap BUN Creatinine Estim Creat Clear Calc eGFR BUN/Creatinine Ratio Glucose Calculated Osmolality Lactic Acid Calcium Corrected Calcium Phosphorus Magnesium Total Bilirubin AST ALT Alkaline Phosphatase Lactate Dehydrogenase Total Creatine Kinase Troponin I B-Natriuretic Peptide Total Protein Albumin Globulin Albumin/Globulin Ratio Triglycerides Cholesterol LDL Cholesterol, Calc HDL Cholesterol Cholesterol/HDL Ratio Lipase Procalcitonin TSH Ur Collection Type Clean Catch Urine Color Yellow Urine Clarity Turbid A Urine pH 6.0 Ur Specific [place] 1.027 Urine Protein Negative Urine Glucose (UA) Negative Urine Ketones Negative Urine Blood Negative Urine Nitrite Positive Urine Bilirubin Negative Urine Urobilinogen (Auto) Negative Ur Leukocyte Esterase Negative Urine RBC 2 Urine WBC 4 Ur Squamous Epith Cells < 1 Urine Bacteria Rare Ur Culture Indicated? Yes Urine Opiates Screen Positive A Urine Fentanyl Screen Negative Ur Barbiturates Screen Negative U Amphetamin/Meth Scrn Positive A U Benzodiazepines Scrn Negative U Cocaine Metab Screen Negative U Marijuana (THC) Screen Positive A Ethyl Alcohol Influenza A (Rapid) Influenza B (Rapid) SARS-CoV-2 Ag (Rapid) 03/21/24 03/21/24 03/21/24 04:35 05:55 10:11 WBC 16.4 H RBC 4.17 Hgb 12.5 Hct 37.8 MCV 91 MCH 30.0 MCHC 33.1 RDW Std Deviation 43.6 Plt Count 274 D Neut % (Auto) 92 H Lymph % (Auto) 3 L [place] % (Auto) 3 Eos % (Auto) 2 Baso % (Auto) 1 Neut # (Auto) 15.0 H Lymph # (Auto) 0.4 L [place] # (Auto) 0.5 Eos # (Auto) 0.2 Baso # (Auto) 0.1 Immature Gran # (Auto) 0.08 H Absolute Nucleated RBC 0.00 Immature Gran % 1 H Nucleated RBC % 0 PT INR APTT Puncture Site ABG pH ABG pCO2 ABG pO2 ABG HCO3 ABG O2 Saturation ABG Base Excess VBG pH 7.47 VBG pCO2 41 VBG pO2 87 H VBG O2 Sat (Mihaela) 97 VBG Base Excess 5 H Oxygen Liter Flow FiO2 Sodium 136 Potassium 3.4 Chloride 100 Carbon Dioxide 28.9 Anion Gap 7 BUN 17 Creatinine 1.0 Estim Creat Clear Calc 55.7 L eGFR > 60 BUN/Creatinine Ratio 17 Glucose 129 H Calculated Osmolality 275 Lactic Acid Calcium 9.1 Corrected Calcium 9.1 Phosphorus 2.9 Magnesium 1.9 Total Bilirubin 0.9 AST 20 ALT 13 Alkaline Phosphatase 68 Lactate Dehydrogenase Total Creatine Kinase Troponin I B-Natriuretic Peptide Total Protein 6.8 Albumin 4.2 Globulin 2.6 Albumin/Globulin Ratio 1.6 Triglycerides 49 Cholesterol 189 LDL Cholesterol, Calc 110 HDL Cholesterol 69 H Cholesterol/HDL Ratio 2.7 L Lipase Procalcitonin TSH 1.69 Ur Collection Type Urine Color Urine Clarity Urine pH Ur Specific [place] Urine Protein Urine Glucose (UA) Urine Ketones Urine Blood Urine Nitrite Urine Bilirubin Urine Urobilinogen (Auto) Ur Leukocyte Esterase Urine RBC Urine WBC Ur Squamous Epith Cells Urine Bacteria Ur Culture Indicated? Urine Opiates Screen Urine Fentanyl Screen Ur Barbiturates Screen U Amphetamin/Meth Scrn U Benzodiazepines Scrn U Cocaine Metab Screen U Marijuana (THC) Screen Ethyl Alcohol Influenza A (Rapid) Negative Influenza B (Rapid) Negative SARS-CoV-2 Ag (Rapid) Negative ABG Interpretation ABG results: 03/21/24 03/21/24 03/21/24 01:04 03:37 10:11 ABG pH 7.38 7.38 ABG pCO2 48 52 H ABG pO2 59 L* 110 H D ABG HCO3 28 H 31 H ABG O2 Saturation 90 L 99 H ABG Base Excess 2 4 H VBG pH 7.47 VBG pCO2 41 VBG pO2 87 H VBG Base Excess 5 H Quality Measures Quality Measures VTE prophylaxis Advance care planning discussed with:: patient Assessment & Plan Assessment Current Active Medications: Generic Name Dose Route Start Last Admin Trade Name Freq PRN Reason Stop Dose Admin Acetaminophen 650 mg 03/21/24 08:48 Acetaminophen 325 Mg Tablet PO 04/19/24 22:10 Q6H PRN PAIN 1-3 OR FEVER > 101 Albuterol/Ipratropium 3 ml 03/21/24 03:45 03/21/24 10:28 Albuterol/Ipratropium (Duoneb) Rt Pooja 3 Ml Nebu INH 04/20/24 03:44 3 ml Q4HR MARY BETH Administration Azithromycin 500 mg 03/22/24 09:00 Azithromycin 250 Mg Tablet PO 03/29/24 08:59 QDAY MARY BETH Protocol Citalopram Hydrobromide 40 mg 03/21/24 10:45 03/21/24 12:39 Citalopram 20 Mg Tablet PO 04/20/24 10:44 40 mg QDAY MARY BETH Administration Furosemide 40 mg 03/21/24 09:00 03/21/24 08:49 Furosemide Inj 10 Mg/Ml 4ml Vial IVP 04/20/24 08:59 40 mg QDAY MARY BETH Administration Ceftriaxone Sodium/Dextrose 50 mls @ 100 mls/hr 03/21/24 10:42 03/21/24 12:39 Rocephin/D5w 1gm Iv Premix IV 03/28/24 10:41 100 mls/hr QDAY MARY BETH Administration Lorazepam 2 mg 03/21/24 03:37 03/21/24 03:50 Lorazepam 2 Mg/Ml Vial IVP 03/26/24 03:36 2 mg X1 PRN Administration AGITATION (MODERATE) Montelukast Sodium 10 mg 03/21/24 21:00 Montelukast Sodium 10 Mg Tablet PO 04/20/24 20:59 HS MARY BETH Morphine Sulfate 2 mg 03/21/24 00:59 03/21/24 01:21 Morphine Sulf Inj 10 Mg/Ml Vial IVP 03/25/24 22:10 2 mg Q3H PRN Administration PAIN SCALE 7-10 (Severe Ondansetron HCl 4 mg 03/20/24 22:11 03/21/24 01:22 Ondansetron Inj 2 Mg/Ml Inj 2 Ml IV 04/19/24 22:10 4 mg Q6H PRN Administration NAUSEA OR VOMITING Protocol Oxycodone/Acetaminophen 1 tab 03/20/24 22:11 Oxycodone/Apap 5/325 Tablet PO 03/25/24 22:10 Q6H PRN PAIN SCALE 4-6 (Moderate Pantoprazole Sodium 40 mg 03/21/24 09:00 03/21/24 08:49 Pantoprazole 40 Mg Tablet PO 04/20/24 08:59 40 mg QDAY MARY BETH Administration Quetiapine Fumarate 100 mg 03/21/24 21:00 Quetiapine Fumarate 100 Mg Tablet PO 04/20/24 20:59 HS MARY BETH Plan 68-year-old female with past medical history of meth use, asthma, psychiatric disorders, and HFrEF (50 to 55% EF 2020) was admitted to the hospital on 03/20/2024 due to left hip fracture secondary to mechanical fall and acute hypoxic respiratory failure likely secondary to acute decompensated heart failure exacerbation versus pneumonia versus asthma exacerbation. #Acute impacted left subcapital hip fracture #Mechanical fall ?Initially patient came in after mechanical fall from tripping in her house. ? Hip/pelvis x-ray showed acute impacted left subcapital hip fracture Plan: ?Holding chemical DVT prophylaxis given possibility of surgery tomorrow ?Pending cardiac clearance ?Patient is on pain management medication as needed ? Consulted orthopedics (Dr. Craven), appreciate recommendations ?Will continue to monitor #Acute hypoxic respiratory failure likely secondary to community-acquired pneumonia versus asthma exacerbation versus acute decompensated heart failure exacerbation #Acute decompensated heart failure exacerbation #HFpEF (50 to 55% EF 2020) #Community-acquired pneumonia #Asthma exacerbation ?Initially patient had some wheezing on physical exam as well as leukocytosis on blood work. ?DDx AHRF likely secondary to heart failure exacerbation in the setting of pulmonary edema versus community-acquired pneumonia given leukocytosis and most recent chest x-ray findings versus asthma exacerbation. ? Patient remains on oxy mask at 4 L and saturating at 95%. ?Chest CTA 03/12/2024 showed moderate CHF ? Chest x-ray 03/20/2024 showed pulmonary edema and HF ? Chest x-ray 03/21/2024 showed bilateral pneumonia and possible pulmonary edema ?Patient had a negative balance of 1600 mL today ?DC'd steroids as patient had no wheezing today Plan: ?Continue Rocephin and azithromycin [03/21/2024?] ?Continue Lasix 40 mg daily ?DuoNebs as needed ?Echo ordered, will follow-up ?Fluid restrictions daily 1500 ? Strict NIDHI's ?O2 administration as needed ? Cardio consulted, appreciate accommodations ?Will continue to monitor #Somnolence ?Patient was very somnolent this morning but was AO x 3 ?This is most likely due to medication as patient got multiple doses of Ativan, morphine, and haloperidol ?Head CT was unremarkable Plan: ?Will continue to monitor ?Will consider holding back on medication that can cause further somnolence #UTI ?UA was positive for bacteria and nitrates Plan: ?Continue Rocephin [03/20/2024?] ?Urine and blood cultures pending ?Will continue to monitor #Abnormal body movements #Hx of psychiatric disorders ?Given patient's history of psychiatric disorders on Seroquel and citalopram differential diagnoses include tardive dyskinesia versus [place]'s versus meth withdrawal Plan: ?Restarted patient's cervical and citalopram ?Will continue to monitor #Hx of meth use ?Patient U-Tox positive for meth ?Counseled the patient on abstaining from meth use given history of HFpEF Disposition: Patient seen in med surg, somnolent but A/Ox3, pending orthopedic surgeon recommendation, possible surgery tomorrow. Diet: Cardiac GI prophylaxis: protonix DVT prophylaxis: SCDs given possible surgery Code:Full Case disclosed with Attending Dr. Tom Macias PGY1 Attending Provider Attestation/Addendum I have examined the patient, reviewed labs and imaging findings, discussed the case with the resident(s), and reviewed entered orders. I agree with the plan of care as outlined in this note, with these additional summaries/recommendations: # Acute hypoxic respiratory failure # Community-acquired pneumonia #?CHF exacerbation # History of COPD Presented with shortness of breath, minimal wheezing, and productive cough Chest x-ray significant for bilateral pneumonia with possible component of pulmonary edema No previous history of heart failure per patient Continue strict I's and O's and fluid restriction Continue home Singulair and breathing treatments every 4 hours Continue IV Rocephin and azithromycin Continue IV diuresis and will initiate goal-directed medical therapy if echocardiogram confirms heart failure. Repeat hematology panel in AM & F/U blood cultures # Left hip fracture After ground-level mechanical fall X-ray revealed acute impacted left subcapital Cardiology consulted for preop clearance Continue pain management with oral [place] and IV morphine for breakthrough pain SCDs for now and physical therapy when able # Polysubstance abuse customer services coordinator consultation. Continue home Seroquel and citalopram # Primary hypertension Resume home antihypertensives as tolerated Dr. Santos
--- NOTE | 2024-03-21 14:14 | PC.SS ---
Rounding note; Patient is pending Surgery.
[2024-03-21] MEDS: AZITHROMYCIN INJ 500 MG in SODIUM CHLORIDE 0.9% 250 ML 250 ML 250 MG IV (15:11)
--- NOTE | 2024-03-21 19:04 | CONPN_ITS ---
Subjective Subjective Brief History: Patient was at her house and fell. After the fall she had pain in her left hip. She was able to ambulate with a cane. She had Thanksgiving with her daughter and was brought to the emergency room with severe pain left hip. No pain in her upper extremities left lower extremities. She does have pain in her left hip no pain left knee left ankle or foot Narrative: Patient having less pain. No new complaints. Still has pain in the left hip and is able to actively flex and extend her left hip today her movement disorder is much better Exam Vital Signs Temp Pulse Resp BP Pulse Ox O2 Del Method O2 Flow Rate 97.1 F 83 20 137/72 H 98 Nasal Cannula 4 03/21/24 16:00 03/21/24 18:53 03/21/24 18:53 03/21/24 16:00 03/21/24 18:53 03/21/24 16:00 03/21/24 18:53 Blood pressure 137/72. Pulse ox 98 on 4 L Narrative Exam Patient's extreme movement disorder that she had last night is significantly improved. Does have active flexion extension of left hip. No pain left knee left foot or ankle. Objective - Ortho Labs 03/21/24 05:55 03/21/24 05:55 Labs: Laboratory Results - last 24 hr 03/20/24 03/20/24 03/20/24 18:46 18:49 19:42 WBC RBC Hgb Hct MCV MCH MCHC RDW Std Deviation Plt Count Neut % (Auto) Lymph % (Auto) [place] % (Auto) Eos % (Auto) Baso % (Auto) Neut # (Auto) Lymph # (Auto) [place] # (Auto) Eos # (Auto) Baso # (Auto) Immature Gran # (Auto) Absolute Nucleated RBC Immature Gran % Nucleated RBC % PT 10.9 INR 1.0 APTT 27.3 Puncture Site ABG pH ABG pCO2 ABG pO2 ABG HCO3 ABG O2 Saturation ABG Base Excess VBG pH VBG pCO2 VBG pO2 VBG O2 Sat (Mihaela) VBG Base Excess Oxygen Liter Flow FiO2 Sodium Potassium Chloride Carbon Dioxide Anion Gap BUN Creatinine Estim Creat Clear Calc eGFR BUN/Creatinine Ratio Glucose Calculated Osmolality Lactic Acid 1.0 Calcium Corrected Calcium Phosphorus 3.3 Magnesium 1.8 Total Bilirubin AST ALT Alkaline Phosphatase Lactate Dehydrogenase 289 H B-Natriuretic Peptide 68 Total Protein Albumin Globulin Albumin/Globulin Ratio Triglycerides Cholesterol LDL Cholesterol, Calc HDL Cholesterol Cholesterol/HDL Ratio Lipase 28 Procalcitonin < 0.04 TSH Ur Collection Type Clean Catch Urine Color Yellow Urine Clarity Turbid A Urine pH 6.0 Ur Specific [place] 1.027 Urine Protein Negative Urine Glucose (UA) Negative Urine Ketones Negative Urine Blood Negative Urine Nitrite Positive Urine Bilirubin Negative Urine Urobilinogen (Auto) Negative Ur Leukocyte Esterase Negative Urine RBC 2 Urine WBC 4 Ur Squamous Epith Cells < 1 Urine Bacteria Rare Ur Culture Indicated? Yes Urine Opiates Screen Positive A Urine Fentanyl Screen Negative Ur Barbiturates Screen Negative U Amphetamin/Meth Scrn Positive A U Benzodiazepines Scrn Negative U Cocaine Metab Screen Negative U Marijuana (THC) Screen Positive A Ethyl Alcohol < 3.0 Influenza A (Rapid) Influenza B (Rapid) SARS-CoV-2 Ag (Rapid) 03/21/24 03/21/24 03/21/24 01:04 03:37 04:35 WBC RBC Hgb Hct MCV MCH MCHC RDW Std Deviation Plt Count Neut % (Auto) Lymph % (Auto) [place] % (Auto) Eos % (Auto) Baso % (Auto) Neut # (Auto) Lymph # (Auto) [place] # (Auto) Eos # (Auto) Baso # (Auto) Immature Gran # (Auto) Absolute Nucleated RBC Immature Gran % Nucleated RBC % PT INR APTT Puncture Site Right Radial Right Radial ABG pH 7.38 7.38 ABG pCO2 48 52 H ABG pO2 59 L* 110 H D ABG HCO3 28 H 31 H ABG O2 Saturation 90 L 99 H ABG Base Excess 2 4 H VBG pH VBG pCO2 VBG pO2 VBG O2 Sat (Mihaela) VBG Base Excess Oxygen Liter Flow 6 FiO2 100 Sodium Potassium Chloride Carbon Dioxide Anion Gap BUN Creatinine Estim Creat Clear Calc eGFR BUN/Creatinine Ratio Glucose Calculated Osmolality Lactic Acid Calcium Corrected Calcium Phosphorus Magnesium Total Bilirubin AST ALT Alkaline Phosphatase Lactate Dehydrogenase B-Natriuretic Peptide Total Protein Albumin Globulin Albumin/Globulin Ratio Triglycerides Cholesterol LDL Cholesterol, Calc HDL Cholesterol Cholesterol/HDL Ratio Lipase Procalcitonin TSH Ur Collection Type Urine Color Urine Clarity Urine pH Ur Specific [place] Urine Protein Urine Glucose (UA) Urine Ketones Urine Blood Urine Nitrite Urine Bilirubin Urine Urobilinogen (Auto) Ur Leukocyte Esterase Urine RBC Urine WBC Ur Squamous Epith Cells Urine Bacteria Ur Culture Indicated? Urine Opiates Screen Urine Fentanyl Screen Ur Barbiturates Screen U Amphetamin/Meth Scrn U Benzodiazepines Scrn U Cocaine Metab Screen U Marijuana (THC) Screen Ethyl Alcohol Influenza A (Rapid) Negative Influenza B (Rapid) Negative SARS-CoV-2 Ag (Rapid) Negative 03/21/24 03/21/24 05:55 10:11 WBC 16.4 H RBC 4.17 Hgb 12.5 Hct 37.8 MCV 91 MCH 30.0 MCHC 33.1 RDW Std Deviation 43.6 Plt Count 274 D Neut % (Auto) 92 H Lymph % (Auto) 3 L [place] % (Auto) 3 Eos % (Auto) 2 Baso % (Auto) 1 Neut # (Auto) 15.0 H Lymph # (Auto) 0.4 L [place] # (Auto) 0.5 Eos # (Auto) 0.2 Baso # (Auto) 0.1 Immature Gran # (Auto) 0.08 H Absolute Nucleated RBC 0.00 Immature Gran % 1 H Nucleated RBC % 0 PT INR APTT Puncture Site ABG pH ABG pCO2 ABG pO2 ABG HCO3 ABG O2 Saturation ABG Base Excess VBG pH 7.47 VBG pCO2 41 VBG pO2 87 H VBG O2 Sat (Mihaela) 97 VBG Base Excess 5 H Oxygen Liter Flow FiO2 Sodium 136 Potassium 3.4 Chloride 100 Carbon Dioxide 28.9 Anion Gap 7 BUN 17 Creatinine 1.0 Estim Creat Clear Calc 55.7 L eGFR > 60 BUN/Creatinine Ratio 17 Glucose 129 H Calculated Osmolality 275 Lactic Acid Calcium 9.1 Corrected Calcium 9.1 Phosphorus 2.9 Magnesium 1.9 Total Bilirubin 0.9 AST 20 ALT 13 Alkaline Phosphatase 68 Lactate Dehydrogenase B-Natriuretic Peptide Total Protein 6.8 Albumin 4.2 Globulin 2.6 Albumin/Globulin Ratio 1.6 Triglycerides 49 Cholesterol 189 LDL Cholesterol, Calc 110 HDL Cholesterol 69 H Cholesterol/HDL Ratio 2.7 L Lipase Procalcitonin TSH 1.69 Ur Collection Type Urine Color Urine Clarity Urine pH Ur Specific [place] Urine Protein Urine Glucose (UA) Urine Ketones Urine Blood Urine Nitrite Urine Bilirubin Urine Urobilinogen (Auto) Ur Leukocyte Esterase Urine RBC Urine WBC Ur Squamous Epith Cells Urine Bacteria Ur Culture Indicated? Urine Opiates Screen Urine Fentanyl Screen Ur Barbiturates Screen U Amphetamin/Meth Scrn U Benzodiazepines Scrn U Cocaine Metab Screen U Marijuana (THC) Screen Ethyl Alcohol Influenza A (Rapid) Influenza B (Rapid) SARS-CoV-2 Ag (Rapid) pO2 87 ABG Interpretation ABG results: 03/21/24 03/21/24 03/21/24 01:04 03:37 10:11 ABG pH 7.38 7.38 ABG pCO2 48 52 H ABG pO2 59 L* 110 H D ABG HCO3 28 H 31 H ABG O2 Saturation 90 L 99 H ABG Base Excess 2 4 H VBG pH 7.47 VBG pCO2 41 VBG pO2 87 H VBG Base Excess 5 H Assessment & Plan Assessment Additional comments: Will call Dr. Smiley. No cardiac echo today. Chest x-ray showed extensive pneumonia. Repeat CT scan of head showed frontal lobe infarct old Plan Will check with Dr. Smiley and being actively treated for pneumonia right now. Probably will hold off on surgery through the weekend would be nice to get it fixed and get her up in chair for pulmonary toilet. Initial CT scan of chest was felt to be congestive heart failure. It is hard to imagine that she has such extensive pneumonia with a relatively good pO2 on 4 L. Chest x-ray today was felt to be consistent with pneumonia. I am not sure a venous blood gas correlates with a arterial blood gas. Lactic acid is 1.0. Documentation for date of: 03/21/24
--- NOTE | 2024-03-21 19:06 | PD.IMCONS ---
HPI Data of Consult Requesting Physician: Dipak Bergman MD Primary Care Provider: Richi Abreu MD Consult Narrative History of present illness: This is a 68-year-old female with a history of methamphetamine use, hx of Asthma pt was admitted with a fall evaluation revealed L hip fracture cardiology consulted for cardiac clearance troponin negative EKG SR no acute changes pt denies cardiac symptoms cc:: cc: Dipak Bergman MD Meds Home Medications and Allergies Home Medications ?Medication ?Instructions ?Recorded ?Confirmed ?Type amlodipine 5 mg tablet 5 mg PO QDAY 09/30/19 08/30/20 History citalopram 40 mg tablet 40 mg PO QDAY 09/30/19 08/30/20 History montelukast 10 mg tablet 10 mg PO QPM 09/30/19 08/30/20 History omeprazole 20 mg tablet,delayed 20 mg PO QDAY 09/30/19 08/30/20 History release oxybutynin chloride 5 mg tablet 5 mg PO TID 09/30/19 08/30/20 History hydrochlorothiazide 12.5 mg capsule 12.5 mg PO QDAY 07/26/20 08/30/20 History quetiapine 100 mg tablet (Seroquel) 100 mg PO HS 07/26/20 08/30/20 History duloxetine 30 mg capsule,delayed 30 mg PO BID 08/30/20 08/30/20 History release gabapentin 300 mg capsule 300 mg PO BID 08/30/20 08/30/20 History valsartan 320 1 tab PO QDAY 08/30/20 08/30/20 History mg-hydrochlorothiazide 25 mg tablet Allergies Allergy/AdvReac Type Severity Reaction Status Date / Time Sulfa (Sulfonamide Allergy Unknown Verified 03/20/24 16:44 Antibiotics) Exam Vital Signs Temp Pulse Resp BP Pulse Ox O2 Del Method O2 Flow Rate 97.1 F 83 20 137/72 H 98 Nasal Cannula 4 03/21/24 16:00 03/21/24 18:53 03/21/24 18:53 03/21/24 16:00 03/21/24 18:53 03/21/24 16:00 03/21/24 18:53 Routine HEENT Exam Head: Present normocephalic and atraumatic Eye: Present EOMI and PERRL ENT: Present mucous membranes moist Routine Neck Exam Neck: Present supple and trachea midline Routine Respiratory Exam Respiratory: Present chest non-tender, lungs clear, normal breath sounds and no resp distress Routine Cardiovascular Exam Cardiovascular: Present RRR Routine Abdominal Exam Abdominal: Present soft and normoactive bowel sounds Routine Extremities Exam Extremities: Present full ROM Routine Skin Exam Skin: Present intact, dry and warm Routine Neurological Exam Neurological: Present alert, oriented X3 and CN II-XII intact Routine Psychiatric Exam Psychiatric: Present normal affect and normal thought process Results Labs 03/21/24 05:55 03/21/24 05:55 Labs: Short CBC 03/21/24 Range/Units 05:55 WBC 16.4 H (3.6-11.0) Thou/mm3 Hgb 12.5 (12.0-16.0) g/dL Hct 37.8 (36.0-46.0) % Plt Count 274 D (140-440) Thou/mm3 BMP 03/21/24 05:55 Sodium 136 Potassium 3.4 Chloride 100 Carbon Dioxide 28.9 BUN 17 Creatinine 1.0 Glucose 129 H Calcium 9.1 Liver Function 03/21/24 Range/Units 05:55 Total Bilirubin 0.9 (0.3-1.2) mg/dL AST 20 (0-34) U/L ALT 13 (10-49) U/L Alkaline Phosphatase 68 (46-116) U/L Albumin 4.2 (3.4-4.8) gm/dL Urine 03/20/24 Range/Units 19:42 Urine Color Yellow (Lt Yel-Yel) Urine Clarity Turbid A (Clear/Hazy) Urine pH 6.0 (5.0-7.0) Ur Specific [place] 1.027 (1.001-1.035) Urine Protein Negative (Neg - Trace) Urine Glucose (UA) Negative (Negative) ABG Interpretation ABG results: 03/21/24 03/21/24 03/21/24 01:04 03:37 10:11 ABG pH 7.38 7.38 ABG pCO2 48 52 H ABG pO2 59 L* 110 H D ABG HCO3 28 H 31 H ABG O2 Saturation 90 L 99 H ABG Base Excess 2 4 H VBG pH 7.47 VBG pCO2 41 VBG pO2 87 H VBG Base Excess 5 H Assessment and Plan Assessment and plan (1) Fracture of hip, left, closed: Status: Acute (2) Hypertension: Status: Acute (3) Transient cerebral ischemia: Status: Acute (4) Pneumonia: Status: Acute (5) Hypoxia: Status: Acute Additional Assessment & Plan Additional Plan: continue current meds troponin negative EKG unremarkable pt offers no cardiac symptoms pt considered to be optimum cardiac condition for the planned surgery
[2024-03-21] MEDS: QUEtiapine FUMARATE 100 MG TABLET PO (20:28)
[2024-03-21] MEDS: oxyCODONE/APAP 5/325 TABLET 1 TAB PO (20:28)
[2024-03-21] MEDS: MONTELUKAST SODIUM 10 MG TABLET PO (20:28)
--- NOTE | 2024-03-21 22:47 | XR_ITS ---
Examination: AP chest single view Technique: AP portable semiupright chest single view Exam date and time: March 21, 2024 1052 hrs. Comparison March 21, 2024 0358 hrs. Indications: Bilateral lung opacity consistent with pneumonia Minor prominence cardiac contour Central vascular congestion Old fracture right clavicle Impression: Bilateral pneumonia again noted with prominent right mediastinum Moderate vascular congestion
[2024-03-22] VITALS (12 sets, daily range): BP systolic 113–154; BP diastolic 51–68; PULSE 65–88; RESP 14–21; TEMP 36.3–36.9; O2SAT 94–99
[2024-03-22] MEDS: ALBUTEROL/IPRATROPIUM (Duoneb) RT SOL 3 ML NEBU INH ×2 (02:52→06:29)
[2024-03-22 06:05] LABS: Lactate (Lactic Acid) 1.5 mMol/L (0.4-2.0)
[2024-03-22 06:42] LABS: Basophils % (Auto) 0 % (0-2.5); Eosinophils % (Auto) 0 % (0-10); Hematocrit 36.2 % (36.0-46.0); Immature Granulocytes % (Auto) 1 % (0-0); Immature Granulocytes Auto 0.13 Thou/mm3 (0.00-0.00); Lymphocytes # (Auto) 0.9 Thou/mm3 (1.0-4.8); Lymphocytes % (Auto) 4 % (10-50); Mean Corpuscular HGB Conc 33.1 g/dl (31.0-37.0); Mean Corpuscular Hemoglobin 29.6 pg (25.0-35.0); Mean Corpuscular Volume 89 fL (80-100); Monocytes # (Auto) 1.2 Thou/mm3 (0.0-0.8); Monocytes % (Auto) 5 % (0-12); Neutrophils # (Auto) 19.2 Thou/mm3 (1.8-7.7); Neutrophils % (Auto) 90 % (37-80); Nucleated Red Blood Cell % 0 /100 WBC (0); Platelet Count 264 Thou/mm3 (140-440); RDW Standard Deviation 43.2 fL (36.4-46.3); Red Blood Count 4.05 Miln/mm3 (4.00-5.20); White Blood Count 21.4 Thou/mm3 (3.6-11.0)
[2024-03-22 06:49] LABS: Alanine Aminotransferase 11 U/L (10-49); Albumin, Serum 3.9 gm/dL (3.4-4.8); Albumin/Globulin Ratio 1.6 (1.2-2.2); Alkaline Phosphatase 64 U/L (46-116); Anion Gap 5 (7-16); Aspartate Amino Transferase 16 U/L (0-34); BUN/Creatinine Ratio 27 Ratio (12-20); Bilirubin,Total 0.5 mg/dL (0.3-1.2); Blood Urea Nitrogen 24 mg/dL (9-23); Calcium 9.3 mg/dL (8.3-10.6); Calcium (Corrected) 9.4 mg/dL (8.5-10.1); Carbon Dioxide 31.8 mMol/L (20.0-31.0); Chloride 99 mMol/L (98-107); Creatinine (Component) 0.9 mg/dL (0.6-1.3); Estimated Creatinine Clearance 61.8 mL/min (>60); Globulin 2.5 gm/dL (2.3-3.5); Glucose 124 mg/dL (74-106); Osmolality,Calculated 276 (275-295); Phosphorous 3.4 mg/dL (2.4-5.1); Potassium 3.2 mMol/L (3.4-5.1); Sodium 136 mMol/L (136-145); Total Protein 6.4 gm/dL (5.7-8.2); eGFR > 60 See Note
[2024-03-22 06:57] LABS: B-Type Natriuretic Peptide 85 pg/mL (0-100)
[2024-03-22] MEDS: MORPHINE SULF INJ 10 MG/ML VIAL 2 MG IVP ×2 (07:18→13:20)
[2024-03-22] MEDS: POTASSIUM CHLORIDE 20 mEq TABCR 40 MEQ PO (07:37)
--- NOTE | 2024-03-22 08:51 | ESPR_ITS ---
Documentation for date of: 03/22/24 Subjective Subjective Interval history: Patient was seen at bedside this morning. No overnight events. Patient's daughter was at bedside and patient stated was okay to discuss health issues with her daughter and they will be setting up an advanced directive and power of deputy attorney general with health care social worker. Patient states she felt better today and she was more awake and alert today. Orthopedic surgery Dr. Craven stated that he will hold off on any surgery at this time given possible pneumonia seen on chest x- ray. Cardiology saw the patient and medically cleared the patient for surgery. Given this delay in surgery at this time patient was started on chemical DVT prophylaxis. Patient also developed some contraction alkalosis likely due to diuresis therefore Lasix was held for today. No other complaints at this time. Exam Vital Signs Temp Pulse Resp BP Pulse Ox O2 Del Method O2 Flow Rate 98.5 F 83 18 154/68 H 96 Oxy Mask 2.5 03/22/24 08:00 03/22/24 08:00 03/22/24 08:00 03/22/24 08:00 03/22/24 08:00 03/22/24 08:00 03/22/24 08:00 Narrative Exam General: A/O x3, more alert and awake today Eyes: PERRL, EOMI. Anicteric, vision grossly intact. Ears: No ear pain, no ear discharge, Hearing grossly intact. Nose: No nasal discharge. Mouth/Throat: dry mucous membranes, no redness, no lesions. Neck: Neck supple, non-tender, no cervical lymphadenopathy. Lungs: Clear NIKA to auscultation and percussion, No accessory muscle use. Cardio: Normal S1/S2, regular rhythm, no murmurs, no JVD Abdomen: Soft, non-tender, no palpable masses, peristalsis present, no guarding or rebound. Extremities: Symmetrical, no significant deformities, no peripheral edema , non-tender, peripheral pulses presents, slow unintentional movements of UE and LE seen again today, but lesser. Skin: No rashes, no lesions, warm to touch. Neuro: No focal neurological deficits, able to follow commands and able to move all extremities. Objective Labs 03/22/24 05:32 03/22/24 05:32 Labs: Laboratory Results - last 24 hr 03/21/24 03/22/24 10:11 05:32 WBC 21.4 H D RBC 4.05 Hgb 12.0 Hct 36.2 MCV 89 MCH 29.6 MCHC 33.1 RDW Std Deviation 43.2 Plt Count 264 Neut % (Auto) 90 H Lymph % (Auto) 4 L [place] % (Auto) 5 Eos % (Auto) 0 Baso % (Auto) 0 Neut # (Auto) 19.2 H Lymph # (Auto) 0.9 L [place] # (Auto) 1.2 H Eos # (Auto) 0.0 Baso # (Auto) 0.0 Immature Gran # (Auto) 0.13 H Absolute Nucleated RBC 0.00 Immature Gran % 1 H Nucleated RBC % 0 VBG pH 7.47 VBG pCO2 41 VBG pO2 87 H VBG O2 Sat (Mihaela) 97 VBG Base Excess 5 H Sodium 136 Potassium 3.2 L Chloride 99 Carbon Dioxide 31.8 H Anion Gap 5 L BUN 24 H Creatinine 0.9 Estim Creat Clear Calc 61.8 eGFR > 60 BUN/Creatinine Ratio 27 H Glucose 124 H Calculated Osmolality 276 Lactic Acid 1.5 Calcium 9.3 Corrected Calcium 9.4 Phosphorus 3.4 Magnesium 2.0 Total Bilirubin 0.5 AST 16 ALT 11 Alkaline Phosphatase 64 B-Natriuretic Peptide 85 Total Protein 6.4 Albumin 3.9 Globulin 2.5 Albumin/Globulin Ratio 1.6 ABG Interpretation ABG results: 03/21/24 03/21/24 03/21/24 01:04 03:37 10:11 ABG pH 7.38 7.38 ABG pCO2 48 52 H ABG pO2 59 L* 110 H D ABG HCO3 28 H 31 H ABG O2 Saturation 90 L 99 H ABG Base Excess 2 4 H VBG pH 7.47 VBG pCO2 41 VBG pO2 87 H VBG Base Excess 5 H Quality Measures Quality Measures VTE prophylaxis Advance care planning discussed with:: patient and child Assessment & Plan Assessment Current Active Medications: Generic Name Dose Route Start Last Admin Trade Name Freq PRN Reason Stop Dose Admin Acetaminophen 650 mg 03/21/24 08:48 Acetaminophen 325 Mg Tablet PO 04/19/24 22:10 Q6H PRN PAIN 1-3 OR FEVER > 101 Albuterol/Ipratropium 3 ml 03/21/24 03:45 03/22/24 06:29 Albuterol/Ipratropium (Duoneb) Rt Pooja 3 Ml Nebu INH 04/20/24 03:44 3 ml Q4HR MARY BETH Administration Azithromycin 500 mg 03/22/24 09:00 Azithromycin 250 Mg Tablet PO 03/29/24 08:59 QDAY MARY BETH Protocol Citalopram Hydrobromide 40 mg 03/21/24 10:45 03/21/24 12:39 Citalopram 20 Mg Tablet PO 04/20/24 10:44 40 mg QDAY MARY BETH Administration Heparin Sodium (Porcine) 5,000 unit 03/22/24 09:00 Heparin Sod Inj 5000 Unit/Ml Vial SC 04/05/24 08:59 Q8HR MARY BETH Ceftriaxone Sodium/Dextrose 50 mls @ 100 mls/hr 03/21/24 10:42 03/21/24 12:39 Rocephin/D5w 1gm Iv Premix IV 03/28/24 10:41 100 mls/hr QDAY MARY BETH Administration Lorazepam 2 mg 03/21/24 03:37 03/21/24 03:50 Lorazepam 2 Mg/Ml Vial IVP 03/26/24 03:36 2 mg X1 PRN Administration AGITATION (MODERATE) Montelukast Sodium 10 mg 03/21/24 21:00 03/21/24 20:28 Montelukast Sodium 10 Mg Tablet PO 04/20/24 20:59 10 mg HS MARY BETH Administration Morphine Sulfate 2 mg 03/21/24 00:59 03/22/24 07:18 Morphine Sulf Inj 10 Mg/Ml Vial IVP 03/25/24 22:10 2 mg Q3H PRN Administration PAIN SCALE 7-10 (Severe Ondansetron HCl 4 mg 03/20/24 22:11 03/21/24 01:22 Ondansetron Inj 2 Mg/Ml Inj 2 Ml IV 04/19/24 22:10 4 mg Q6H PRN Administration NAUSEA OR VOMITING Protocol Oxycodone/Acetaminophen 1 tab 03/20/24 22:11 03/21/24 20:28 Oxycodone/Apap 5/325 Tablet PO 03/25/24 22:10 1 tab Q6H PRN Administration PAIN SCALE 4-6 (Moderate Pantoprazole Sodium 40 mg 03/21/24 09:00 03/21/24 08:49 Pantoprazole 40 Mg Tablet PO 04/20/24 08:59 40 mg QDAY MARY BETH Administration Quetiapine Fumarate 100 mg 03/21/24 21:00 03/21/24 20:28 Quetiapine Fumarate 100 Mg Tablet PO 04/20/24 20:59 100 mg HS MARY BETH Administration Plan 68-year-old female with past medical history of meth use, asthma, psychiatric disorders, and HFrEF (50 to 55% EF 2020) was admitted to the hospital on 03/20/2024 due to left hip fracture secondary to mechanical fall and acute hypoxic respiratory failure likely secondary to acute decompensated heart failure exacerbation versus pneumonia versus asthma exacerbation. #Acute impacted left subcapital hip fracture #Mechanical fall ?Initially patient came in after mechanical fall from tripping in her house. ? Hip/pelvis x-ray showed acute impacted left subcapital hip fracture ?Cardiac cleared for surgery Plan: ?Started chemical DVT prophylaxis as no surgery in the weekend ?Patient is on pain management medication as needed ? Consulted orthopedics (Dr. Craven), appreciate recommendations ?Will continue to monitor #Acute hypoxic respiratory failure likely secondary to community-acquired pneumonia versus asthma exacerbation versus acute decompensated heart failure exacerbation #Acute decompensated heart failure exacerbation #HFpEF (50 to 55% EF 2020) #Community-acquired pneumonia #Asthma exacerbation #leukocytosis #Contraction alkalosis ?Initially patient had some wheezing on physical exam as well as leukocytosis on blood work. ?DDx AHRF likely secondary to heart failure exacerbation in the setting of pulmonary edema versus community-acquired pneumonia given leukocytosis and most recent chest x-ray findings versus asthma exacerbation. ? Patient remains on oxy mask at 4 L and saturating at 95%. ?Chest CTA 03/12/2024 showed moderate CHF ? Chest x-ray 03/20/2024 showed pulmonary edema and HF ? Chest x-ray 03/21/2024 showed bilateral pneumonia and possible pulmonary edema ?Patient had a negative balance of 1600 mL today ?DC'd steroids as patient had no wheezing today -WBC 21.4 today could be reactive due to steroids Plan: ?Continue Rocephin and azithromycin [03/21/2024?] ?held Lasix 40 mg daily ?DuoNebs as needed ?Echo pending ?Fluid restrictions daily 1500 ? Strict NIDHI's ?O2 administration as needed ? Cardio consulted, appreciate accommodations ?Will continue to monitor #Somnolence, improving ?Patient was more alert and awake today A/Ox3 ?This is most likely due to medication as patient got multiple doses of Ativan, morphine, and haloperidol ?Head CT was unremarkable Plan: ?Will continue to monitor ?Will consider holding back on medication that can cause further somnolence #UTI ?UA was positive for bacteria and nitrates Plan: ?Continue Rocephin [03/20/2024?] ?Urine and blood cultures pending ?Will continue to monitor #Abnormal body movements #Hx of psychiatric disorders ?Given patient's history of psychiatric disorders on Seroquel and citalopram differential diagnoses include tardive dyskinesia versus [place]'s versus meth withdrawal Plan: ?Continue patient's Seroquel and citalopram ?Will continue to monitor #Hx of meth use ?Patient U-Tox positive for meth ?Counseled the patient on abstaining from meth use given history of HFpEF Disposition: Patient seen in med surg, somnolent but A/Ox3, pending orthopedic surgeon recommendation, possible surgery tomorrow. Diet: Cardiac GI prophylaxis: protonix DVT prophylaxis: Heparin SCDs Code:Full Case disclosed with Attending Dr. Tom Macias PGY1 Attending Provider Attestation/Addendum I have examined the patient, reviewed labs and imaging findings, discussed the case with the resident(s), and reviewed entered orders. I agree with the plan of care as outlined in this note, with these additional summaries/recommendations: # Acute hypoxic respiratory failure # Community-acquired pneumonia #?CHF exacerbation # History of COPD Presented with shortness of breath, minimal wheezing, and productive cough Chest x-ray significant for bilateral pneumonia with possible component of pulmonary edema No previous history of heart failure per patient Continue strict I's and O's and fluid restriction Continue home Singulair and breathing treatments every 4 hours Continue IV Rocephin and azithromycin Continue IV diuresis and will initiate goal-directed medical therapy if echocardiogram confirms heart failure. Pending read by cardio. Repeat hematology panel in AM & blood cultures show no growth at 24 hrs. Significant leukocytosis present although likely 2/2 to steroids, continue to monitor # Left hip fracture After ground-level mechanical fall X-ray revealed acute impacted left subcapital Cardiology consulted for preop clearance Continue pain management with oral [place] and IV morphine for breakthrough pain Plan: Cardiology cleared for surgery from cardiac standpoint. Surgery deferred for now given severe bilateral pneumonia and likely surgery within following days pending improvement in pneumonia. 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 Continue home Seroquel and citalopram . Low dose ativan as needed if withdrawal symptoms develop # Primary hypertension Resume home antihypertensives as tolerated Dr. Santos
[2024-03-22] MEDS: AZITHROMYCIN 250 MG TABLET 500 MG PO (09:32)
[2024-03-22] MEDS: HEPARIN SOD INJ 5000 UNIT/ML VIAL SC ×3 (09:33→21:16)
[2024-03-22] MEDS: CITALOPRAM 20 MG TABLET 40 MG PO (09:33)
[2024-03-22] MEDS: PANTOPRAZOLE 40 MG TABLET PO (09:33)
[2024-03-22] MEDS: cefTRIAXone/D5w 1gm IV premix 50 ML IV (09:33)
--- NOTE | 2024-03-22 10:07 | PD.IMPROG ---
Documentation for date of: 03/22/24 Subjective Subjective Interval history: chest xray shows pneumonia pts WBC elevated pt on antibiotic agree with holding surgery Exam Vital Signs Temp Pulse Resp BP Pulse Ox O2 Del Method O2 Flow Rate 98.5 F 83 18 154/68 H 96 Oxy Mask 2.5 03/22/24 08:00 03/22/24 08:00 03/22/24 08:00 03/22/24 08:00 03/22/24 08:00 03/22/24 08:00 03/22/24 08:00 Routine HEENT Exam Head: Present normocephalic and atraumatic Eye: Present EOMI and PERRL ENT: Present mucous membranes moist Routine Neck Exam Neck: Present supple and trachea midline Routine Respiratory Exam Respiratory: Present chest non-tender, lungs clear, normal breath sounds and no resp distress Routine Cardiovascular Exam Cardiovascular: Present RRR Routine Abdominal Exam Abdominal: Present soft and normoactive bowel sounds Routine Extremities Exam Extremities: Present full ROM Routine Skin Exam Skin: Present intact, dry and warm Objective Labs 03/22/24 05:32 03/22/24 05:32 Labs: Laboratory Results - last 24 hr 03/21/24 03/22/24 10:11 05:32 WBC 21.4 H D RBC 4.05 Hgb 12.0 Hct 36.2 MCV 89 MCH 29.6 MCHC 33.1 RDW Std Deviation 43.2 Plt Count 264 Neut % (Auto) 90 H Lymph % (Auto) 4 L [place] % (Auto) 5 Eos % (Auto) 0 Baso % (Auto) 0 Neut # (Auto) 19.2 H Lymph # (Auto) 0.9 L [place] # (Auto) 1.2 H Eos # (Auto) 0.0 Baso # (Auto) 0.0 Immature Gran # (Auto) 0.13 H Absolute Nucleated RBC 0.00 Immature Gran % 1 H Nucleated RBC % 0 VBG pH 7.47 VBG pCO2 41 VBG pO2 87 H VBG O2 Sat (Mihaela) 97 VBG Base Excess 5 H Sodium 136 Potassium 3.2 L Chloride 99 Carbon Dioxide 31.8 H Anion Gap 5 L BUN 24 H Creatinine 0.9 Estim Creat Clear Calc 61.8 eGFR > 60 BUN/Creatinine Ratio 27 H Glucose 124 H Calculated Osmolality 276 Lactic Acid 1.5 Calcium 9.3 Corrected Calcium 9.4 Phosphorus 3.4 Magnesium 2.0 Total Bilirubin 0.5 AST 16 ALT 11 Alkaline Phosphatase 64 B-Natriuretic Peptide 85 Total Protein 6.4 Albumin 3.9 Globulin 2.5 Albumin/Globulin Ratio 1.6 ABG Interpretation ABG results: 03/21/24 03/21/24 03/21/24 01:04 03:37 10:11 ABG pH 7.38 7.38 ABG pCO2 48 52 H ABG pO2 59 L* 110 H D ABG HCO3 28 H 31 H ABG O2 Saturation 90 L 99 H ABG Base Excess 2 4 H VBG pH 7.47 VBG pCO2 41 VBG pO2 87 H VBG Base Excess 5 H Assessment & Plan A&P Narrative pt currently on antibiotics for pneumonia WBC elevated tody agree with holding surgery Time Spent With Patient Time: Total time spent is greater than 50% in coordination of care (as documented) at patient's floor/unit and/or counseling patient:
[2024-03-22] MEDS: oxyCODONE/APAP 5/325 TABLET 1 TAB PO (15:15)
--- NOTE | 2024-03-22 17:33 | CONPN_ITS ---
Subjective Subjective Brief History: Patient was at her house and fell. After the fall she had pain in her left hip. She was able to ambulate with a cane. She had Thanksgiving with her daughter and was brought to the emergency room with severe pain left hip. No pain in her upper extremities left lower extremities. She does have pain in her left hip no pain left knee left ankle or foot Narrative: Patient is more active. Her movement disorder has returned but not to the same degree she had the other night. When I talked to her initially she said she was not using methamphetamine and now says she is. She knows she has broken her hip and will need surgery. Exam Vital Signs Temp Pulse Resp BP Pulse Ox O2 Del Method O2 Flow Rate 97.9 F 68 18 113/51 L 98 Nasal Cannula 2.5 03/22/24 16:00 03/22/24 16:00 03/22/24 16:00 03/22/24 16:00 03/22/24 16:00 03/22/24 16:00 03/22/24 16:00 Blood pressure 113/51, respiratory rate 18 Narrative Exam She is lying on her right decubitus is able to move left hip left knee left foot and ankle. Objective - Ortho Labs 03/22/24 05:32 03/22/24 05:32 Labs: Laboratory Results - last 24 hr 03/22/24 05:32 WBC 21.4 H D RBC 4.05 Hgb 12.0 Hct 36.2 MCV 89 MCH 29.6 MCHC 33.1 RDW Std Deviation 43.2 Plt Count 264 Neut % (Auto) 90 H Lymph % (Auto) 4 L [place] % (Auto) 5 Eos % (Auto) 0 Baso % (Auto) 0 Neut # (Auto) 19.2 H Lymph # (Auto) 0.9 L [place] # (Auto) 1.2 H Eos # (Auto) 0.0 Baso # (Auto) 0.0 Immature Gran # (Auto) 0.13 H Absolute Nucleated RBC 0.00 Immature Gran % 1 H Nucleated RBC % 0 Sodium 136 Potassium 3.2 L Chloride 99 Carbon Dioxide 31.8 H Anion Gap 5 L BUN 24 H Creatinine 0.9 Estim Creat Clear Calc 61.8 eGFR > 60 BUN/Creatinine Ratio 27 H Glucose 124 H Calculated Osmolality 276 Lactic Acid 1.5 Calcium 9.3 Corrected Calcium 9.4 Phosphorus 3.4 Magnesium 2.0 Total Bilirubin 0.5 AST 16 ALT 11 Alkaline Phosphatase 64 B-Natriuretic Peptide 85 Total Protein 6.4 Albumin 3.9 Globulin 2.5 Albumin/Globulin Ratio 1.6 White count 21,000, lactic acid 1.5 and elevated BNP 85. ABG Interpretation ABG results: 03/21/24 03/21/24 03/21/24 01:04 03:37 10:11 ABG pH 7.38 7.38 ABG pCO2 48 52 H ABG pO2 59 L* 110 H D ABG HCO3 28 H 31 H ABG O2 Saturation 90 L 99 H ABG Base Excess 2 4 H VBG pH 7.47 VBG pCO2 41 VBG pO2 87 H VBG Base Excess 5 H Assessment & Plan Assessment Additional comments: Patient has significant bilateral pneumonia. She is not a candidate for surgery at the present time. White count is up. Plan Will follow along with hospital staff and Dr. Smiley. Do not anticipate surgery tomorrow Sunday Documentation for date of: 03/22/24
[2024-03-22] MEDS: QUEtiapine FUMARATE 100 MG TABLET PO (21:16)
[2024-03-22] MEDS: MONTELUKAST SODIUM 10 MG TABLET PO (21:16)
[2024-03-23] VITALS (11 sets, daily range): BP systolic 99–159; BP diastolic 50–77; PULSE 62–93; RESP 15–20; TEMP 36.2–36.4; O2SAT 93–100
[2024-03-23] MEDS: oxyCODONE/APAP 5/325 TABLET 1 TAB PO ×2 (01:27→07:43)
[2024-03-23] MEDS: HEPARIN SOD INJ 5000 UNIT/ML VIAL SC ×3 (05:53→22:03)
[2024-03-23 06:49] LABS: Basophils # (Auto) 0.1 Thou/mm3 (0.0-0.2); Basophils % (Auto) 1 % (0-2.5); Eosinophils # (Auto) 1.5 Thou/mm3 (0.0-0.5); Eosinophils % (Auto) 11 % (0-10); Hemoglobin 11.6 g/dL (12.0-16.0); Immature Granulocytes % (Auto) 1 % (0-0); Immature Granulocytes Auto 0.06 Thou/mm3 (0.00-0.00); Lymphocytes # (Auto) 2.2 Thou/mm3 (1.0-4.8); Lymphocytes % (Auto) 17 % (10-50); Mean Corpuscular HGB Conc 32.2 g/dl (31.0-37.0); Mean Corpuscular Hemoglobin 30.3 pg (25.0-35.0); Mean Corpuscular Volume 94 fL (80-100); Monocytes # (Auto) 1.2 Thou/mm3 (0.0-0.8); Monocytes % (Auto) 9 % (0-12); Neutrophils # (Auto) 8.1 Thou/mm3 (1.8-7.7); Neutrophils % (Auto) 61 % (37-80); Nucleated Red Blood Cell % 0 /100 WBC (0); Platelet Count 258 Thou/mm3 (140-440); RDW Standard Deviation 45.9 fL (36.4-46.3); Red Blood Count 3.83 Miln/mm3 (4.00-5.20); White Blood Count 13.2 Thou/mm3 (3.6-11.0)
[2024-03-23 07:06] LABS: Alanine Aminotransferase 12 U/L (10-49); Albumin, Serum 3.7 gm/dL (3.4-4.8); Albumin/Globulin Ratio 1.6 (1.2-2.2); Alkaline Phosphatase 54 U/L (46-116); Anion Gap 5 (7-16); Aspartate Amino Transferase 14 U/L (0-34); BUN/Creatinine Ratio 30 Ratio (12-20); Bilirubin,Total 0.4 mg/dL (0.3-1.2); Blood Urea Nitrogen 30 mg/dL (9-23); Calcium 9.2 mg/dL (8.3-10.6); Calcium (Corrected) 9.4 mg/dL (8.5-10.1); Carbon Dioxide 31.5 mMol/L (20.0-31.0); Chloride 101 mMol/L (98-107); Estimated Creatinine Clearance 55.7 mL/min (>60); Globulin 2.3 gm/dL (2.3-3.5); Glucose 89 mg/dL (74-106); Osmolality,Calculated 279 (275-295); Sodium 137 mMol/L (136-145); eGFR > 60 See Note
[2024-03-23] MEDS: CITALOPRAM 20 MG TABLET 40 MG PO (08:31)
[2024-03-23] MEDS: AZITHROMYCIN 250 MG TABLET 500 MG PO (08:31)
[2024-03-23] MEDS: PANTOPRAZOLE 40 MG TABLET PO (08:31)
[2024-03-23] MEDS: cefTRIAXone/D5w 1gm IV premix 50 ML IV (08:32)
--- NOTE | 2024-03-23 10:16 | PD.IMPROG ---
Documentation for date of: 03/23/24 Subjective Subjective Interval history: continue treatment for pneumonia improving WBC echo - normal EF Exam Vital Signs Temp Pulse Resp BP Pulse Ox O2 Del Method O2 Flow Rate 97.2 F 71 16 113/60 96 Oxy Mask 3 03/23/24 08:00 03/23/24 08:00 03/23/24 08:00 03/23/24 08:00 03/23/24 08:00 03/23/24 08:00 03/23/24 08:00 Routine HEENT Exam Head: Present normocephalic and atraumatic Eye: Present EOMI and PERRL ENT: Present mucous membranes moist Routine Neck Exam Neck: Present supple and trachea midline Routine Respiratory Exam Respiratory: Present chest non-tender, lungs clear, normal breath sounds and no resp distress Routine Cardiovascular Exam Cardiovascular: Present RRR Routine Abdominal Exam Abdominal: Present soft and normoactive bowel sounds Routine Extremities Exam Extremities: Present full ROM Routine Skin Exam Skin: Present intact, dry and warm Routine Neurological Exam Neurological: Present alert, oriented X3 and CN II-XII intact Routine Psychiatric Exam Psychiatric: Present normal affect and normal thought process Objective Labs 03/23/24 05:42 03/23/24 05:42 Labs: Laboratory Results - last 24 hr 03/23/24 05:42 WBC 13.2 H D RBC 3.83 L Hgb 11.6 L Hct 36.0 MCV 94 MCH 30.3 MCHC 32.2 RDW Std Deviation 45.9 Plt Count 258 Neut % (Auto) 61 Lymph % (Auto) 17 [place] % (Auto) 9 Eos % (Auto) 11 H Baso % (Auto) 1 Neut # (Auto) 8.1 H Lymph # (Auto) 2.2 [place] # (Auto) 1.2 H Eos # (Auto) 1.5 H Baso # (Auto) 0.1 Immature Gran # (Auto) 0.06 H Absolute Nucleated RBC 0.00 Immature Gran % 1 H Nucleated RBC % 0 Sodium 137 Potassium 4.0 D Chloride 101 Carbon Dioxide 31.5 H Anion Gap 5 L BUN 30 H Creatinine 1.0 Estim Creat Clear Calc 55.7 L eGFR > 60 BUN/Creatinine Ratio 30 H Glucose 89 Calculated Osmolality 279 Calcium 9.2 Corrected Calcium 9.4 Phosphorus 3.0 Magnesium 2.0 Total Bilirubin 0.4 AST 14 ALT 12 Alkaline Phosphatase 54 Total Protein 6.0 Albumin 3.7 Globulin 2.3 Albumin/Globulin Ratio 1.6 ABG Interpretation ABG results: 03/21/24 03/21/24 03/21/24 01:04 03:37 10:11 ABG pH 7.38 7.38 ABG pCO2 48 52 H ABG pO2 59 L* 110 H D ABG HCO3 28 H 31 H ABG O2 Saturation 90 L 99 H ABG Base Excess 2 4 H VBG pH 7.47 VBG pCO2 41 VBG pO2 87 H VBG Base Excess 5 H Assessment & Plan A&P Narrative pt currently on antibiotics for pneumonia WBC elevated tody agree with holding surgery Time Spent With Patient Time: Total time spent is greater than 50% in coordination of care (as documented) at patient's floor/unit and/or counseling patient:
--- NOTE | 2024-03-23 10:27 | PC.SS ---
SS follow up note; Patient is pending surgery, PNA to resolve.
[2024-03-23] MEDS: MORPHINE SULF INJ 10 MG/ML VIAL 2 MG IVP ×2 (11:02→23:15)
--- NOTE | 2024-03-23 11:08 | ESPR_ITS ---
<Statement entered by Torito Wong MD - 03/23/24 14:23> Patient was seen and examined at the bedside with internal medicine team. This patient 68-year-old female with ground-level fall complicated with hip fracture and admitted for community-acquired pneumonia receiving antibiotic therapy. Patient was wheezing on examination. We added breathing treatments scheduled and WBC count significantly improved since yesterday. Pending Ortho, Dr Craven recommendations and awaiting hip fracture surgery. Plan to complete antibiotic for community-acquired pneumonia. Currently on DVT prophylaxis with heparin. Echo showed EF 55%. All labs and orders were reviewed. I saw and examined the patient, and I agree with current management stated by Dr Jose Antonio MD,PGY1. Plan of care was discussed with the attending physician and resident physician. Disclaimer: Despite multiple revisions, due to the dictation software being used, the document bellow may not be free of grammatical errors including phonetic/typographic errors. However, this does not deter from our commitment to providing health care in the patient's best interest in mind. Dr. Tori MD, PGY 2 Documentation for date of: 03/23/24 Subjective Subjective Interval history: Patient was seen and examined at bedside this AM. No acute exents overnight. Patient tolerating diet, adequate urine output and mentation is at baseline. Patient states that her SOB is the same as yesterday Yesterday furosemide was discontinued in light of contraction alkalosis Currently bicarb down trended to 31.5 from 31.8 Patient had a positive fluid balance of 810 cc in the last 24 hours On exam patient had scattered wheeze throughout all lung lynne with no signs of lower extremity or sacral edema. Will continue to hold IV diuresis for now Patient is on D2 of ceftriaxone and azithromycin IV for treatment of community- acquired pneumonia. WBC down trended to 13.2 from 21.4 Exam Vital Signs Temp Pulse Resp BP Pulse Ox O2 Del Method O2 Flow Rate 97.2 F 71 16 113/60 96 Oxy Mask 3 03/23/24 08:00 03/23/24 08:00 03/23/24 08:00 03/23/24 08:00 03/23/24 08:00 03/23/24 08:00 03/23/24 08:00 Narrative Exam Constitutional Alert, oriented x 3 and comfortable. Elderly female on O2 via NC HEENT Vision grossly intact. Patent nares. Trachea midline Respiratory Chest normal on inspection and scattered Wheeze heard throughout lung lynne b/l Cardiovascular S1 and S2 audible, RRR. No murmurs carotid bruit. No gross JVD. Abdominal Soft and non tender to palpation in all quadrants. BS + Genitourinary No bladder tenderness, no flank pain. Normal to palpation Musculoskeletal Extremities tone within normal limits. No LE edema.Left leg shortened and externally rotated Neurological CN II - XII grossly intact. Extremity motor and sensation grossly intact. Skin Warm, dry and intact. No apparent lesions. Psychiatric Patient has good affect, is cooperative Objective Labs 03/23/24 05:42 03/23/24 05:42 Labs: Laboratory Results - last 24 hr 03/23/24 05:42 WBC 13.2 H D RBC 3.83 L Hgb 11.6 L Hct 36.0 MCV 94 MCH 30.3 MCHC 32.2 RDW Std Deviation 45.9 Plt Count 258 Neut % (Auto) 61 Lymph % (Auto) 17 [place] % (Auto) 9 Eos % (Auto) 11 H Baso % (Auto) 1 Neut # (Auto) 8.1 H Lymph # (Auto) 2.2 [place] # (Auto) 1.2 H Eos # (Auto) 1.5 H Baso # (Auto) 0.1 Immature Gran # (Auto) 0.06 H Absolute Nucleated RBC 0.00 Immature Gran % 1 H Nucleated RBC % 0 Sodium 137 Potassium 4.0 D Chloride 101 Carbon Dioxide 31.5 H Anion Gap 5 L BUN 30 H Creatinine 1.0 Estim Creat Clear Calc 55.7 L eGFR > 60 BUN/Creatinine Ratio 30 H Glucose 89 Calculated Osmolality 279 Calcium 9.2 Corrected Calcium 9.4 Phosphorus 3.0 Magnesium 2.0 Total Bilirubin 0.4 AST 14 ALT 12 Alkaline Phosphatase 54 Total Protein 6.0 Albumin 3.7 Globulin 2.3 Albumin/Globulin Ratio 1.6 ABG Interpretation ABG results: 03/21/24 03/21/24 03/21/24 01:04 03:37 10:11 ABG pH 7.38 7.38 ABG pCO2 48 52 H ABG pO2 59 L* 110 H D ABG HCO3 28 H 31 H ABG O2 Saturation 90 L 99 H ABG Base Excess 2 4 H VBG pH 7.47 VBG pCO2 41 VBG pO2 87 H VBG Base Excess 5 H Quality Measures Quality Measures VTE prophylaxis Advance care planning discussed with:: patient Assessment & Plan Assessment Current Active Medications: Generic Name Dose Route Start Last Admin Trade Name Freq PRN Reason Stop Dose Admin Acetaminophen 650 mg 03/21/24 08:48 Acetaminophen 325 Mg Tablet PO 04/19/24 22:10 Q6H PRN PAIN 1-3 OR FEVER > 101 Albuterol/Ipratropium 3 ml 03/23/24 15:00 Albuterol/Ipratropium (Duoneb) Rt Pooja 3 Ml Nebu INH 04/22/24 14:59 Q4HRRT MARY BETH Azithromycin 500 mg 03/22/24 09:00 03/23/24 08:31 Azithromycin 250 Mg Tablet PO 03/29/24 08:59 500 mg QDAY MARY BETH Administration Protocol Citalopram Hydrobromide 40 mg 03/21/24 10:45 03/23/24 08:31 Citalopram 20 Mg Tablet PO 04/20/24 10:44 40 mg QDAY MARY BETH Administration Heparin Sodium (Porcine) 5,000 unit 03/22/24 09:00 03/23/24 05:53 Heparin Sod Inj 5000 Unit/Ml Vial SC 04/05/24 08:59 5,000 unit Q8HR MARY BETH Administration Ceftriaxone Sodium/Dextrose 50 mls @ 100 mls/hr 03/21/24 10:42 03/23/24 08:32 Rocephin/D5w 1gm Iv Premix IV 03/28/24 10:41 100 mls/hr QDAY MARY BETH Administration Montelukast Sodium 10 mg 03/21/24 21:00 03/22/24 21:16 Montelukast Sodium 10 Mg Tablet PO 04/20/24 20:59 10 mg HS MARY BETH Administration Morphine Sulfate 2 mg 03/21/24 00:59 03/23/24 11:02 Morphine Sulf Inj 10 Mg/Ml Vial IVP 03/25/24 22:10 2 mg Q3H PRN Administration PAIN SCALE 7-10 (Severe Ondansetron HCl 4 mg 03/20/24 22:11 03/21/24 01:22 Ondansetron Inj 2 Mg/Ml Inj 2 Ml IV 04/19/24 22:10 4 mg Q6H PRN Administration NAUSEA OR VOMITING Protocol Oxycodone/Acetaminophen 1 tab 03/20/24 22:11 03/23/24 07:43 Oxycodone/Apap 5/325 Tablet PO 03/25/24 22:10 1 tab Q6H PRN Administration PAIN SCALE 4-6 (Moderate Pantoprazole Sodium 40 mg 03/21/24 09:00 03/23/24 08:31 Pantoprazole 40 Mg Tablet PO 04/20/24 08:59 40 mg QDAY MARY BETH Administration Quetiapine Fumarate 100 mg 03/21/24 21:00 03/22/24 21:16 Quetiapine Fumarate 100 Mg Tablet PO 04/20/24 20:59 100 mg HS MARY BETH Administration Plan 68-year-old female with past medical history of meth use, asthma, psychiatric disorders, and HFpEF (50 to 55% EF 2020) was admitted to the hospital on 03/20/2024 due to left hip fracture secondary to mechanical fall and acute respiratory failure with hypoxia secondary to community-acquired pneumonia with asthma exacerbation versus CHF exacerbation. 1. Acute respiratory failure with hypoxia Secondary to 2. Community-acquired pneumonia versus CHF exacerbation. 3. Acute decompensated chronic diastolic congestive heart failure [55%] On admission patient denies any symptoms of chest pain/pressure or palpitations. Also denied any SOB, orthopnea or PND. On exam patient had bilateral lower extremity edema which has now resolved On admission chest x-ray was significant bilateral pulmonary edema with increased vascular markings and extensive reticulonodular opacities. BNP on admission was insignificant at 68 troponin was also negative. Influenza A and B were negative Blood cultures from 03/20 no bacterial growth after 48 hours preliminary. Urine culture from 03/20 grew ESBL E. coli. CURB 65 =2 points; moderate risk: 6.8% 30-day mortality. Inpatient vs outpatient treatment PSI/PORT score = 89 point; Risk class III , 0.9-20% mortality. Outpatient or inpatient treatment Transthoracic echocardiogram completed on 03/21 findings include: Normal LV size and function. Mid anterior septal bounce. Estimated EF 55% Normal RV size and function. Trace MR, TR. Patient was on diuresis with furosemide IV 40 Mg IV daily which was discontinued on 03/22 due to contraction alkalosis. Currently patient has no lower extremity or sacral edema and lungs have scattered wheezes on exam, no crackles. Patient had a fluid balance of +810 cc in the past 24 hours Plan: ?D2 ceftriaxone and azithromycin IV started on [03/22? - Sputum culture ordered and RSV ? Continue supplemental O2 as necessary ? Continue to hold IV diuresis, patient euvolemic on exam ? Consider starting patient on FREDO/ARB along with beta-veronica as part of GDMT for heart failure. Pending cardiology recommendations. ? Cardiology consulted, appreciate recommendations. 3. Asthma exacerbation - resolving Patient has history of asthma and on montelukast 10 Mg p.o. every afternoon and albuterol inhaler as needed at home. On admission patient denied any SOB, cannot complete full sentences. On exam she has scattered wheezes heard throughout bilateral lung lynne. In the ED patient received Solu-Medrol 125 Mg IV x 1 and prednisone 40 Mg p.o. x 1 Plan: ? Continue supplemental O2 as necessary to maintain SpO2 >94% ? Continue DuoNebs Q4 hourly 4. Leukocytosis - improving On admission WBC 16.9 up trended to 21.4 and currently down trended to 13.2 DDx: Community-acquired pneumonia, asthma exacerbation, asymptomatic bacteriuria, secondary to steroid use. Plan: ? Continue to monitor CBC 5. Asymptomatic bacteriuria Patient denies any LUTS including dysuria, hesitancy, frequency or nocturia. Urinalysis was positive for bacteria and nitrates and urine culture significant for E. coli ESBL. 6. Choreoathetotic movements?resolved 7. History of psychiatric condition In the ED patient had choreiform movements which have now resolved. Patient states that this is normal for her and knows that this is a side effect of her antipsychotic medication. DDx: Drug intoxication, [facility], sending him chorea, hyper/hypothyroidism On admission U tox significant for methamphetamine Patient received Benadryl IV in the ED and movement subsided Home medication quetiapine 100 Mg p.o. at bedtime and citalopram 40 Mg p.o. daily Possibly due to medication side effect or intoxication with methamphetamines. Will continue to monitor patient Plan: ? Continue home medication quetiapine 100 Mg p.o. at bedtime and citalopram 40 Mg p.o. daily 8. Acute impacted left subcapital hip fracture Secondary to 9. Ground-level fall Patient presented after ground-level fall from tripping in her house. On admission hip/pelvis x-ray showed acute impacted left subcapital hip fracture On exam patient's left leg shortened and externally rotated. Initially cardiology cleared for surgery but then deemed her onsets in light of treatment for pneumonia and elevated WBC. Plan: ? Continue pain management with morphine 2 Mg IV Q3 hourly as needed for severe pain -oxycodone/acetaminophen 5/25 2 tab p.o. Q6 hourly for moderate to severe pain ? Continue DVT prophylaxis with heparin SC ? Continue rest of management as per orthopedics, Dr. Craven. 10. History of methamphetamine use Patient initially denied methamphetamine use, however U tox was positive for methamphetamine on admission. Patient counseled on methamphetamine cessation. Patient agrees Health maintenance: Disposition: IV antibiotics for CAP. Awaiting cardiac clearance for Hip surgery Diet: Cardiac Lines: pIVs GI Prophylaxis: None Thrombo Prophylaxis: Heparin Code status: FULL CODE Plan of care discussed with Attending Dr. Santos and PGY2 Dr. Tori Muñiz MD PGY 1 Attending Provider Attestation/Addendum I have examined the patient, reviewed labs and imaging findings, discussed the case with the resident(s), and reviewed entered orders. I agree with the plan of care as outlined in this note, with these additional summaries/recommendations: # Acute hypoxic respiratory failure # Community-acquired pneumonia # History of COPD Presented with shortness of breath, minimal wheezing, and productive cough Chest x-ray significant for bilateral pneumonia with possible component of pulmonary edema No previous history of heart failure per patient Continue strict I's and O's and fluid restriction Continue home Singulair and breathing treatments every 4 hours Continue IV Rocephin and azithromycin Plan: Echocardiogram showed no evidence of CHF. EF 55%. Continue breathing treatments, abx, and singular. Leukocytosis continues to improve and 02 requirements minimal at this time. # Left hip fracture After ground-level mechanical fall X-ray revealed acute impacted left subcapital Cardiology consulted for preop clearance Continue pain management with oral [place] and IV morphine for breakthrough pain Plan: Cardiology cleared for surgery from cardiac standpoint. Surgery deferred although patient continues to improve and likely candidate for surgical intervention within the coming days . # Polysubstance abuse vp client services consultation. Continue home Seroquel and citalopram . Low dose ativan as needed if withdrawal symptoms develop # Primary hypertension Resume home antihypertensives as tolerated Dr. Santos
[2024-03-23] MEDS: ALBUTEROL/IPRATROPIUM (Duoneb) RT SOL 3 ML NEBU INH ×3 (14:26→22:48)
--- NOTE | 2024-03-23 16:17 | PC.RT ---
sputum sample cup left with pt, she states she is able to produce a sputum sample without needing to be induced.
[2024-03-23] MEDS: QUEtiapine FUMARATE 100 MG TABLET PO (22:03)
[2024-03-23] MEDS: MONTELUKAST SODIUM 10 MG TABLET PO (22:03)
[2024-03-23] MEDS: oxyCODONE/APAP 5/325 TABLET 2 TAB PO (22:05)
--- NOTE | 2024-03-23 22:55 | ESPR_ITS ---
RE: MASOUD EDGE : 1955 DATE OF SERVICE: 03/23/2024 CHIEF COMPLAINT: Pain in the left hip. The patient was admitted to the hospital and was not a candidate for surgery. She developed bilateral pneumonia, which is presently being treated. She is presently on ceftriaxone and azithromycin for community-acquired pneumonia. Yesterday, her white count was 21,000, today is down to 13,000. Pulse oximetry 96% on 3 L. The patient has a number of acute medical problems including acute respiratory failure with hypoxia, which is improving and community acquired pneumonia. BMP was unremarkable on admission. Blood culture is negative. She has been treated with IV Lasix, which was stopped on 03/22/2024. She does have movement disorder and does take medication for that. She continues to use methamphetamine. I would anticipate Sunday or Sunday she would be ready possibly for in situ fixation of left femoral neck fracture. DT: 20:01:08 TT: 22:53:00 Ref: [id number] - TID: [id number]
[2024-03-24] VITALS (14 sets, daily range): BP systolic 105–148; BP diastolic 50–70; PULSE 61–79; RESP 12–24; TEMP 36–36.8; O2SAT 92–100; BMI 31.4
[2024-03-24] MEDS: ALBUTEROL/IPRATROPIUM (Duoneb) RT SOL 3 ML NEBU INH ×6 (02:37→22:55)
[2024-03-24] MEDS: HEPARIN SOD INJ 5000 UNIT/ML VIAL SC ×3 (05:24→21:12)
[2024-03-24 06:00] LABS: Basophils # (Auto) 0.1 Thou/mm3 (0.0-0.2); Basophils % (Auto) 1 % (0-2.5); Eosinophils # (Auto) 1.5 Thou/mm3 (0.0-0.5); Eosinophils % (Auto) 15 % (0-10); Hematocrit 34.3 % (36.0-46.0); Hemoglobin 11.2 g/dL (12.0-16.0); Immature Granulocytes % (Auto) 0 % (0-0); Immature Granulocytes Auto 0.02 Thou/mm3 (0.00-0.00); Lymphocytes # (Auto) 2.2 Thou/mm3 (1.0-4.8); Lymphocytes % (Auto) 22 % (10-50); Mean Corpuscular HGB Conc 32.7 g/dl (31.0-37.0); Mean Corpuscular Hemoglobin 30.4 pg (25.0-35.0); Mean Corpuscular Volume 93 fL (80-100); Monocytes # (Auto) 1.4 Thou/mm3 (0.0-0.8); Monocytes % (Auto) 14 % (0-12); Neutrophils # (Auto) 4.9 Thou/mm3 (1.8-7.7); Neutrophils % (Auto) 49 % (37-80); Nucleated Red Blood Cell % 0 /100 WBC (0); Platelet Count 244 Thou/mm3 (140-440); RDW Standard Deviation 44.7 fL (36.4-46.3); Red Blood Count 3.69 Miln/mm3 (4.00-5.20); White Blood Count 10.1 Thou/mm3 (3.6-11.0)
[2024-03-24 06:38] LABS: Alanine Aminotransferase 11 U/L (10-49); Albumin, Serum 3.5 gm/dL (3.4-4.8); Albumin/Globulin Ratio 1.6 (1.2-2.2); Alkaline Phosphatase 58 U/L (46-116); Anion Gap 5 (7-16); Aspartate Amino Transferase < 10 U/L (0-34); BUN/Creatinine Ratio 29 Ratio (12-20); Bilirubin,Total 0.3 mg/dL (0.3-1.2); Blood Urea Nitrogen 26 mg/dL (9-23); Calcium 9.1 mg/dL (8.3-10.6); Calcium (Corrected) 9.5 mg/dL (8.5-10.1); Carbon Dioxide 30.6 mMol/L (20.0-31.0); Chloride 101 mMol/L (98-107); Creatinine (Component) 0.9 mg/dL (0.6-1.3); Estimated Creatinine Clearance 62.4 mL/min (>60); Globulin 2.2 gm/dL (2.3-3.5); Glucose 90 mg/dL (74-106); Magnesium 2.1 mg/dL (1.6-2.6); Osmolality,Calculated 278 (275-295); Phosphorous 4.2 mg/dL (2.4-5.1); Sodium 137 mMol/L (136-145); Total Protein 5.7 gm/dL (5.7-8.2); eGFR > 60 See Note
[2024-03-24] MEDS: PANTOPRAZOLE 40 MG TABLET PO (08:44)
[2024-03-24] MEDS: cefTRIAXone/D5w 1gm IV premix 50 ML IV (08:44)
[2024-03-24] MEDS: AZITHROMYCIN 250 MG TABLET 500 MG PO (08:44)
[2024-03-24] MEDS: CITALOPRAM 20 MG TABLET 40 MG PO (08:44)
--- NOTE | 2024-03-24 09:35 | ESPR_ITS ---
<Statement entered by Torito Wong MD - 03/24/24 18:39> Patient was seen and examined at the bedside. She was having alot of hip pain. Pain management was adjusred. Dr Craven plan to do Sx or sunday for hip sx. We have given incentive spirometer due to shallow breathing. We will keep patient NPO after midnight for possible Sx zaire. All labs and orders were reviewed. I saw and examined the patient, and I agree with current management stated by Dr Jose Antonio MD,PGY1. Plan of care was discussed with the attending physician and resident physician. Disclaimer: Despite multiple revisions, due to the dictation software being used, the document bellow may not be free of grammatical errors including phonetic/typographic errors. However, this does not deter from our commitment to providing health care in the patient's best interest in mind. Dr. Tori MD, PGY 2 Documentation for date of: 03/24/24 Subjective Subjective Interval history: Patient was seen and examined at bedside this AM. No acute exents overnight. Patient tolerating diet, adequate urine output and mentation is at baseline. Patient states that her SOB is the same as yesterday Currently bicarb down trended to 30.6 from 31.5 Patient had a positive fluid balance of 570 cc in the last 24 hours On exam patient had no signs of lower extremity or sacral edema. Will continue to hold IV diuresis for now Patient is on D3 of ceftriaxone and azithromycin IV for treatment of community- acquired pneumonia. WBC down trended to 10.1 from 13.2 Orthopedic surgeon, Dr. Craven anticipates her surgery either Sunday or Sunday Exam Vital Signs Temp Pulse Resp BP Pulse Ox O2 Del Method O2 Flow Rate 96.8 F 78 17 148/70 H 96 Nasal Cannula 3 03/24/24 07:35 03/24/24 07:35 03/24/24 07:35 03/24/24 07:35 03/24/24 07:35 03/24/24 07:35 03/24/24 07:35 Narrative Exam Constitutional Alert, oriented x 3 and comfortable. Elderly female on O2 via NC HEENT Vision grossly intact. Patent nares. Trachea midline Respiratory Chest normal on inspection and decreased AE throughout lung lynne. No wheeze Cardiovascular S1 and S2 audible, RRR. No murmurs carotid bruit. No gross JVD. Abdominal Soft and non tender to palpation in all quadrants. BS + Genitourinary No bladder tenderness, no flank pain. Normal to palpation Musculoskeletal Extremities tone within normal limits. No LE edema.Left leg shortened and externally rotated Neurological CN II - XII grossly intact. Extremity motor and sensation grossly intact. Skin Warm, dry and intact. No apparent lesions. Psychiatric Patient has good affect, is cooperative Objective Labs 03/25/24 05:39 03/25/24 05:39 Labs: Laboratory Results - last 24 hr 03/24/24 04:22 WBC 10.1 RBC 3.69 L Hgb 11.2 L Hct 34.3 L MCV 93 MCH 30.4 MCHC 32.7 RDW Std Deviation 44.7 Plt Count 244 Neut % (Auto) 49 Lymph % (Auto) 22 [place] % (Auto) 14 H Eos % (Auto) 15 H Baso % (Auto) 1 Neut # (Auto) 4.9 Lymph # (Auto) 2.2 [place] # (Auto) 1.4 H Eos # (Auto) 1.5 H Baso # (Auto) 0.1 Immature Gran # (Auto) 0.02 H Absolute Nucleated RBC 0.00 Immature Gran % 0 Nucleated RBC % 0 Sodium 137 Potassium 4.0 Chloride 101 Carbon Dioxide 30.6 Anion Gap 5 L BUN 26 H Creatinine 0.9 Estim Creat Clear Calc 62.4 eGFR > 60 BUN/Creatinine Ratio 29 H Glucose 90 Calculated Osmolality 278 Calcium 9.1 Corrected Calcium 9.5 Phosphorus 4.2 Magnesium 2.1 Total Bilirubin 0.3 AST < 10 ALT 11 Alkaline Phosphatase 58 Total Protein 5.7 Albumin 3.5 Globulin 2.2 L Albumin/Globulin Ratio 1.6 ABG Interpretation ABG results: 03/21/24 03/21/24 03/21/24 01:04 03:37 10:11 ABG pH 7.38 7.38 ABG pCO2 48 52 H ABG pO2 59 L* 110 H D ABG HCO3 28 H 31 H ABG O2 Saturation 90 L 99 H ABG Base Excess 2 4 H VBG pH 7.47 VBG pCO2 41 VBG pO2 87 H VBG Base Excess 5 H Quality Measures Quality Measures VTE prophylaxis Advance care planning discussed with:: patient Assessment & Plan Assessment Current Active Medications: Generic Name Dose Route Start Last Admin Trade Name Freq PRN Reason Stop Dose Admin Acetaminophen 650 mg 03/21/24 08:48 Acetaminophen 325 Mg Tablet PO 04/19/24 22:10 Q6H PRN PAIN 1-3 OR FEVER > 101 Albuterol/Ipratropium 3 ml 03/23/24 15:00 03/24/24 06:48 Albuterol/Ipratropium (Duoneb) Rt Pooja 3 Ml Nebu INH 04/22/24 14:59 3 ml Q4HRRT MARY BETH Administration Azithromycin 500 mg 03/22/24 09:00 03/24/24 08:44 Azithromycin 250 Mg Tablet PO 03/29/24 08:59 500 mg QDAY MARY BETH Administration Protocol Citalopram Hydrobromide 40 mg 03/21/24 10:45 03/24/24 08:44 Citalopram 20 Mg Tablet PO 04/20/24 10:44 40 mg QDAY MARY BETH Administration Heparin Sodium (Porcine) 5,000 unit 03/22/24 09:00 03/24/24 05:24 Heparin Sod Inj 5000 Unit/Ml Vial SC 04/05/24 08:59 5,000 unit Q8HR MARY BETH Administration Ceftriaxone Sodium/Dextrose 50 mls @ 100 mls/hr 03/21/24 10:42 03/24/24 08:44 Rocephin/D5w 1gm Iv Premix IV 03/28/24 10:41 100 mls/hr QDAY MARY BETH Administration Montelukast Sodium 10 mg 03/21/24 21:00 03/23/24 22:03 Montelukast Sodium 10 Mg Tablet PO 04/20/24 20:59 10 mg HS MARY BETH Administration Morphine Sulfate 2 mg 03/21/24 00:59 03/23/24 23:15 Morphine Sulf Inj 10 Mg/Ml Vial IVP 03/25/24 22:10 2 mg Q3H PRN Administration PAIN SCALE 7-10 (Severe Ondansetron HCl 4 mg 03/20/24 22:11 03/21/24 01:22 Ondansetron Inj 2 Mg/Ml Inj 2 Ml IV 04/19/24 22:10 4 mg Q6H PRN Administration NAUSEA OR VOMITING Protocol Oxycodone/Acetaminophen 2 tab 03/23/24 15:06 03/23/24 22:05 Oxycodone/Apap 5/325 Tablet PO 03/25/24 22:10 2 tab Q6H PRN Administration PAIN SCALE 4-6 (Moderate Pantoprazole Sodium 40 mg 03/21/24 09:00 03/24/24 08:44 Pantoprazole 40 Mg Tablet PO 04/20/24 08:59 40 mg QDAY MARY BETH Administration Quetiapine Fumarate 100 mg 03/21/24 21:00 03/23/24 22:03 Quetiapine Fumarate 100 Mg Tablet PO 04/20/24 20:59 100 mg HS MARY BETH Administration Plan 68-year-old female with past medical history of meth use, asthma, psychiatric disorders, and HFpEF (50 to 55% EF 2020) was admitted to the hospital on 03/20/2024 due to left hip fracture secondary to mechanical fall and acute respiratory failure with hypoxia secondary to community-acquired pneumonia with asthma exacerbation versus CHF exacerbation. 1. Acute respiratory failure with hypoxia Secondary to 2. Community-acquired pneumonia versus CHF exacerbation. 3. Acute decompensated chronic diastolic congestive heart failure [55%] On admission patient denies any symptoms of chest pain/pressure or palpitations. Also denied any SOB, orthopnea or PND. On exam patient had bilateral lower extremity edema which has now resolved On admission chest x-ray was significant bilateral pulmonary edema with increased vascular markings and extensive reticulonodular opacities. BNP on admission was insignificant at 68 troponin was also negative. Influenza A and B were negative Blood cultures from 03/20 no bacterial growth after 48 hours preliminary. Urine culture from 03/20 grew ESBL E. coli. CURB 65 =2 points; moderate risk: 6.8% 30-day mortality. Inpatient vs outpatient treatment PSI/PORT score = 89 point; Risk class III , 0.9-20% mortality. Outpatient or inpatient treatment Transthoracic echocardiogram completed on 03/21 findings include: Normal LV size and function. Mid anterior septal bounce. Estimated EF 55% Normal RV size and function. Trace MR, TR. Patient was on diuresis with furosemide IV 40 Mg IV daily which was discontinued on 03/22 due to contraction alkalosis. Currently patient has no lower extremity or sacral edema and lungs have scattered wheezes on exam, no crackles. Patient had a fluid balance of +810 cc in the past 24 hours Plan: ? D3 ceftriaxone and azithromycin IV started on [03/22? - Sputum culture ordered and RSV ? Continue supplemental O2 as necessary ? Continue to hold IV diuresis, patient euvolemic on exam ? Consider starting patient on FREDO/ARB along with beta-veronica as part of GDMT for heart failure. Pending cardiology recommendations. ? Cardiology consulted, appreciate recommendations. 3. Asthma exacerbation - resolving Patient has history of asthma and on montelukast 10 Mg p.o. every afternoon and albuterol inhaler as needed at home. On admission patient denied any SOB, cannot complete full sentences. On exam she has scattered wheezes heard throughout bilateral lung lynne. In the ED patient received Solu-Medrol 125 Mg IV x 1 and prednisone 40 Mg p.o. x 1 Today on exam patient no longer has wheeze, but decrease AE throughout lung lynne Plan: - Incentive spirometer ? Continue supplemental O2 as necessary to maintain SpO2 >94% ? Increase DuoNebs to Q8 hourly 4. Leukocytosis - improving On admission WBC 16.9 up trended to 21.4 and currently down trended to 10.1 DDx: Community-acquired pneumonia, asthma exacerbation, asymptomatic bacteriuria, secondary to steroid use. Plan: ? Continue to monitor CBC 5. Asymptomatic bacteriuria Patient denies any LUTS including dysuria, hesitancy, frequency or nocturia. Urinalysis was positive for bacteria and nitrates and urine culture significant for E. coli ESBL. 6. Choreoathetotic movements?resolved 7. History of psychiatric condition In the ED patient had choreiform movements which have now resolved. Patient states that this is normal for her and knows that this is a side effect of her antipsychotic medication. DDx: Drug intoxication, Beckham's, sending him chorea, hyper/hypothyroidism On admission U tox significant for methamphetamine Patient received Benadryl IV in the ED and movement subsided Home medication quetiapine 100 Mg p.o. at bedtime and citalopram 40 Mg p.o. daily Possibly due to medication side effect or intoxication with methamphetamines. Will continue to monitor patient Plan: ? Continue home medication quetiapine 100 Mg p.o. at bedtime and citalopram 40 Mg p.o. daily 8. Acute impacted left subcapital hip fracture Secondary to 9. Ground-level fall Patient presented after ground-level fall from tripping in her house. On admission hip/pelvis x-ray showed acute impacted left subcapital hip fracture On exam patient's left leg shortened and externally rotated. Initially cardiology cleared for surgery but then deemed her onsets in light of treatment for pneumonia and elevated WBC. Plan: ? Continue pain management with morphine 2 Mg IV Q3 hourly as needed for severe pain -oxycodone/acetaminophen 5/25 2 tab p.o. Q6 hourly for moderate to severe pain ? Continue DVT prophylaxis with heparin SC ? Continue rest of management as per orthopedics, Dr. Craven. 10. History of methamphetamine use Patient initially denied methamphetamine use, however U tox was positive for methamphetamine on admission. Patient counseled on methamphetamine cessation. Patient agrees 11. Essential hypertension On admission BP 178/85. Currently BP 124/56 Home medication valsartan/HCTZ 320/25 p.o. daily Plan: ? Once BP allows to resume patient's home medication Health maintenance: Disposition: IV antibiotics for CAP. Awaiting hip surgery Diet: Cardiac Lines: pIVs GI Prophylaxis: None Thrombo Prophylaxis: Heparin Code status: FULL CODE Plan of care discussed with Attending Dr. Santos and PGY2 Dr. Tori Muñiz MD PGY 1 Attending Provider Attestation/Addendum I have examined the patient, reviewed labs and imaging findings, discussed the case with the resident(s), and reviewed entered orders. I agree with the plan of care as outlined in this note, with these additional summaries/recommendations: # Acute hypoxic respiratory failure # Community-acquired pneumonia # History of COPD Presented with shortness of breath, minimal wheezing, and productive cough Chest x-ray significant for bilateral pneumonia with possible component of pulmonary edema No previous history of heart failure per patient Continue strict I's and O's and fluid restriction Continue home Singulair and breathing treatments every 4 hours Continue IV Rocephin and azithromycin Plan: Echocardiogram showed no evidence of CHF. EF 55%. Continue breathing treatments, abx, and singular. Leukocytosis now resolved and 02 requirements minimal at this time. # Left hip fracture After ground-level mechanical fall X-ray revealed acute impacted left subcapital Cardiology consulted for preop clearance Continue pain management with oral [place] and IV morphine for breakthrough pain Plan: Cardiology cleared for surgery from cardiac standpoint. Per surgery likely surgical intervention tomorrow 03/25 or 03/26. Increase pain management today as patient is reporting significant pain. # Polysubstance abuse nutrition services associate consultation. Continue home Seroquel and citalopram . Low dose ativan as needed if withdrawal symptoms develop # Primary hypertension Home antihypertensives as tolerated Dr. Santos
--- NOTE | 2024-03-24 10:35 | PC.SS ---
SS follow up note; Patient is pending Surgery possible Tues or Wed.
[2024-03-24] MEDS: MORPHINE SULF INJ 10 MG/ML VIAL 2 MG IVP (10:59)
[2024-03-24 11:35] LABS: Respiratory Syncytial Virus Ag Negative (Negative)
[2024-03-24] MEDS: oxyCODONE/APAP 5/325 TABLET 2 TAB PO ×2 (12:31→21:59)
--- NOTE | 2024-03-24 15:07 | ESPR_ITS ---
Documentation for date of: 03/24/24 Subjective Subjective Interval history: no cardiac symtoms being treated for pneumonia Exam Vital Signs Temp Pulse Resp BP Pulse Ox O2 Del Method O2 Flow Rate 96.9 F 73 18 131/52 H 96 Nasal Cannula 3 03/24/24 12:00 03/24/24 12:00 03/24/24 12:00 03/24/24 12:00 03/24/24 12:00 03/24/24 12:00 03/24/24 12:00 Routine HEENT Exam Head: Present normocephalic and atraumatic Eye: Present EOMI and PERRL ENT: Present mucous membranes moist Routine Neck Exam Neck: Present supple and trachea midline Routine Respiratory Exam Respiratory: Present chest non-tender, lungs clear, normal breath sounds and no resp distress Routine Cardiovascular Exam Cardiovascular: Present RRR Routine Abdominal Exam Abdominal: Present soft and normoactive bowel sounds Routine Extremities Exam Extremities: Present full ROM Routine Skin Exam Skin: Present intact, dry and warm Routine Neurological Exam Neurological: Present alert, oriented X3 and CN II-XII intact Routine Psychiatric Exam Psychiatric: Present normal affect and normal thought process Objective Labs 03/24/24 04:22 03/24/24 04:22 Labs: Laboratory Results - last 24 hr 03/24/24 03/24/24 04:22 11:04 WBC 10.1 RBC 3.69 L Hgb 11.2 L Hct 34.3 L MCV 93 MCH 30.4 MCHC 32.7 RDW Std Deviation 44.7 Plt Count 244 Neut % (Auto) 49 Lymph % (Auto) 22 [place] % (Auto) 14 H Eos % (Auto) 15 H Baso % (Auto) 1 Neut # (Auto) 4.9 Lymph # (Auto) 2.2 [place] # (Auto) 1.4 H Eos # (Auto) 1.5 H Baso # (Auto) 0.1 Immature Gran # (Auto) 0.02 H Absolute Nucleated RBC 0.00 Immature Gran % 0 Nucleated RBC % 0 Sodium 137 Potassium 4.0 Chloride 101 Carbon Dioxide 30.6 Anion Gap 5 L BUN 26 H Creatinine 0.9 Estim Creat Clear Calc 62.4 eGFR > 60 BUN/Creatinine Ratio 29 H Glucose 90 Calculated Osmolality 278 Calcium 9.1 Corrected Calcium 9.5 Phosphorus 4.2 Magnesium 2.1 Total Bilirubin 0.3 AST < 10 ALT 11 Alkaline Phosphatase 58 Total Protein 5.7 Albumin 3.5 Globulin 2.2 L Albumin/Globulin Ratio 1.6 RSV Rapid Negative ABG Interpretation ABG results: 03/21/24 03/21/24 03/21/24 01:04 03:37 10:11 ABG pH 7.38 7.38 ABG pCO2 48 52 H ABG pO2 59 L* 110 H D ABG HCO3 28 H 31 H ABG O2 Saturation 90 L 99 H ABG Base Excess 2 4 H VBG pH 7.47 VBG pCO2 41 VBG pO2 87 H VBG Base Excess 5 H Assessment & Plan A&P Narrative pt currently on antibiotics for pneumonia WBC elevated tody agree with holding surgery Time Spent With Patient Time: Total time spent is greater than 50% in coordination of care (as documented) at patient's floor/unit and/or counseling patient:
[2024-03-24] MEDS: MONTELUKAST SODIUM 10 MG TABLET PO (21:13)
[2024-03-24] MEDS: QUEtiapine FUMARATE 100 MG TABLET PO (21:13)
--- NOTE | 2024-03-24 21:41 | PD.ORTHCONPN ---
Subjective Subjective Brief History: Patient was at her house and fell. After the fall she had pain in her left hip. She was able to ambulate with a cane. She had Thanksgiving with her daughter and was brought to the emergency room with severe pain left hip. No pain in her upper extremities left lower extremities. She does have pain in her left hip no pain left knee left ankle or foot Narrative: No new complaints. She is alert tonight. Continues with pain left hip Exam Vital Signs Temp Pulse Resp BP Pulse Ox O2 Del Method O2 Flow Rate 97.5 F 74 24 H 141/67 H 96 Nasal Cannula 3 03/24/24 20:00 03/24/24 20:00 03/24/24 20:00 03/24/24 20:00 03/24/24 20:00 03/24/24 20:00 03/24/24 20:00 Vital signs stable Narrative Exam Patient moves both upper extremities right lower extremity. Has pain left hip Objective - Ortho Labs 03/24/24 04:22 03/24/24 04:22 Labs: Laboratory Results - last 24 hr 03/24/24 03/24/24 04:22 11:04 WBC 10.1 RBC 3.69 L Hgb 11.2 L Hct 34.3 L MCV 93 MCH 30.4 MCHC 32.7 RDW Std Deviation 44.7 Plt Count 244 Neut % (Auto) 49 Lymph % (Auto) 22 [place] % (Auto) 14 H Eos % (Auto) 15 H Baso % (Auto) 1 Neut # (Auto) 4.9 Lymph # (Auto) 2.2 [place] # (Auto) 1.4 H Eos # (Auto) 1.5 H Baso # (Auto) 0.1 Immature Gran # (Auto) 0.02 H Absolute Nucleated RBC 0.00 Immature Gran % 0 Nucleated RBC % 0 Sodium 137 Potassium 4.0 Chloride 101 Carbon Dioxide 30.6 Anion Gap 5 L BUN 26 H Creatinine 0.9 Estim Creat Clear Calc 62.4 eGFR > 60 BUN/Creatinine Ratio 29 H Glucose 90 Calculated Osmolality 278 Calcium 9.1 Corrected Calcium 9.5 Phosphorus 4.2 Magnesium 2.1 Total Bilirubin 0.3 AST < 10 ALT 11 Alkaline Phosphatase 58 Total Protein 5.7 Albumin 3.5 Globulin 2.2 L Albumin/Globulin Ratio 1.6 RSV Rapid Negative White count coming down ABG Interpretation ABG results: 03/21/24 03/21/24 03/21/24 01:04 03:37 10:11 ABG pH 7.38 7.38 ABG pCO2 48 52 H ABG pO2 59 L* 110 H D ABG HCO3 28 H 31 H ABG O2 Saturation 90 L 99 H ABG Base Excess 2 4 H VBG pH 7.47 VBG pCO2 41 VBG pO2 87 H VBG Base Excess 5 H Assessment & Plan Assessment Additional comments: Discussed surgery. Will schedule for Sunday. Will repeat one-view portable left hip tomorrow Plan Surgery scheduled for Sunday Documentation for date of: 03/24/24
--- NOTE | 2024-03-24 21:43 | XR_ITS ---
Examination: Left hip 2 views Technique one AP lateral left hip 2 views Exam date and time: March 24, 2024 1004 hrs. Indications: Acute impacted left subcapital hip fracture March 20, 2024 Findings: No change in acute impacted left subcapital fracture Severe osteopenia Significant osteoarthritis left hip joint Impression: Stable left subcapital hip fracture
[2024-03-25] VITALS (10 sets, daily range): BP systolic 95–153; BP diastolic 54–82; PULSE 63–82; RESP 12–22; TEMP 36.1–36.9; O2SAT 91–100
[2024-03-25] MEDS: oxyCODONE/APAP 5/325 TABLET 2 TAB PO ×3 (05:20→19:45)
[2024-03-25] MEDS: HEPARIN SOD INJ 5000 UNIT/ML VIAL SC ×3 (05:20→21:07)
[2024-03-25 06:05] LABS: Basophils # (Auto) 0.1 Thou/mm3 (0.0-0.2); Basophils % (Auto) 1 % (0-2.5); Eosinophils # (Auto) 1.7 Thou/mm3 (0.0-0.5); Eosinophils % (Auto) 19 % (0-10); Hemoglobin 11.7 g/dL (12.0-16.0); Immature Granulocytes % (Auto) 1 % (0-0); Immature Granulocytes Auto 0.05 Thou/mm3 (0.00-0.00); Lymphocytes # (Auto) 2.5 Thou/mm3 (1.0-4.8); Lymphocytes % (Auto) 28 % (10-50); Mean Corpuscular HGB Conc 32.5 g/dl (31.0-37.0); Mean Corpuscular Hemoglobin 30.4 pg (25.0-35.0); Mean Corpuscular Volume 94 fL (80-100); Monocytes # (Auto) 1.1 Thou/mm3 (0.0-0.8); Monocytes % (Auto) 12 % (0-12); Neutrophils # (Auto) 3.5 Thou/mm3 (1.8-7.7); Neutrophils % (Auto) 39 % (37-80); Nucleated Red Blood Cell % 0 /100 WBC (0); Platelet Count 249 Thou/mm3 (140-440); RDW Standard Deviation 45.2 fL (36.4-46.3); Red Blood Count 3.85 Miln/mm3 (4.00-5.20); White Blood Count 8.9 Thou/mm3 (3.6-11.0)
[2024-03-25 06:24] LABS: Partial Thromboplastin Time 31.9 Seconds (22.0-36.0); Prothrombin Time 10.9 Seconds (9.0-12.2)
[2024-03-25 06:49] LABS: Alanine Aminotransferase 13 U/L (10-49); Albumin, Serum 3.6 gm/dL (3.4-4.8); Albumin/Globulin Ratio 1.5 (1.2-2.2); Alkaline Phosphatase 56 U/L (46-116); Anion Gap 5 (7-16); BUN/Creatinine Ratio 23 Ratio (12-20); Bilirubin,Total 0.4 mg/dL (0.3-1.2); Blood Urea Nitrogen 21 mg/dL (9-23); Calcium 9.2 mg/dL (8.3-10.6); Calcium (Corrected) 9.5 mg/dL (8.5-10.1); Carbon Dioxide 30.3 mMol/L (20.0-31.0); Chloride 101 mMol/L (98-107); Creatinine (Component) 0.9 mg/dL (0.6-1.3); Estimated Creatinine Clearance 61.2 mL/min (>60); Globulin 2.4 gm/dL (2.3-3.5); Glucose 90 mg/dL (74-106); Magnesium 2.1 mg/dL (1.6-2.6); Osmolality,Calculated 274 (275-295); Phosphorous 3.9 mg/dL (2.4-5.1); Potassium 4.2 mMol/L (3.4-5.1); Sodium 136 mMol/L (136-145); eGFR > 60 See Note
[2024-03-25] MEDS: ALBUTEROL/IPRATROPIUM (Duoneb) RT SOL 3 ML NEBU INH ×2 (06:49→15:05)
[2024-03-25 06:56] LABS: Aspartate Amino Transferase 15 U/L (0-34)
[2024-03-25] MEDS: CITALOPRAM 20 MG TABLET 40 MG PO (08:23)
[2024-03-25] MEDS: PANTOPRAZOLE 40 MG TABLET PO (08:23)
[2024-03-25] MEDS: cefTRIAXone/D5w 1gm IV premix 50 ML IV (08:24)
[2024-03-25 14:25] LABS: Cocci Serology, IgM Negative (Negative)
--- NOTE | 2024-03-25 14:46 | ESPR_ITS ---
<Statement entered by Torito Wong MD - 03/25/24 16:15> Patient was seen and examined at the bedside. Patient is feeling better however has mild hip pain. Patient is pending for surgery for tomorrow. Will be n.p.o. after midnight. Ortho following the case. Recommended to continue with incentive spirometry. All labs and orders were reviewed. I saw and examined the patient, and I agree with current management stated by Dr Jose Antonio MD,PGY1. Plan of care was discussed with the attending physician and resident physician. Disclaimer: Despite multiple revisions, due to the dictation software being used, the document bellow may not be free of grammatical errors including phonetic/typographic errors. However, this does not deter from our commitment to providing health care in the patient's best interest in mind. Dr. Tori MD, PGY 2 Documentation for date of: 03/25/24 Subjective Subjective Interval history: Patient was seen and examined at bedside this AM. No acute exents overnight. Patient tolerating diet, adequate urine output and mentation is at baseline. Patient states that her SOB is the same as yesterday Currently bicarb down trended to 30.3 from 30.6 Patient had a positive fluid balance of 250 cc in the last 24 hours On exam patient had no signs of lower extremity or sacral edema. Will continue to hold IV diuresis for now Patient completed 5-day course of ceftriaxone and azithromycin IV for treatment of communication acquired pneumonia on 03/25 WBC down trended to 8.9 from 10.1 Sputum Gram stain grew rare WBC and 1+ yeast Patient had repeat left hip x-ray yesterday which showed stable impacted left subcapital fracture Orthopedic surgeon, Dr. Craven plans for fixation of hip fracture tomorrow Exam Vital Signs Temp Pulse Resp BP Pulse Ox O2 Del Method O2 Flow Rate 97.0 F 64 17 146/62 H 94 L Nasal Cannula 1 03/25/24 12:00 03/25/24 12:00 03/25/24 12:00 03/25/24 12:00 03/25/24 12:00 03/25/24 12:00 03/25/24 12:00 Narrative Exam Constitutional Alert, oriented x 3 and comfortable. Elderly female on O2 via NC HEENT Vision grossly intact. Patent nares. Trachea midline Respiratory Chest normal on inspection and decreased AE throughout lung lynne. No wheeze Cardiovascular S1 and S2 audible, RRR. No murmurs carotid bruit. No gross JVD. Abdominal Soft and non tender to palpation in all quadrants. BS + Genitourinary No bladder tenderness, no flank pain. Normal to palpation Musculoskeletal Extremities tone within normal limits. No LE edema.Left leg shortened and externally rotated Neurological CN II - XII grossly intact. Extremity motor and sensation grossly intact. Skin Warm, dry and intact. No apparent lesions. Psychiatric Patient has good affect, is cooperative Objective Labs 03/25/24 05:39 03/25/24 05:39 Labs: Laboratory Results - last 24 hr 03/25/24 03/25/24 05:39 11:41 WBC 8.9 RBC 3.85 L Hgb 11.7 L Hct 36.0 MCV 94 MCH 30.4 MCHC 32.5 RDW Std Deviation 45.2 Plt Count 249 Neut % (Auto) 39 Lymph % (Auto) 28 [place] % (Auto) 12 Eos % (Auto) 19 H Baso % (Auto) 1 Neut # (Auto) 3.5 Lymph # (Auto) 2.5 [place] # (Auto) 1.1 H Eos # (Auto) 1.7 H Baso # (Auto) 0.1 Immature Gran # (Auto) 0.05 H Absolute Nucleated RBC 0.00 Immature Gran % 1 H Nucleated RBC % 0 PT 10.9 INR 1.0 APTT 31.9 Sodium 136 Potassium 4.2 Chloride 101 Carbon Dioxide 30.3 Anion Gap 5 L BUN 21 Creatinine 0.9 Estim Creat Clear Calc 61.2 eGFR > 60 BUN/Creatinine Ratio 23 H Glucose 90 Calculated Osmolality 274 L Calcium 9.2 Corrected Calcium 9.5 Phosphorus 3.9 Magnesium 2.1 Total Bilirubin 0.4 AST 15 ALT 13 Alkaline Phosphatase 56 Total Protein 6.0 Albumin 3.6 Globulin 2.4 Albumin/Globulin Ratio 1.5 Coccidioides IgM Ab Negative ABG Interpretation ABG results: 03/21/24 03/21/24 03/21/24 01:04 03:37 10:11 ABG pH 7.38 7.38 ABG pCO2 48 52 H ABG pO2 59 L* 110 H D ABG HCO3 28 H 31 H ABG O2 Saturation 90 L 99 H ABG Base Excess 2 4 H VBG pH 7.47 VBG pCO2 41 VBG pO2 87 H VBG Base Excess 5 H Quality Measures Quality Measures VTE prophylaxis Advance care planning discussed with:: patient Assessment & Plan Assessment Current Active Medications: Generic Name Dose Route Start Last Admin Trade Name Freq PRN Reason Stop Dose Admin Acetaminophen 650 mg 03/21/24 08:48 Acetaminophen 325 Mg Tablet PO 04/19/24 22:10 Q6H PRN PAIN 1-3 OR FEVER > 101 Albuterol/Ipratropium 3 ml 03/24/24 23:00 03/25/24 06:49 Albuterol/Ipratropium (Duoneb) Rt Pooja 3 Ml Nebu INH 04/23/24 22:59 3 ml Q8HRRT MARY BETH Administration Citalopram Hydrobromide 40 mg 03/21/24 10:45 03/25/24 08:23 Citalopram 20 Mg Tablet PO 04/20/24 10:44 40 mg QDAY MARY BETH Administration Heparin Sodium (Porcine) 5,000 unit 03/22/24 09:00 03/25/24 13:30 Heparin Sod Inj 5000 Unit/Ml Vial SC 04/05/24 08:59 5,000 unit Q8HR MARY BETH Administration Montelukast Sodium 10 mg 03/21/24 21:00 03/24/24 21:13 Montelukast Sodium 10 Mg Tablet PO 04/20/24 20:59 10 mg HS MARY BETH Administration Morphine Sulfate 4 mg 03/24/24 20:44 Morphine Sulf Inj 10 Mg/Ml Vial IVP 03/25/24 22:10 Q3H PRN PAIN SCALE 7-10 (Severe Ondansetron HCl 4 mg 03/20/24 22:11 03/21/24 01:22 Ondansetron Inj 2 Mg/Ml Inj 2 Ml IV 04/19/24 22:10 4 mg Q6H PRN Administration NAUSEA OR VOMITING Protocol Oxycodone/Acetaminophen 2 tab 03/23/24 15:06 03/25/24 12:03 Oxycodone/Apap 5/325 Tablet PO 03/25/24 22:10 2 tab Q6H PRN Administration PAIN SCALE 4-6 (Moderate Pantoprazole Sodium 40 mg 03/21/24 09:00 03/25/24 08:23 Pantoprazole 40 Mg Tablet PO 04/20/24 08:59 40 mg QDAY MARY BETH Administration Quetiapine Fumarate 100 mg 03/21/24 21:00 03/24/24 21:13 Quetiapine Fumarate 100 Mg Tablet PO 04/20/24 20:59 100 mg HS MARY BETH Administration Sennosides 1 tab 03/25/24 14:00 Senna Tablet PO 04/24/24 13:59 QDAY [facility] Protocol Plan 68-year-old female with past medical history of meth use, asthma, psychiatric disorders, and HFpEF (50 to 55% EF 2020) was admitted to the hospital on 03/20/2024 due to left hip fracture secondary to mechanical fall and acute respiratory failure with hypoxia secondary to community-acquired pneumonia with asthma exacerbation versus CHF exacerbation. 1. Acute respiratory failure with hypoxia - resolving Secondary to 2. Community-acquired pneumonia 3. CHF exacerbation ruled out 4. Chronic diastolic congestive heart failure [55%] On admission patient denies any symptoms of chest pain/pressure or palpitations. Also denied any SOB, orthopnea or PND. On exam patient had bilateral lower extremity edema which has now resolved On admission chest x-ray was significant bilateral pulmonary edema with increased vascular markings and extensive reticulonodular opacities. BNP on admission was insignificant at 68 troponin was also negative. Influenza A and B were negative as well as RSV negative Blood cultures from 03/20 no bacterial growth after 48 hours preliminary. Urine culture from 03/20 grew ESBL E. coli. Sputum Gram stain grew occasional WBCs and 1+ yeast CURB 65 =2 points; moderate risk: 6.8% 30-day mortality. Inpatient vs outpatient treatment PSI/PORT score = 89 point; Risk class III , 0.9-20% mortality. Outpatient or inpatient treatment Transthoracic echocardiogram completed on 03/21 findings include: Normal LV size and function. Mid anterior septal bounce. Estimated EF 55% Normal RV size and function. Trace MR, TR. Patient was on diuresis with furosemide IV 40 Mg IV daily which was discontinued on 03/22 due to contraction alkalosis. Currently patient has no lower extremity or sacral edema and lungs have scattered wheezes on exam, no crackles. Patient had a fluid balance of + 250 cc in the past 24 hours Plan: ? Completed 5 days of ceftriaxone and azithromycin IV from [03/21 - 03/25] - Cocci serology ordered due to 1+ yeast on Gram stain ? Continue supplemental O2 as necessary ? Continue to hold IV diuresis, patient euvolemic on exam ? Consider starting patient on FREDO/ARB along with beta-veronica as part of GDMT for heart failure. Pending cardiology recommendations. ? Cardiology consulted, appreciate recommendations. 3. Asthma exacerbation -resolved Patient has history of asthma and on montelukast 10 Mg p.o. every afternoon and albuterol inhaler as needed at home. On admission patient denied any SOB, cannot complete full sentences. On exam she has scattered wheezes heard throughout bilateral lung lynne. In the ED patient received Solu-Medrol 125 Mg IV x 1 and prednisone 40 Mg p.o. x 1 Today on exam patient no longer has wheeze, but decrease AE throughout lung lynne Plan: - Incentive spirometer ? Continue supplemental O2 as necessary to maintain SpO2 >94% ? Increase DuoNebs to as needed 4. Leukocytosis - improving On admission WBC 16.9 up trended to 21.4 and currently down trended to 8.9 DDx: Community-acquired pneumonia, asthma exacerbation, asymptomatic bacteriuria, secondary to steroid use. Plan: ? Continue to monitor CBC 5. Asymptomatic bacteriuria Patient denies any LUTS including dysuria, hesitancy, frequency or nocturia. Urinalysis was positive for bacteria and nitrates and urine culture significant for E. coli ESBL. 6. Choreoathetotic movements?resolved 7. History of psychiatric condition In the ED patient had choreiform movements which have now resolved. Patient states that this is normal for her and knows that this is a side effect of her antipsychotic medication. DDx: Drug intoxication, [place], sending him chorea, hyper/hypothyroidism On admission U tox significant for methamphetamine Patient received Benadryl IV in the ED and movement subsided Home medication quetiapine 100 Mg p.o. at bedtime and citalopram 40 Mg p.o. daily Possibly due to medication side effect or intoxication with methamphetamines. Will continue to monitor patient Plan: ? Continue home medication quetiapine 100 Mg p.o. at bedtime and citalopram 40 Mg p.o. daily 8. Acute impacted left subcapital hip fracture Secondary to 9. Ground-level fall Patient presented after ground-level fall from tripping in her house. On admission hip/pelvis x-ray showed acute impacted left subcapital hip fracture On exam patient's left leg shortened and externally rotated. Initially cardiology cleared for surgery but then deemed her unfit in light of treatment for pneumonia and elevated WBC. Patient had repeat left hip x-ray yesterday which showed stable impacted left subcapital fracture Cardiology and orthopedics now cleared patient for surgery Plan: ? Continue pain management with morphine 2 Mg IV Q3 hourly as needed for severe pain -oxycodone/acetaminophen 5/25 2 tab p.o. Q6 hourly for moderate to severe pain ? Continue DVT prophylaxis with heparin SC ? N.p.o. from midnight ? Patient scheduled for fixation of left hip fracture tomorrow ? Continue rest of management as per orthopedics, Dr. Craven. 10. History of methamphetamine use Patient initially denied methamphetamine use, however U tox was positive for methamphetamine on admission. Patient counseled on methamphetamine cessation. Patient agrees 11. Essential hypertension On admission BP 178/85. Currently BP 141/72 Home medication valsartan/HCTZ 320/25 p.o. daily Plan: ? 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 Awaiting hip surgery scheduled for tomorrow Diet: Cardiac Lines: pIVs GI Prophylaxis: None Thrombo Prophylaxis: Heparin Code status: FULL CODE Plan of care discussed with Attending Dr. Santos and PGY2 Dr. Tori Muñiz MD PGY 1 Attending Provider Attestation/Addendum I have examined the patient, reviewed labs and imaging findings, discussed the case with the resident(s), and reviewed entered orders. I agree with the plan of care as outlined in this note, with these additional summaries/recommendations: Patient seen at bedside. No acute overnight events. Continue antibiotics for bilateral pneumonia likely secondary to gram-negative rods. On minimal O2 at this time we will continue to wean. Continue Singulair and breathing treatments for history of COPD. Patient will go for surgical correction of left hip fracture tomorrow with orthopedics. N.p.o. after midnight and coags in AM. Repeat hematology and chemistry panel in AM. Dr. Santos
--- NOTE | 2024-03-25 14:56 | PC.SS ---
Rounding note; Patient will have surgery tomorrow.
[2024-03-25] MEDS: LACTULOSE SYRUP 20 GM/30 ML UDC PO (15:52)
[2024-03-25] MEDS: SENNA TABLET 1 TAB PO (15:52)
--- NOTE | 2024-03-25 19:27 | CONPN_ITS ---
Subjective Subjective Brief History: Patient was at her house and fell. After the fall she had pain in her left hip. She was able to ambulate with a cane. She had Thanksgiving with her daughter and was brought to the emergency room with severe pain left hip. No pain in her upper extremities left lower extremities. She does have pain in her left hip no pain left knee left ankle or foot Narrative: Continued pain left hip. No new complaints Exam Vital Signs Temp Pulse Resp BP Pulse Ox O2 Del Method O2 Flow Rate 97.1 F 70 18 144/63 H 91 L Nasal Cannula 1 03/25/24 16:00 03/25/24 16:00 03/25/24 16:00 03/25/24 16:00 03/25/24 16:00 03/25/24 12:00 03/25/24 15:06 Blood pressure 144/63, pulse ox 91% Narrative Exam Alert and oriented. Pain left hip unchanged. No new complaints Objective - Ortho Labs 03/25/24 05:39 03/25/24 05:39 Labs: Laboratory Results - last 24 hr 03/25/24 03/25/24 05:39 11:41 WBC 8.9 RBC 3.85 L Hgb 11.7 L Hct 36.0 MCV 94 MCH 30.4 MCHC 32.5 RDW Std Deviation 45.2 Plt Count 249 Neut % (Auto) 39 Lymph % (Auto) 28 [place] % (Auto) 12 Eos % (Auto) 19 H Baso % (Auto) 1 Neut # (Auto) 3.5 Lymph # (Auto) 2.5 [place] # (Auto) 1.1 H Eos # (Auto) 1.7 H Baso # (Auto) 0.1 Immature Gran # (Auto) 0.05 H Absolute Nucleated RBC 0.00 Immature Gran % 1 H Nucleated RBC % 0 PT 10.9 INR 1.0 APTT 31.9 Sodium 136 Potassium 4.2 Chloride 101 Carbon Dioxide 30.3 Anion Gap 5 L BUN 21 Creatinine 0.9 Estim Creat Clear Calc 61.2 eGFR > 60 BUN/Creatinine Ratio 23 H Glucose 90 Calculated Osmolality 274 L Calcium 9.2 Corrected Calcium 9.5 Phosphorus 3.9 Magnesium 2.1 Total Bilirubin 0.4 AST 15 ALT 13 Alkaline Phosphatase 56 Total Protein 6.0 Albumin 3.6 Globulin 2.4 Albumin/Globulin Ratio 1.5 Coccidioides IgM Ab Negative White count 8900, hemoglobin 1.9 creatinine 0.9 ABG Interpretation ABG results: 03/21/24 03/21/24 03/21/24 01:04 03:37 10:11 ABG pH 7.38 7.38 ABG pCO2 48 52 H ABG pO2 59 L* 110 H D ABG HCO3 28 H 31 H ABG O2 Saturation 90 L 99 H ABG Base Excess 2 4 H VBG pH 7.47 VBG pCO2 41 VBG pO2 87 H VBG Base Excess 5 H Assessment & Plan Assessment Additional comments: Repeat x-rays done 12 showed no change in alignment of the impacted femoral neck fracture Plan In situ pinning left femoral neck fracture. Risks were explained including the possibility infection need for further surgery deep vein thrombosis pulmonary embolus told her there is a very good chance she will have a limp afterwards. The big reason to do the pinning is to prevent displacement of the femoral neck fracture. Documentation for date of: 03/25/24
[2024-03-25] MEDS: QUEtiapine FUMARATE 100 MG TABLET PO (21:08)
[2024-03-25] MEDS: MONTELUKAST SODIUM 10 MG TABLET PO (21:08)
[2024-03-26] VITALS (18 sets, daily range): BP systolic 122–175; BP diastolic 55–113; PULSE 61–97; RESP 13–23; TEMP 36.1–37.2; O2SAT 90–99
[2024-03-26] MEDS: GLYCERIN, ADULT 1 EA SUPP 1 EACH PR (00:19)
[2024-03-26] MEDS: oxyCODONE/APAP 5/325 TABLET 2 TAB PO (01:45)
[2024-03-26 05:45] LABS: Basophils # (Auto) 0.1 Thou/mm3 (0.0-0.2); Basophils % (Auto) 1 % (0-2.5); Eosinophils # (Auto) 1.7 Thou/mm3 (0.0-0.5); Eosinophils % (Auto) 18 % (0-10); Hematocrit 38.1 % (36.0-46.0); Hemoglobin 12.2 g/dL (12.0-16.0); Immature Granulocytes % (Auto) 0 % (0-0); Immature Granulocytes Auto 0.03 Thou/mm3 (0.00-0.00); Lymphocytes # (Auto) 2.1 Thou/mm3 (1.0-4.8); Lymphocytes % (Auto) 22 % (10-50); Mean Corpuscular Volume 94 fL (80-100); Monocytes % (Auto) 10 % (0-12); Neutrophils # (Auto) 4.6 Thou/mm3 (1.8-7.7); Neutrophils % (Auto) 49 % (37-80); Nucleated Red Blood Cell % 0 /100 WBC (0); Platelet Count 271 Thou/mm3 (140-440); RDW Standard Deviation 43.4 fL (36.4-46.3); Red Blood Count 4.07 Miln/mm3 (4.00-5.20); White Blood Count 9.5 Thou/mm3 (3.6-11.0)
[2024-03-26 06:43] LABS: Anion Gap 2 (7-16); BUN/Creatinine Ratio 19 Ratio (12-20); Blood Urea Nitrogen 15 mg/dL (9-23); Calcium 9.5 mg/dL (8.3-10.6); Carbon Dioxide 32.6 mMol/L (20.0-31.0); Chloride 101 mMol/L (98-107); Creatinine (Component) 0.8 mg/dL (0.6-1.3); Estimated Creatinine Clearance 68.8 mL/min (>60); Glucose 85 mg/dL (74-106); Osmolality,Calculated 271 (275-295); Phosphorous 3.7 mg/dL (2.4-5.1); Potassium 4.2 mMol/L (3.4-5.1); Sodium 136 mMol/L (136-145); eGFR > 60 See Note
--- NOTE | 2024-03-26 08:10 | ESPR_ITS ---
<Statement entered by Torito Wong MD - 03/26/24 17:36> Patient was seen and examined at the bedside. Patient is undergoing surgery for hip fracture today. Will likely start aspirin 81 mg twice daily after 24 hours for DVT prophylaxis. Patient will need PT eval tomorrow morning. Will likely give pain management as needed. Labs were unremarkable today. All labs and orders were reviewed. I saw and examined the patient, and I agree with current management stated by Dr Jose Antonio MD,PGY1. Plan of care was discussed with the attending physician and resident physician. Disclaimer: Despite multiple revisions, due to the dictation software being used, the document bellow may not be free of grammatical errors including phonetic/typographic errors. However, this does not deter from our commitment to providing health care in the patient's best interest in mind. Dr. Tori MD, PGY 2 Documentation for date of: 03/26/24 Subjective Subjective Interval history: Patient was seen and examined at bedside this AM. No acute exents overnight. Patient tolerating diet, adequate urine output and mentation is at baseline. Patient states that her SOB is the same as yesterday Currently bicarb up trended to 32.6 from 30.3 Patient had a negative fluid balance of 250 cc in the last 24 hours On exam patient had no signs of lower extremity or sacral edema. Will continue to hold IV diuresis for now Patient completed 5-day course of ceftriaxone and azithromycin IV for treatment of communication acquired pneumonia on 03/25 Patient had repeat left hip x-ray 03/24 which showed stable impacted left subcapital fracture Orthopedic surgeon, Dr. Craven plans for fixation of hip fracture today Exam Vital Signs Temp Pulse Resp BP Pulse Ox O2 Del Method O2 Flow Rate 97.2 F 61 23 H 134/80 H 98 Nasal Cannula 4 03/26/24 07:44 03/26/24 07:44 03/26/24 07:44 03/26/24 07:44 03/26/24 07:44 03/26/24 07:44 03/26/24 07:44 Narrative Exam Constitutional Alert, oriented x 3 and comfortable. Elderly female on O2 via NC HEENT Vision grossly intact. Patent nares. Trachea midline Respiratory Chest normal on inspection and decreased AE throughout lung lynne. No wheeze Cardiovascular S1 and S2 audible, RRR. No murmurs carotid bruit. No gross JVD. Abdominal Soft and non tender to palpation in all quadrants. BS + Genitourinary No bladder tenderness, no flank pain. Normal to palpation Musculoskeletal Extremities tone within normal limits. No LE edema.Left leg shortened and externally rotated Neurological CN II - XII grossly intact. Extremity motor and sensation grossly intact. Skin Warm, dry and intact. No apparent lesions. Psychiatric Patient has good affect, is cooperative Objective Labs 03/26/24 04:50 03/26/24 04:50 Labs: Laboratory Results - last 24 hr 03/25/24 03/26/24 11:41 04:50 WBC 9.5 RBC 4.07 Hgb 12.2 Hct 38.1 MCV 94 MCH 30.0 MCHC 32.0 RDW Std Deviation 43.4 Plt Count 271 Neut % (Auto) 49 Lymph % (Auto) 22 [place] % (Auto) 10 Eos % (Auto) 18 H Baso % (Auto) 1 Neut # (Auto) 4.6 Lymph # (Auto) 2.1 [place] # (Auto) 1.0 H Eos # (Auto) 1.7 H Baso # (Auto) 0.1 Immature Gran # (Auto) 0.03 H Absolute Nucleated RBC 0.00 Immature Gran % 0 Nucleated RBC % 0 Sodium 136 Potassium 4.2 Chloride 101 Carbon Dioxide 32.6 H Anion Gap 2 L BUN 15 Creatinine 0.8 Estim Creat Clear Calc 68.8 eGFR > 60 BUN/Creatinine Ratio 19 Glucose 85 Calculated Osmolality 271 L Calcium 9.5 Phosphorus 3.7 Magnesium 2.0 Coccidioides IgM Ab Negative ABG Interpretation ABG results: 03/21/24 03/21/24 03/21/24 01:04 03:37 10:11 ABG pH 7.38 7.38 ABG pCO2 48 52 H ABG pO2 59 L* 110 H D ABG HCO3 28 H 31 H ABG O2 Saturation 90 L 99 H ABG Base Excess 2 4 H VBG pH 7.47 VBG pCO2 41 VBG pO2 87 H VBG Base Excess 5 H Quality Measures Quality Measures VTE prophylaxis Advance care planning discussed with:: patient Assessment & Plan Assessment Current Active Medications: Generic Name Dose Route Start Last Admin Trade Name Freq PRN Reason Stop Dose Admin Acetaminophen 650 mg 03/21/24 08:48 Acetaminophen 325 Mg Tablet PO 04/19/24 22:10 Q6H PRN PAIN 1-3 OR FEVER > 101 Albuterol/Ipratropium 3 ml 03/25/24 15:16 Albuterol/Ipratropium (Duoneb) Rt Pooja 3 Ml Nebu INH 04/23/24 22:59 Q8HRRT PRN Shortness Of Breath Or Wheeze Citalopram Hydrobromide 40 mg 03/21/24 10:45 03/25/24 08:23 Citalopram 20 Mg Tablet PO 04/20/24 10:44 40 mg QDAY MARY BETH Administration Heparin Sodium (Porcine) 5,000 unit 03/22/24 09:00 03/26/24 05:55 Heparin Sod Inj 5000 Unit/Ml Vial SC 04/05/24 08:59 Not Given Q8HR MARY BETH Montelukast Sodium 10 mg 03/21/24 21:00 03/25/24 21:08 Montelukast Sodium 10 Mg Tablet PO 04/20/24 20:59 10 mg HS MARY BETH Administration Mupirocin 0 gm 03/26/24 08:00 Mupirocin Oint 2% 22 Gm Tube TOP 04/02/24 07:59 TID MARY BETH Ondansetron HCl 4 mg 03/20/24 22:11 03/21/24 01:22 Ondansetron Inj 2 Mg/Ml Inj 2 Ml IV 04/19/24 22:10 4 mg Q6H PRN Administration NAUSEA OR VOMITING Protocol Oxycodone/Acetaminophen 2 tab 03/25/24 22:53 03/26/24 01:45 Oxycodone/Apap 5/325 Tablet PO 03/30/24 22:52 2 tab Q6HR PRN Administration PAIN Pantoprazole Sodium 40 mg 03/21/24 09:00 03/25/24 08:23 Pantoprazole 40 Mg Tablet PO 04/20/24 08:59 40 mg QDAY MARY BETH Administration Quetiapine Fumarate 100 mg 03/21/24 21:00 03/25/24 21:08 Quetiapine Fumarate 100 Mg Tablet PO 04/20/24 20:59 100 mg HS MARY BETH Administration Sennosides 1 tab 03/25/24 14:00 03/25/24 15:52 Senna Tablet PO 04/24/24 13:59 1 tab QDAY MARY BETH Administration Protocol Plan 68-year-old female with past medical history of meth use, asthma, psychiatric disorders, and HFpEF (50 to 55% EF 2020) was admitted to the hospital on 03/20/2024 due to left hip fracture secondary to mechanical fall and acute respiratory failure with hypoxia secondary to community-acquired pneumonia with asthma exacerbation versus CHF exacerbation. 1. Acute respiratory failure with hypoxia - resolving Secondary to 2. Community-acquired pneumonia 3. CHF exacerbation ruled out 4. Chronic diastolic congestive heart failure [55%] On admission patient denies any symptoms of chest pain/pressure or palpitations. Also denied any SOB, orthopnea or PND. On exam patient had bilateral lower extremity edema which has now resolved On admission chest x-ray was significant bilateral pulmonary edema with increased vascular markings and extensive reticulonodular opacities. BNP on admission was insignificant at 68 troponin was also negative. Influenza A and B were negative as well as RSV negative Cocci serology was also negative Blood cultures from 03/20 no bacterial growth after 48 hours preliminary. Urine culture from 03/20 grew ESBL E. coli. Sputum Gram stain grew occasional WBCs and 1+ yeast CURB 65 =2 points; moderate risk: 6.8% 30-day mortality. Inpatient vs outpatient treatment PSI/PORT score = 89 point; Risk class III , 0.9-20% mortality. Outpatient or inpatient treatment Transthoracic echocardiogram completed on 03/21 findings include: Normal LV size and function. Mid anterior septal bounce. Estimated EF 55% Normal RV size and function. Trace MR, TR. Patient was on diuresis with furosemide IV 40 Mg IV daily which was discontinued on 03/22 due to contraction alkalosis. Currently patient has no lower extremity or sacral edema and lungs have scattered wheezes on exam, no crackles. Patient had a fluid balance of - 250 cc in the past 24 hours Plan: ? Completed 5 days of ceftriaxone and azithromycin IV from [03/21 - 03/25] ? Continue supplemental O2 as necessary ? Continue to hold IV diuresis, patient euvolemic on exam ? Consider starting patient on FREDO/ARB along with beta-veronica as part of GDMT for heart failure. Pending cardiology recommendations. ? Cardiology consulted, appreciate recommendations. 3. Asthma exacerbation -resolved Patient has history of asthma and on montelukast 10 Mg p.o. every afternoon and albuterol inhaler as needed at home. On admission patient denied any SOB, cannot complete full sentences. On exam she has scattered wheezes heard throughout bilateral lung lynne. In the ED patient received Solu-Medrol 125 Mg IV x 1 and prednisone 40 Mg p.o. x 1 Today on exam patient no longer has wheeze, but decrease AE throughout lung lynne Plan: - Incentive spirometer ? Continue supplemental O2 as necessary to maintain SpO2 >94% ? Increase DuoNebs to as needed 4. Leukocytosis - improving On admission WBC 16.9 up trended to 21.4 and currently down trended to 9.5 DDx: Community-acquired pneumonia, asthma exacerbation, asymptomatic bacteriuria, secondary to steroid use. Plan: ? Continue to monitor CBC 5. Asymptomatic bacteriuria Patient denies any LUTS including dysuria, hesitancy, frequency or nocturia. Urinalysis was positive for bacteria and nitrates and urine culture significant for E. coli ESBL. 6. Choreoathetotic movements?resolved 7. History of psychiatric condition In the ED patient had choreiform movements which have now resolved. Patient states that this is normal for her and knows that this is a side effect of her antipsychotic medication. DDx: Drug intoxication, Candido's, sending him chorea, hyper/hypothyroidism On admission U tox significant for methamphetamine Patient received Benadryl IV in the ED and movement subsided Home medication quetiapine 100 Mg p.o. at bedtime and citalopram 40 Mg p.o. daily Possibly due to medication side effect or intoxication with methamphetamines. Will continue to monitor patient Plan: ? Continue home medication quetiapine 100 Mg p.o. at bedtime and citalopram 40 Mg p.o. daily 8. Acute impacted left subcapital hip fracture Secondary to 9. Ground-level fall Patient presented after ground-level fall from tripping in her house. On admission hip/pelvis x-ray showed acute impacted left subcapital hip fracture On exam patient's left leg shortened and externally rotated. Initially cardiology cleared for surgery but then deemed her unfit in light of treatment for pneumonia and elevated WBC. Patient had repeat left hip x-ray on 03/24 which showed stable impacted left subcapital fracture Cardiology and orthopedics now cleared patient for surgery Plan: ? Keep n.p.o. ? Continue pain management with morphine 2 Mg IV Q3 hourly as needed for severe pain -oxycodone/acetaminophen 5/25 2 tab p.o. Q6 hourly for moderate to severe pain ? Continue DVT prophylaxis with heparin SC ? Patient scheduled for fixation of left hip fracture today ? Continue rest of management as per orthopedics, Dr. Craven. 10. History of methamphetamine use Patient initially denied methamphetamine use, however U tox was positive for methamphetamine on admission. Patient counseled on methamphetamine cessation. Patient agrees 11. Essential hypertension On admission BP 178/85. Currently BP 175/82 Home medication valsartan/HCTZ 320/25 p.o. daily Plan: ? 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 Lines: pIVs GI Prophylaxis: None Thrombo Prophylaxis: Heparin Code status: FULL CODE Plan of care discussed with Attending Dr. Santos and PGY2 Dr. Tori Muñiz MD PGY 1 Attending Provider Attestation/Addendum I have examined the patient, reviewed labs and imaging findings, discussed the case with the resident(s), and reviewed entered orders. I agree with the plan of care as outlined in this note, with these additional summaries/recommendations: Patient seen at bedside. No acute overnight events. Patient has no new complaints today except for left hip pain. Patient completed antibiotic course for bilateral pneumonia likely secondary to gram-negative rods. On minimal O2 at this time, we will continue to wean. Continue Singulair and breathing treatments for history of COPD. Patient will go for surgical pinning of left hip femoral neck fracture today with orthopedics. Physical therapy tomorrow. Repeat hematology and chemistry panel in am. Dr. Santos
[2024-03-26] MEDS: CITALOPRAM 20 MG TABLET 40 MG PO (08:32)
[2024-03-26] MEDS: PANTOPRAZOLE 40 MG TABLET PO (08:32)
[2024-03-26] MEDS: SENNA TABLET 1 TAB PO (08:33)
--- NOTE | 2024-03-26 10:43 | PC.SS ---
Rounding: Pending SX today at 1400
[2024-03-26] MEDS: MUPIROCIN OINT 2% 22 GM TUBE TOP ×2 (11:23→21:05)
[2024-03-26] MEDS: MORPHINE SULF INJ 10 MG/ML VIAL 4 MG IV ×2 (12:16→20:11)
[2024-03-26 12:57] LABS: Cocci Serology, IgG Negative (Negative)
--- NOTE | 2024-03-26 14:15 | XR_ITS ---
Examination: Left hip 3 views Fluoroscopy Exam date and time: March 26, 2024 1556 hours INDICATIONS: Acute left subcapital hip fracture March 20, 2024, operative reduction internal fixation hip fracture today TECHNIQUE AND FINDINGS: AP lateral 3 spot fluoroscopic films left hip Fluoroscopy 57 seconds radiation dose 16.54 milligray Operative reduction internal fixation left subcapital hip fracture Satisfactory alignment IMPRESSION: Operative reduction internal fixation left hip fracture with satisfactory alignment
--- NOTE | 2024-03-26 16:48 | SUR.PHASEI ---
1204 Patient arrived to recovery resting comfortably in bed, drowsy and able to arouse with verbal prompting, on oxygen 8L via oxy mask, breathing unlabored, vital signs stable, denies pain, dressing intact to left hip; prineo, abd, medipore tape, no bleeding noted, lung sounds clear upon auscultation, bilateral dorsalis pedis pulses present when palpated, patient has good circulation to left lower extremity; skin warm to touch and normal color for patient, report received from Guzman NGUYỄN and Dr. Benoit
--- NOTE | 2024-03-26 17:13 | XR_ITS ---
Examination:Left hip AP, lateral, AP pelvis 3 views Technique: Hip AP lateral, AP pelvis, 3 views Exam date and time:March 26, 2024 at 1739 hrs. Indications: Acute left subcapital hip fracture March 20, 2024 postop today Findings: Postop reduction internal fixation left subcapital hip fracture Satisfactory alignment Orthopedic hardware satisfactory position Significant bilateral hip osteoarthritis Bones of the pelvis intact Impression: Postop reduction internal fixation left subcapital hip fracture with satisfactory alignment.
--- NOTE | 2024-03-26 17:42 | PD.ANESPROG ---
Documentation for date of: 03/26/24 ANESTHESIA NOTE: Patient had GETA for L hip repair today. Pre-op, I saw her in holding and she was alert and calm in bed, on 3 L NC O2, had b/l wheezes but w/o distress, O2 sat 93% on 3 L NC O2 upon arrival to OR. She has h/o CVA, HTN and also PNA this hospitalization. She did well intra-op. She did continue to have b/l wheezes and elevated peak airway pressure after intubation, however her O2 sat was > 95% throughout. I gave her Albuterol puffs via ETT and also Mg Sulfate 2 gm SIVPB and her wheezing and peak airway pressures significantly improved on lung protective vent settings. She was given 2 gm IV Ancef intra-op. She was extubated at the end uneventfully and taken to PACU where she is currently doing well, alert, calm, head elevated, NAD, VSS, O2 sat 97% on 3 l/min NC O2. Her HR was high 90s on arrival to PACU with elevated BP, SBP 170s, and it improved after 1 mg IV Metoprolol. Fausto Benoit MD Anesthesia Progress Note Progress Note Most recent Vital Signs: Last Vital Signs Temp 98.9 F 03/26/24 17:18 Pulse 97 03/26/24 17:18 Resp 16 03/26/24 17:18 BP 157/68 H 03/26/24 17:18 Pulse Ox 98 03/26/24 17:18 O2 Del Method Nasal Cannula 03/26/24 11:36 O2 Flow Rate 3 03/26/24 17:18
--- NOTE | 2024-03-26 17:55 | SUR.PHASEI ---
1755 XRAY complete per MD order
--- NOTE | 2024-03-26 18:02 | SUR.PHASEI ---
180 report given to Ra NGUYỄN, patient meets discharge criteria from recovery, awake and talking with staff, on baseline oxygen 3L via nasal cannula, breathing unlabored, vital signs stable, denies pain, dressing intact; no bleeding noted, patient eating ice chips; tolerating well, denies nausea, patient transported via bed to room 272 without incident, patient daughter awaiting in room for patient, Ra NGUYỄN promptly in patient room, patient resting comfortably with call light in reach when this chief writer left patients room.
--- NOTE | 2024-03-26 18:02 | PD.SUROPNT ---
Date of Procedure 03/26/24 Pre Op Diagnosis Impacted subcapital left femoral neck fracture Post Op Diagnosis Same Procedure Synthes FNS fixation Findings Impacted subcapital left femoral neck fracture Procedure Description Patient was taken the operating room and after satisfactory general anesthesia was achieved along with a nerve block the patient was placed on the [place] fracture table. Left lower extremity confirmed as the correct extremity during the timeout procedure She received 2 g of IV Ancef She received 1 g of tranexamic acid at the beginning and the ending of the procedure. Satisfactory images were achieved and the left lower extremity prepped draped in standard fashion. 18-gauge spinal needle was used to determine location of incision. Incision was made over the lateral aspect of the proximal femur and carried down through the subcutaneous tissue tensor fascia mynor and the vastus lateralis. the guidepin was passed into the femoral head. The first pass was too posterior. The second pass was noted to be nicely located. Pin was measured at 83 mm. A 80 mm FNS bolt was selected. 1 hole plate was selected. The implant was assembled on the back table and then after the reamer was passed over the guidepin the bolt was inserted. Satisfactory alignment again was noted. The 1 hole sideplate was then fixed with a locking cortical screw. This was after a 85 mm antirotation screw was placed into the femoral. Wound was irrigated with Betadine saline solution. Gelfoam and vancomycin were placed deep to the wound. The wound was closed in layers. The subcutaneous tissue was closed with 3-0 Vicryl and the skin closed with running 4-0 Monocryl suture subcuticular type. Bulky dressing was applied using Dakin soaked Kerlix sponges dry Kerlix punches and 3 inch Medipore tape. She was taken recovery met eventfully. Sponge and needle counts correct. She was alert in the recovery room. Anesthesia GETA and regional Drains None Implants Synthes 1 hole FNS plate and 80 mm FNS bolt 44 mm x 5 mm cortical locking s Pathology / specimen None Urine Output 0 Estimated Blood Loss 30 Condition Stable Disposition PACU Surgeon Arthur Craven MD Surgical Staff Operation Date: 03/26/24 15:30 Case Staff Anesthesiologist: Fausto Benoit RNtank storage supervisor: Alysha Frankel
[2024-03-26] MEDS: QUEtiapine FUMARATE 100 MG TABLET PO (20:10)
[2024-03-26] MEDS: MONTELUKAST SODIUM 10 MG TABLET PO (20:10)
[2024-03-26] MEDS: SODIUM CHLORIDE 0.9% 1000 ML 1,000 ML 80 ML IV (20:11)
[2024-03-26] MEDS: ceFAZolin/D5W 1 GM IVPB 1 GM/50 ML BAG IV (21:05)
[2024-03-27] VITALS (8 sets, daily range): BP systolic 111–137; BP diastolic 62–80; PULSE 68–90; RESP 16–22; TEMP 36.2–36.9; O2SAT 92–98; BMI 11.0
[2024-03-27] MEDS: oxyCODONE/APAP 5/325 TABLET 2 TAB PO ×2 (04:51→10:41)
[2024-03-27] MEDS: ceFAZolin/D5W 1 GM IVPB 1 GM/50 ML BAG IV (05:34)
[2024-03-27] MEDS: MUPIROCIN OINT 2% 22 GM TUBE TOP ×3 (05:35→20:18)
[2024-03-27] MEDS: MORPHINE SULF INJ 10 MG/ML VIAL 4 MG IV ×3 (05:43→20:15)
[2024-03-27 06:13] LABS: Basophils % (Auto) 0 % (0-2.5); Eosinophils % (Auto) 0 % (0-10); Hemoglobin 11.9 g/dL (12.0-16.0); Immature Granulocytes % (Auto) 0 % (0-0); Immature Granulocytes Auto 0.04 Thou/mm3 (0.00-0.00); Lymphocytes % (Auto) 9 % (10-50); Mean Corpuscular Hemoglobin 30.1 pg (25.0-35.0); Mean Corpuscular Volume 89 fL (80-100); Monocytes # (Auto) 0.5 Thou/mm3 (0.0-0.8); Monocytes % (Auto) 5 % (0-12); Neutrophils # (Auto) 9.5 Thou/mm3 (1.8-7.7); Neutrophils % (Auto) 86 % (37-80); Nucleated Red Blood Cell % 0 /100 WBC (0); Platelet Count 258 Thou/mm3 (140-440); RDW Standard Deviation 40.5 fL (36.4-46.3); Red Blood Count 3.95 Miln/mm3 (4.00-5.20); White Blood Count 11.1 Thou/mm3 (3.6-11.0)
[2024-03-27 06:47] LABS: Albumin, Serum 3.8 gm/dL (3.4-4.8); Anion Gap 5 (7-16); BUN/Creatinine Ratio 18 Ratio (12-20); Blood Urea Nitrogen 14 mg/dL (9-23); Calcium 9.3 mg/dL (8.3-10.6); Calcium (Corrected) 9.5 mg/dL (8.5-10.1); Carbon Dioxide 28.7 mMol/L (20.0-31.0); Chloride 99 mMol/L (98-107); Creatinine (Component) 0.8 mg/dL (0.6-1.3); Estimated Creatinine Clearance 69.2 mL/min (>60); Glucose 148 mg/dL (74-106); Magnesium 2.2 mg/dL (1.6-2.6); Osmolality,Calculated 269 (275-295); Phosphorous 3.1 mg/dL (2.4-5.1); Potassium 4.4 mMol/L (3.4-5.1); Sodium 133 mMol/L (136-145); eGFR > 60 See Note
[2024-03-27] MEDS: PANTOPRAZOLE 40 MG TABLET PO (08:22)
[2024-03-27] MEDS: CITALOPRAM 20 MG TABLET 40 MG PO (08:22)
[2024-03-27] MEDS: SENNA TABLET 1 TAB PO (08:22)
[2024-03-27] MEDS: NALOXEGOL OXALATE 25 MG TABLET (NON-FORMULARY) PO (09:07)
--- NOTE | 2024-03-27 09:48 | ESPR_ITS ---
<Statement entered by Fercho Reese MD - 03/28/24 12:27> I have discussed and was present for the essential components of the history, physical examination, diagnosis, and treatment plan with the resident. I agree with the patient's care as documented by the resident and amended herein by me. Fercho Reese MD. <Statement entered by Torito Wong MD - 03/27/24 15:50> Patient was seen and examined at the bedside. Patient underwent hip fracture surgery without complication by orthopedics, Dr. Craven. Patient is doing well and currently on pain medication. Per orthopedics recommendation will continue Eliquis 2.5 twice daily starting tonight and ordered PT eval and likely discharge her tomorrow to SNF for further rehabilitation. Rest of the labs stable. All labs and orders were reviewed. I saw and examined the patient, and I agree with current management stated by Dr Jose Antonio MD,PGY1. Plan of care was discussed with the attending physician and resident physician. Disclaimer: Despite multiple revisions, due to the dictation software being used, the document bellow may not be free of grammatical errors including phonetic/typographic errors. However, this does not deter from our commitment to providing health care in the patient's best interest in mind. Dr. Tori MD, PGY 2 Documentation for date of: 03/27/24 Subjective Subjective Interval history: Patient was seen and examined at bedside this AM. No acute exents overnight. Patient tolerating diet, adequate urine output and mentation is at baseline. Patient states that her SOB and left hip pain has improved Patient had fixation of left hip fracture yesterday by orthopedic surgeon Dr. Craven. He recommended her to start on DVT prophylaxis with apixaban 2.5 Mg p.o. twice daily from tonight. Also recommended her to stand with physiotherapy today and tomorrow morning. After working with PT he is okay for discharge to acute rehab tomorrow. Recommend to follow-up with orthopedics within 2 weeks of discharge Currently bicarb down trended to 28.7 from 32.6 Patient had a negative fluid balance of 860 cc in the last 24 hours On exam patient had no signs of lower extremity or sacral edema. Will continue to hold IV diuresis for now Patient completed 5-day course of ceftriaxone and azithromycin IV for treatment of communication acquired pneumonia on 03/25 Exam Vital Signs Temp Pulse Resp BP Pulse Ox O2 Del Method O2 Flow Rate 98.4 F 70 17 111/69 98 Nasal Cannula 3 03/27/24 08:00 03/27/24 09:22 03/27/24 09:22 03/27/24 08:00 03/27/24 09:22 03/27/24 08:00 03/27/24 09:22 Narrative Exam Constitutional Alert, oriented x 3 and comfortable. Elderly female on RA HEENT Vision grossly intact. Patent nares. Trachea midline Respiratory Chest normal on inspection and decreased AE throughout lung lynne. No wheeze Cardiovascular S1 and S2 audible, RRR. No murmurs carotid bruit. No gross JVD. Abdominal Soft and non tender to palpation in all quadrants. BS + Genitourinary No bladder tenderness, no flank pain. Normal to palpation Musculoskeletal Extremities tone within normal limits. No LE edema.Left leg shortened Neurological CN II - XII grossly intact. Extremity motor and sensation grossly intact. Skin Warm, dry and intact. No apparent lesions. Psychiatric Patient has good affect, is cooperative Objective Labs 03/27/24 05:17 03/27/24 05:17 Labs: Laboratory Results - last 24 hr 03/25/24 03/27/24 11:41 05:17 WBC 11.1 H RBC 3.95 L Hgb 11.9 L Hct 35.0 L MCV 89 MCH 30.1 MCHC 34.0 RDW Std Deviation 40.5 Plt Count 258 Neut % (Auto) 86 H Lymph % (Auto) 9 L [place] % (Auto) 5 Eos % (Auto) 0 Baso % (Auto) 0 Neut # (Auto) 9.5 H Lymph # (Auto) 1.0 [place] # (Auto) 0.5 Eos # (Auto) 0.0 Baso # (Auto) 0.0 Immature Gran # (Auto) 0.04 H Absolute Nucleated RBC 0.00 Immature Gran % 0 Nucleated RBC % 0 Sodium 133 L Potassium 4.4 Chloride 99 Carbon Dioxide 28.7 Anion Gap 5 L BUN 14 Creatinine 0.8 Estim Creat Clear Calc 69.2 eGFR > 60 BUN/Creatinine Ratio 18 Glucose 148 H D Calculated Osmolality 269 L Calcium 9.3 Corrected Calcium 9.5 Phosphorus 3.1 Magnesium 2.2 Albumin 3.8 Coccidioides IgG Ab Negative ABG Interpretation ABG results: 03/21/24 03/21/2424 01:04 03:37 10:11 ABG pH 7.38 7.38 ABG pCO2 48 52 H ABG pO2 59 L* 110 H D ABG HCO3 28 H 31 H ABG O2 Saturation 90 L 99 H ABG Base Excess 2 4 H VBG pH 7.47 VBG pCO2 41 VBG pO2 87 H VBG Base Excess 5 H Quality Measures Quality Measures VTE prophylaxis Advance care planning discussed with:: patient Assessment & Plan Assessment Current Active Medications: Generic Name Dose Route Start Last Admin Trade Name Freq PRN Reason Stop Dose Admin Acetaminophen 650 mg 03/21/24 08:48 Acetaminophen 325 Mg Tablet PO 04/19/24 22:10 Q6H PRN PAIN 1-3 OR FEVER > 101 Albuterol/Ipratropium 3 ml 03/25/24 15:16 Albuterol/Ipratropium (Duoneb) Rt Pooja 3 Ml Nebu INH 04/23/24 22:59 Q8HRRT PRN Shortness Of Breath Or Wheeze Citalopram Hydrobromide 40 mg 03/21/24 10:45 03/27/24 08:22 Citalopram 20 Mg Tablet PO 04/20/24 10:44 40 mg QDAY MARY BETH Administration Sodium Chloride 1,000 mls @ 80 mls/hr 03/26/24 18:09 03/26/24 20:11 Ns IV 03/27/24 18:08 80 mls/hr .[id number] MARY BETH Administration Montelukast Sodium 10 mg 03/21/24 21:00 03/26/24 20:10 Montelukast Sodium 10 Mg Tablet PO 04/20/24 20:59 10 mg HS MARY BETH Administration Morphine Sulfate 4 mg 03/26/24 08:22 03/27/24 05:43 Morphine Sulf Inj 10 Mg/Ml Vial IV 03/31/24 08:21 4 mg Q4HR PRN Administration PAIN SCALE 7-10 (Severe Mupirocin 0 gm 03/26/24 08:00 03/27/24 05:35 Mupirocin Oint 2% 22 Gm Tube TOP 04/02/24 07:59 1 applicatio TID MARY BETH Administration Naloxegol 25 mg 03/27/24 09:00 03/27/24 09:07 Naloxegol Oxalate 25 Mg Tablet (Non-Formulary) PO 04/26/24 08:59 25 mg QDAY MARY BETH Administration Ondansetron HCl 4 mg 03/20/24 22:11 03/21/24 01:22 Ondansetron Inj 2 Mg/Ml Inj 2 Ml IV 04/19/24 22:10 4 mg Q6H PRN Administration NAUSEA OR VOMITING Protocol Oxycodone/Acetaminophen 2 tab 03/26/24 08:23 03/27/24 04:51 Oxycodone/Apap 5/325 Tablet PO 03/30/24 22:52 2 tab Q6HR PRN Administration PAIN SCALE 4-6 (Moderate Pantoprazole Sodium 40 mg 03/21/24 09:00 03/27/24 08:22 Pantoprazole 40 Mg Tablet PO 04/20/24 08:59 40 mg QDAY MARY BETH Administration Quetiapine Fumarate 100 mg 03/21/24 21:00 03/26/24 20:10 Quetiapine Fumarate 100 Mg Tablet PO 04/20/24 20:59 100 mg HS MARY BETH Administration Sennosides 1 tab 03/25/24 14:00 03/27/24 08:22 Senna Tablet PO 04/24/24 13:59 1 tab QDAY MARY BETH Administration Protocol Plan 68-year-old female with past medical history of meth use, asthma, psychiatric disorders, and HFpEF (50 to 55% EF 2020) was admitted to the hospital on 03/20/2024 due to left hip fracture secondary to mechanical fall and acute respiratory failure with hypoxia secondary to community-acquired pneumonia with asthma exacerbation versus CHF exacerbation. 1. Acute respiratory failure with hypoxia -resolved Secondary to 2. Community-acquired pneumonia?resolving 3. CHF exacerbation ruled out 4. Chronic diastolic congestive heart failure [55%] On admission patient denies any symptoms of chest pain/pressure or palpitations. Also denied any SOB, orthopnea or PND. On exam patient had bilateral lower extremity edema which has now resolved On admission chest x-ray was significant bilateral pulmonary edema with increased vascular markings and extensive reticulonodular opacities. BNP on admission was insignificant at 68 troponin was also negative. Influenza A and B were negative as well as RSV negative Cocci serology was also negative Blood cultures from 03/20 no bacterial growth after 48 hours preliminary. Urine culture from 03/20 grew ESBL E. coli. Sputum Gram stain grew occasional WBCs and 1+ yeast CURB 65 =2 points; moderate risk: 6.8% 30-day mortality. Inpatient vs outpatient treatment PSI/PORT score = 89 point; Risk class III , 0.9-20% mortality. Outpatient or inpatient treatment Transthoracic echocardiogram completed on 03/21 findings include: Normal LV size and function. Mid anterior septal bounce. Estimated EF 55% Normal RV size and function. Trace MR, TR. Patient was on diuresis with furosemide IV 40 Mg IV daily which was discontinued on 03/22 due to contraction alkalosis. Currently patient has no lower extremity or sacral edema and lungs have scattered wheezes on exam, no crackles. Patient had a fluid balance of - 860 cc in the past 24 hours Plan: ? Completed 5 days of ceftriaxone and azithromycin IV from [03/21 - 03/25] ? Continue supplemental O2 as necessary ? Continue to hold IV diuresis, patient euvolemic on exam ? Consider starting patient on FREDO/ARB along with beta-veronica as part of GDMT for heart failure. Pending cardiology recommendations. ? Cardiology consulted, appreciate recommendations. 3. Asthma exacerbation -resolved Patient has history of asthma and on montelukast 10 Mg p.o. every afternoon and albuterol inhaler as needed at home. On admission patient denied any SOB, cannot complete full sentences. On exam she has scattered wheezes heard throughout bilateral lung lynne. In the ED patient received Solu-Medrol 125 Mg IV x 1 and prednisone 40 Mg p.o. x 1 Today on exam patient no longer has wheeze, but decrease AE throughout lung lynne Plan: - Incentive spirometer ? Continue supplemental O2 as necessary to maintain SpO2 >94% ? Increase DuoNebs to as needed 4. Leukocytosis - improving On admission WBC 16.9 up trended to 21.4 and currently down trended to 9.5 DDx: Community-acquired pneumonia, asthma exacerbation, asymptomatic bacteriuria, secondary to steroid use. Plan: ? Continue to monitor CBC 5. Asymptomatic bacteriuria Patient denies any LUTS including dysuria, hesitancy, frequency or nocturia. Urinalysis was positive for bacteria and nitrates and urine culture significant for E. coli ESBL. 6. Choreoathetotic movements?resolved 7. History of psychiatric condition In the ED patient had choreiform movements which have now resolved. Patient states that this is normal for her and knows that this is a side effect of her antipsychotic medication. DDx: Drug intoxication, [facility], sending him chorea, hyper/hypothyroidism On admission U tox significant for methamphetamine Patient received Benadryl IV in the ED and movement subsided Home medication quetiapine 100 Mg p.o. at bedtime and citalopram 40 Mg p.o. daily Possibly due to medication side effect or intoxication with methamphetamines. Will continue to monitor patient Plan: ? Continue home medication quetiapine 100 Mg p.o. at bedtime and citalopram 40 Mg p.o. daily 8. Acute impacted left subcapital hip fracture Secondary to 9. Ground-level fall Patient presented after ground-level fall from tripping in her house. On admission hip/pelvis x-ray showed acute impacted left subcapital hip fracture On exam patient's left leg shortened and externally rotated. Initially cardiology cleared for surgery but then deemed her unfit in light of treatment for pneumonia and elevated WBC. Patient had repeat left hip x-ray on 03/24 which showed stable impacted left subcapital fracture Cardiology and orthopedics now cleared patient for surgery Patient had fixation of left hip fracture yesterday by orthopedic surgeon Dr. Craven. He recommended her to start on DVT prophylaxis with apixaban 2.5 Mg p.o. twice daily from tonight. Also recommended her to stand with physiotherapy today and tomorrow morning. After working with PT he is okay for discharge to acute rehab tomorrow. Recommend to follow-up with orthopedics within 2 weeks of discharge Plan: ? Allow diet - Oxycodone/acetaminophen 5/25 2 tab p.o. Q6 hourly for moderate to severe pain ? Continue pain management with morphine 2 Mg IV Q3 hourly as needed for severe pain ? Resume DVT prophylaxis with Eliquis 2.5 Mg p.o. twice daily starting from tonight ? Recommend to follow-up with orthopedic surgeon, Dr. Craven within 2 weeks of discharge ? Continue rest of management as per orthopedics, Dr. Craven. 10. History of methamphetamine use Patient initially denied methamphetamine use, however U tox was positive for methamphetamine on admission. Patient counseled on methamphetamine cessation. Patient agrees 11. Essential hypertension On admission BP 178/85. Currently BP 128/65 Home medication valsartan/HCTZ 320/25 p.o. daily Plan: ? 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 Anticipate discharge to rehab facility, referral walk tomorrow. Diet: Cardiac Lines: pIVs GI Prophylaxis: None Thrombo Prophylaxis: Apixaban Code status: FULL CODE Plan of care discussed with Attending Dr. Reese and PGY2 Dr. Troi Muñiz MD PGY 1
[2024-03-27] MEDS: SODIUM CHLORIDE 0.9% 1000 ML 1,000 ML 80 ML IV (10:01)
--- NOTE | 2024-03-27 10:16 | PC.SS ---
SS follow up note; SS was contacted by Abby Headley from [facility] and informed SS to fax updated PT notes to Patient's insurance at [phone]. SS will contact PT to evaluate patient and fax out to insurance once PT notes are available.
--- NOTE | 2024-03-27 11:00 | PC.SS ---
SS received a call from Ratna from [facility] informing SS that auth had been obtained. SS informed her that patient will possibly discharge tomorrow.
--- NOTE | 2024-03-27 12:13 | PC.SS ---
SS follow up note; SS faxed PT notes to patient's insurance.
[2024-03-27] MEDS: MONTELUKAST SODIUM 10 MG TABLET PO (20:15)
[2024-03-27] MEDS: QUEtiapine FUMARATE 100 MG TABLET PO (20:15)
[2024-03-27] MEDS: APIXABAN 2.5 MG TABLET PO (20:15)
--- NOTE | 2024-03-27 21:38 | CONPN_ITS ---
Subjective Subjective Brief History: Patient was at her house and fell. After the fall she had pain in her left hip. She was able to ambulate with a cane. She had Thanksgiving with her daughter and was brought to the emergency room with severe pain left hip. No pain in her upper extremities left lower extremities. She does have pain in her left hip no pain left knee left ankle or foot Narrative: Postop day 1. Significantly less pain left hip. Exam Vital Signs Temp Pulse Resp BP Pulse Ox O2 Del Method O2 Flow Rate 98.4 F 71 20 128/71 92 L Room Air 3 03/27/24 20:00 03/27/24 20:00 03/27/24 20:00 03/27/24 20:00 03/27/24 20:00 03/27/24 20:00 03/27/24 09:22 Blood pressure 128/71 Narrative Exam Much more comfortable flexing and extending her left hip which she was not able to do preoperatively. Able to flex left hip to 40 degrees does have active quad and hams control Objective - Ortho Labs 03/27/24 05:17 03/27/24 05:17 Labs: Laboratory Results - last 24 hr 03/27/24 05:17 WBC 11.1 H RBC 3.95 L Hgb 11.9 L Hct 35.0 L MCV 89 MCH 30.1 MCHC 34.0 RDW Std Deviation 40.5 Plt Count 258 Neut % (Auto) 86 H Lymph % (Auto) 9 L [place] % (Auto) 5 Eos % (Auto) 0 Baso % (Auto) 0 Neut # (Auto) 9.5 H Lymph # (Auto) 1.0 [place] # (Auto) 0.5 Eos # (Auto) 0.0 Baso # (Auto) 0.0 Immature Gran # (Auto) 0.04 H Absolute Nucleated RBC 0.00 Immature Gran % 0 Nucleated RBC % 0 Sodium 133 L Potassium 4.4 Chloride 99 Carbon Dioxide 28.7 Anion Gap 5 L BUN 14 Creatinine 0.8 Estim Creat Clear Calc 69.2 eGFR > 60 BUN/Creatinine Ratio 18 Glucose 148 H D Calculated Osmolality 269 L Calcium 9.3 Corrected Calcium 9.5 Phosphorus 3.1 Magnesium 2.2 Albumin 3.8 Hemoglobin 11.9, white count 11,000 ABG Interpretation ABG results: 03/21/24 03/21/24 03/21/24 01:04 03:37 10:11 ABG pH 7.38 7.38 ABG pCO2 48 52 H ABG pO2 59 L* 110 H D ABG HCO3 28 H 31 H ABG O2 Saturation 90 L 99 H ABG Base Excess 2 4 H VBG pH 7.47 VBG pCO2 41 VBG pO2 87 H VBG Base Excess 5 H Assessment & Plan Assessment Additional comments: Postop day 1. Doing well. Plan If all goes well with PT tomorrow I think we could discharge her to SNF. Documentation for date of: 03/27/24
[2024-03-28] VITALS: BP 124/63; PULSE 59; PULSE 74; RESP 16; TEMP 36.3; O2SAT 92
[2024-03-28 04:00] VITALS: BP 141/49; PULSE 61; PULSE 75; RESP 14; TEMP 36.2; O2SAT 93
[2024-03-28] MEDS: MUPIROCIN OINT 2% 22 GM TUBE TOP (05:21)
[2024-03-28 05:56] LABS: Basophils # (Auto) 0.1 Thou/mm3 (0.0-0.2); Basophils % (Auto) 1 % (0-2.5); Eosinophils # (Auto) 0.6 Thou/mm3 (0.0-0.5); Eosinophils % (Auto) 5 % (0-10); Hematocrit 33.1 % (36.0-46.0); Hemoglobin 10.9 g/dL (12.0-16.0); Immature Granulocytes % (Auto) 1 % (0-0); Immature Granulocytes Auto 0.06 Thou/mm3 (0.00-0.00); Lymphocytes # (Auto) 3.1 Thou/mm3 (1.0-4.8); Lymphocytes % (Auto) 25 % (10-50); Mean Corpuscular HGB Conc 32.9 g/dl (31.0-37.0); Mean Corpuscular Hemoglobin 30.1 pg (25.0-35.0); Mean Corpuscular Volume 91 fL (80-100); Monocytes # (Auto) 1.3 Thou/mm3 (0.0-0.8); Monocytes % (Auto) 10 % (0-12); Neutrophils # (Auto) 7.1 Thou/mm3 (1.8-7.7); Neutrophils % (Auto) 58 % (37-80); Nucleated Red Blood Cell % 0 /100 WBC (0); Platelet Count 271 Thou/mm3 (140-440); RDW Standard Deviation 43.1 fL (36.4-46.3); Red Blood Count 3.62 Miln/mm3 (4.00-5.20); White Blood Count 12.2 Thou/mm3 (3.6-11.0)
[2024-03-28 06:32] LABS: Anion Gap 3 (7-16); BUN/Creatinine Ratio 19 Ratio (12-20); Blood Urea Nitrogen 17 mg/dL (9-23); Calcium 9.2 mg/dL (8.3-10.6); Carbon Dioxide 30.7 mMol/L (20.0-31.0); Chloride 105 mMol/L (98-107); Creatinine (Component) 0.9 mg/dL (0.6-1.3); Estimated Creatinine Clearance 61.5 mL/min (>60); Glucose 88 mg/dL (74-106); Magnesium 2.1 mg/dL (1.6-2.6); Osmolality,Calculated 278 (275-295); Phosphorous 3.6 mg/dL (2.4-5.1); Potassium 4.5 mMol/L (3.4-5.1); Sodium 139 mMol/L (136-145); eGFR > 60 See Note
[2024-03-28 07:03] VITALS: PULSE 72; RESP 18; O2SAT 99
[2024-03-28 07:58] VITALS: BP 170/70; PULSE 79; RESP 21; TEMP 36.4; O2SAT 94
[2024-03-28 08:00] VITALS: PULSE 72
[2024-03-28] MEDS: PANTOPRAZOLE 40 MG TABLET PO (08:17)
[2024-03-28] MEDS: MORPHINE SULF INJ 10 MG/ML VIAL 4 MG IV (08:17)
[2024-03-28] MEDS: SENNA TABLET 1 TAB PO (08:17)
[2024-03-28] MEDS: CITALOPRAM 20 MG TABLET 40 MG PO (08:17)
[2024-03-28] MEDS: APIXABAN 2.5 MG TABLET PO (08:17)
[2024-03-28] MEDS: oxyCODONE/APAP 5/325 TABLET 2 TAB PO (09:26)
--- NOTE | 2024-03-28 09:46 | PD.RESPRO ---
Documentation for date of: 03/28/24 Exam Vital Signs Temp Pulse Resp BP Pulse Ox O2 Del Method O2 Flow Rate 97.5 F 72 21 H 170/70 H 94 L Room Air 2 03/28/24 07:58 03/28/24 08:00 03/28/24 07:58 03/28/24 07:58 03/28/24 07:58 03/28/24 07:58 03/28/24 07:58 Objective Labs 03/28/24 05:00 03/28/24 05:00 Labs: Laboratory Results - last 24 hr 03/28/24 05:00 WBC 12.2 H RBC 3.62 L Hgb 10.9 L Hct 33.1 L MCV 91 MCH 30.1 MCHC 32.9 RDW Std Deviation 43.1 Plt Count 271 Neut % (Auto) 58 Lymph % (Auto) 25 [place] % (Auto) 10 Eos % (Auto) 5 Baso % (Auto) 1 Neut # (Auto) 7.1 Lymph # (Auto) 3.1 [place] # (Auto) 1.3 H Eos # (Auto) 0.6 H Baso # (Auto) 0.1 Immature Gran # (Auto) 0.06 H Absolute Nucleated RBC 0.00 Immature Gran % 1 H Nucleated RBC % 0 Sodium 139 Potassium 4.5 Chloride 105 Carbon Dioxide 30.7 Anion Gap 3 L BUN 17 Creatinine 0.9 Estim Creat Clear Calc 61.5 eGFR > 60 BUN/Creatinine Ratio 19 Glucose 88 D Calculated Osmolality 278 Calcium 9.2 Phosphorus 3.6 Magnesium 2.1 ABG Interpretation ABG results: 03/21/24 03/21/24 03/21/24 01:04 03:37 10:11 ABG pH 7.38 7.38 ABG pCO2 48 52 H ABG pO2 59 L* 110 H D ABG HCO3 28 H 31 H ABG O2 Saturation 90 L 99 H ABG Base Excess 2 4 H VBG pH 7.47 VBG pCO2 41 VBG pO2 87 H VBG Base Excess 5 H Quality Measures Quality Measures VTE prophylaxis Assessment & Plan Assessment Current Active Medications: Generic Name Dose Route Start Last Admin Trade Name Freq PRN Reason Stop Dose Admin Acetaminophen 650 mg 03/21/24 08:48 Acetaminophen 325 Mg Tablet PO 04/19/24 22:10 Q6H PRN PAIN 1-3 OR FEVER > 101 Albuterol/Ipratropium 3 ml 03/25/24 15:16 Albuterol/Ipratropium (Duoneb) Rt Pooja 3 Ml Nebu INH 04/23/24 22:59 Q8HRRT PRN Shortness Of Breath Or Wheeze Apixaban 2.5 mg 03/27/24 21:00 03/28/24 08:17 Apixaban 2.5 Mg Tablet PO 04/26/24 20:59 2.5 mg BID MARY BETH Administration Citalopram Hydrobromide 40 mg 03/21/24 10:45 03/28/24 08:17 Citalopram 20 Mg Tablet PO 04/20/24 10:44 40 mg QDAY MARY BETH Administration Montelukast Sodium 10 mg 03/21/24 21:00 03/27/24 20:15 Montelukast Sodium 10 Mg Tablet PO 04/20/24 20:59 10 mg HS MARY BETH Administration Morphine Sulfate 4 mg 03/26/24 08:22 03/28/24 08:17 Morphine Sulf Inj 10 Mg/Ml Vial IV 03/31/24 08:21 4 mg Q4HR PRN Administration PAIN SCALE 7-10 (Severe Mupirocin 0 gm 03/26/24 08:00 03/28/24 05:21 Mupirocin Oint 2% 22 Gm Tube TOP 04/02/24 07:59 1 applicatio TID MARY BETH Administration Naloxegol 25 mg 03/27/24 09:00 03/27/24 09:07 Naloxegol Oxalate 25 Mg Tablet (Non-Formulary) PO 04/26/24 08:59 25 mg QDAY MARY BETH Administration Ondansetron HCl 4 mg 03/20/24 22:11 03/21/24 01:22 Ondansetron Inj 2 Mg/Ml Inj 2 Ml IV 04/19/24 22:10 4 mg Q6H PRN Administration NAUSEA OR VOMITING Protocol Oxycodone/Acetaminophen 2 tab 03/26/24 08:23 03/28/24 09:26 Oxycodone/Apap 5/325 Tablet PO 03/30/24 22:52 2 tab Q6HR PRN Administration PAIN SCALE 4-6 (Moderate Pantoprazole Sodium 40 mg 03/21/24 09:00 03/28/24 08:17 Pantoprazole 40 Mg Tablet PO 04/20/24 08:59 40 mg QDAY MARY BETH Administration Quetiapine Fumarate 100 mg 03/21/24 21:00 03/27/24 20:15 Quetiapine Fumarate 100 Mg Tablet PO 04/20/24 20:59 100 mg HS MARY BETH Administration Sennosides 1 tab 03/25/24 14:00 03/28/24 08:17 Senna Tablet PO 04/24/24 13:59 1 tab QDAY MARY BETH Administration Protocol
[2024-03-28] MEDS: NALOXEGOL OXALATE 25 MG TABLET (NON-FORMULARY) PO (09:48)
--- NOTE | 2024-03-28 09:57 | ESDS_ITS ---
<Statement entered by Fercho Reese MD - 03/28/24 17:04> I have discussed and was present for the essential components of the history, physical examination, diagnosis, and treatment plan with the resident. I agree with the patient's care as documented by the resident and amended herein by me. Fercho Reese MD. <Statement entered by Torito Wong MD - 03/28/24 10:04> I saw and examined the patient, and I agree with current management stated by Dr Jose Antonio MD,PGY1. Plan of care was discussed with the attending physician and resident physician. Disclaimer: Despite multiple revisions, due to the dictation software being used, the document bellow may not be free of grammatical errors including phonetic/typographic errors. However, this does not deter from our commitment to providing health care in the patient's best interest in mind. Dr. Judith MD, PGY 2 Planned Discharge Date 03/28/24 DS: Providers Provider Date of admission: 03/20/24 22:11 Primary care physician: Richi Abreu MD Admitting Provider: Dipak Bergman MD Attending Provider on Admission: Fercho Reese MD Consults: 03/20/24 19:38 Consult to Cardiology Stat Comment: Consulting Provider: Bjorn Smiley Instructions: 68-year-old with movement disorder, and chronic methamphetamine use, COPD, needs left hip operation. 03/21/24 09:21 Consult to Orthopedic Routine Comment: Consulting Provider: Arthur Craven 03/26/24 18:09 Referral Care Management Routine Comment: Instructions: Will need SNF plan Referral Physical Therapy Routine Comment: Gait Training Physician Instructions: Instructions: Weight-bear to 50 pounds Attending Provider on DC: Fercho Reese MD Discharging Provider: Jose Antonio Muñiz MD DS: Diagnosis Problem List Completed Was Problem List Reviewed/Reconciled?: Yes Hospital Course Hospital Course Hospital course: 68-year-old female with past medical history of meth use, asthma, psychiatric disorders, and HFpEF (50 to 55% EF 2020) was admitted to the hospital on 03/20/2024 due to left hip fracture secondary to mechanical fall and acute respiratory failure with hypoxia secondary to community-acquired pneumonia with asthma exacerbation versus CHF exacerbation. Initially on admission patient was hypoxic and required supplemental O2, she also had bilateral lower extremity edema and her admission chest x-ray was significant for bilateral pulmonary edema with increased vascular markings and extensive reticulonodular opacities. BNP on admission was insignificant at 67 and troponin was also negative. Influenza A B, RSV and cocci serology were all negative as well. Blood cultures showed no bacterial growth however urine culture grew ESBL E. coli. Patient did not complain of any urinary symptoms so this was deemed as asymptomatic bacteriuria. Patient had intermittent wheeze as well as a productive cough initially and was treated for CAP. For her community-acquired pneumonia she was treated with 5 days of ceftriaxone and azithromycin IV from [03/21 - 03/25]. She was also treated with DuoNebs initially Q4 hourly and transition to as needed-wheezing improved. For her left hip fracture patient eventually had surgery after completing her course of antibiotics for community-acquired pneumonia orthopedics deemed her unfit for surgery initially. On 03/26 patient had successful Synthes FNS fixation of her acute impacted left subcapital hip fracture by orthopedics, Dr. Craven. Day 2 postop DVT prophylaxis with Eliquis 2.5 Mg p.o. twice daily was started and also patient started to work with physiotherapy standing out of bed. All patient's labs have now returned to baseline and patient is clinically stable and fit for discharge to acute rehab facility, [facility]. Discharge diagnoses: 1. Acute respiratory failure with hypoxia?resolved 2. Community-acquired pneumonia?resolving 3. CHF exacerbation ruled out 4. Chronic diastolic congestive heart failure [55%] 5. Asthma exacerbation?resolving 6. Leukocytosis?resolved 7. Asymptomatic bacteriuria 8. Choreoathetotic movements?resolved 9. History of psychiatric illness 10. Acute impacted left subcapital hip fracture s/p fixation on 03/26 11. Ground-level fall 12. History of methamphetamine use 13. Essential hypertension 14. MRSA nasal colonization Discharge plan: ? You have been started on a medication Eliquis to prevent any clot formation in your legs. Take 1 tablet twice a day as prescribed. ? Continue to take your rest of medications as listed below as prescribed. ? Follow-up with your primary care doctor within 2 weeks of discharge ? Follow-up with orthopedics, Dr. Craven within 1 week of discharge. ? If you experience any new or worsening of symptoms call your primary doctor, 911 or present to the emergency room. We are grateful to be able to participate in Ms. Finnegan's care. We wish her the best. Plan of care discussed with Attending Dr. Reese and PGY2 Dr. Judith Muñiz MD PGY 1 Time Spent with Patient Time attestation: Total time spent providing and/or coordinating discharge services: Time spent: Greater than 30 minutes (35) Exam Vital Signs Temp Pulse Resp BP Pulse Ox O2 Del Method O2 Flow Rate 97.5 F 72 21 H 170/70 H 94 L Room Air 2 03/28/24 07:58 03/28/24 08:00 03/28/24 07:58 03/28/24 07:58 03/28/24 07:58 03/28/24 07:58 03/28/24 07:58 Narrative Exam Constitutional Alert, oriented x 3 and comfortable. Elderly female on RA HEENT Vision grossly intact. Patent nares. Trachea midline Respiratory Chest normal on inspection and decreased AE throughout lung lynne. No wheeze Cardiovascular S1 and S2 audible, RRR. No murmurs carotid bruit. No gross JVD. Abdominal Soft and non tender to palpation in all quadrants. BS + Genitourinary No bladder tenderness, no flank pain. Normal to palpation Musculoskeletal Extremities tone within normal limits. No LE edema.Left leg shortened and swollen Neurological CN II - XII grossly intact. Extremity motor and sensation grossly intact. Skin Warm, dry and intact. No apparent lesions. Psychiatric Patient has good affect, is cooperative Discharge Plan Plan Patient Disposition: Xfer Skilled Nsg Fac (SNF) Disposition Comment: med/surg Patient condition on transfer: Stable Care Plan Goals: Take Eliquis 2.5 mg twice daily for 33 more days to prevent clot formation in legs for DVT prophylaxis Take all home medications prescribed Follow-up with PCP as outpatient within 2 weeks Follow-up with orthopedics as outpatient within a week In case of emergency, call 911 or come back to the ED Prescriptions/Referrals Prescriptions/Med Rec: New Eliquis 2.5 mg Tablet 2.5 mg PO BID 33 Days Qty: 66 0RF Continued citalopram 40 mg Tablet 40 mg PO QDAY montelukast 10 mg Tablet 10 mg PO QPM valsartan-hydrochlorothiazide 320-25 mg tablet 1 tab PO QDAY quetiapine [Seroquel] 100 mg Tablet 100 mg PO HS omeprazole 40 mg Capsule,Delayed Release(Dr/Ec) 40 mg PO DAILY benztropine 1 mg Tablet 1 mg PO HS albuterol 90 mcg/actuation Aerosol 90 mcg INHALATION BID PRN (Reason: Shortness Of Breath) Referrals: Richi Abreu MD [Primary Care Provider] - Arthur Craven MD [Physician] - Patient/Caregiver Discharge Instructions Discharge Activity: as per physical therapy Print Language: [place] Stand Alone Forms: Ibeth Award Info., Patient Portal Info Letter Discharge Order Discharge Orders: Discharge (Routine); Ordered 03/28/24 Ordered By: Miranda Castillo Quality Discharge Quality Measures VTE prophylaxis
--- NOTE | 2024-03-28 11:00 | PC.SS ---
SS set up transportation with [facility] for 1400. SS made patients nurse Bre made aware. SS left VM to patient's daughter in regards to ETA.
[2024-03-28 11:39] VITALS: BMI 12.0
[2024-03-28 12:00] VITALS: BP 139/72; PULSE 58; PULSE 72; RESP 17; TEMP 36.1; O2SAT 93
--- NOTE | 2024-03-28 12:40 | PC.SS ---
SS was informed by Dr. Padron if SS could contact family and have a goals of care meeting sooner, due to patient not doing well. SS contacted patient's daughter, Fabi and informed her that the Dr wanted to have goals of care meeting today, Stacy informed SS she would be on her way to the hospital as well as her siblings.
--- NOTE | 2024-03-28 14:18 | PC.NURSE ---
report given to amari ann at [facility] at 1400. answered all questions pertaining to pt's care and treatment plan. [facility] arrived for pt transport at 1415. pt transferred via ambulance on 2l nc, pt alert and oriented, no distress noted, iv and haley d/c prior to discharge.
== END 2024-03-28 14:20 | disposition skilled nursing facility (03) | DRG 480 ==
LOC: SERX 18:22 → SERHOLD 23:11 → S3NX 03-21 02:40 → S2NX 03-22 07:04
PROVIDERS: Emergency Medicine; Orthopaedic Surgery; Student in an Organized Health Care Education/Training Program; Admitting Provider Student in an Organized Health Care Education/Training Program; Emergency Provider Emergency Medicine; PCP Family Medicine; Visit Provider Internal Medicine
PROC: 0QH734Z Insertion of Internal Fixation Device into Left Upper Femur, Percutaneous Approach (ICD-10-PCS; principal; 2024-03-26 15:15)
DX: S72.012A Unspecified intracapsular fracture of left femur, initial encounter for closed fracture (principal); J18.9 Pneumonia, unspecified organism; J96.01 Acute respiratory failure with hypoxia; G25.9 Extrapyramidal and movement disorder, unspecified; N39.0 Urinary tract infection, site not specified; Z16.12 Extended spectrum beta lactamase (ESBL) resistance; I50.32 Chronic diastolic (congestive) heart failure; J45.901 Unspecified asthma with (acute) exacerbation; E87.3 Alkalosis; J44.0 Chronic obstructive pulmonary disease with (acute) lower respiratory infection; E87.6 Hypokalemia; I11.0 Hypertensive heart disease with heart failure; B96.20 Unspecified Escherichia coli [E. coli] as the cause of diseases classified elsewhere; F15.10 Other stimulant abuse, uncomplicated; F12.10 Cannabis abuse, uncomplicated; Z22.322 Carrier or suspected carrier of Methicillin resistant Staphylococcus aureus; Z87.891 Personal history of nicotine dependence; R29.6 Repeated falls; W01.0XXA Fall on same level from slipping, tripping and stumbling without subsequent striking against object, initial encounter; Y92.009 Unspecified place in unspecified non-institutional (private) residence as the place of occurrence of the external cause; T50.2X5A Adverse effect of carbonic-anhydrase inhibitors, benzothiadiazides and other diuretics, initial encounter; Y92.230 Patient room in hospital as the place of occurrence of the external cause
CPT/HCPCS: 36415; 36600; 70450; 71045; 71275; 72192; 73501; 73502; 76000; 80048; 80053; 80061; 80069; 80307; 80320; 81001; 82550; 82803; 83605; 83615; 83690; 83735; 83880; 84100; 84145; 84443; 84484; 85025; 85610; 85730; 86331; 86635; 87040; 87077; 87081; 87086; 87106; 87186; 87205; 87502; 87634; 87811; 93005; 93306; 94640; 94664; 94762; 96374; 96375; 96376; 97162; 99291; A4649; A9270; C1713; C1769; J0456; J0689; J0690; J0696; J1100; J1200; J1630; J1643; J1940; J2060; J2250; J2270; J2405; J2543; J2704; J2710; J2795; J2919; J3010; J3371; J3475; J3480; J3490; J7030; J7040; J7050; J7512; Q9967; G0480; J1596; J1644; J3370

== ENCOUNTER → 2025-01-06 | Outpatient (CLI) | payer MEDICARE, MEDICAID, SELFPAY ==
--- NOTE | 2025-01-06 13:30 | XR_ITS ---
Examination: CT abdomen with intravenous contrast. Coronal 2-D reconstructions. Sagittal 2-D reconstructions. Date and time of exam:January 06, 2025 1407 hours Abdominal discomfort beginning 3 months ago CTDI: vol (mGy): 10.9 DLP: (mGycm): 400 29 Technique: Axial images of the abdomen have been obtained, 3 mm slice thickness, 30 cc [id number] 2-D sagittal coronal reconstructions Low dose protocols were performed. One or more of the following dose reduction techniques were used; automated exposure control, adjustment of the mA and/or KV according to patient size, use of iterative reconstruction technique. Findings: No focal liver or splenic lesions No gallstones No pancreatic or adrenal mass Multiple bilateral renal calculi 2 to 4 mm, no hydronephrosis or ureteral calculi Abdominal aortic calcification no aneurysmal dilatation Normal appendix No bowel obstruction No ascites IMPRESSION: Multiple bilateral nonobstructing renal calculi Normal appendix No bowel obstruction
== END | disposition home or self-care (01) ==
LOC: CCTX 13:00
PROVIDERS: PCP Family Medicine; Referring Provider Family Medicine; Visit Provider Family Medicine
DX: N20.0 Calculus of kidney (principal)
CPT/HCPCS: 74160; A4649; Q9967